=== PATIENT | female | born 1960 | race African-American/Black ===

== ENCOUNTER 2023-11-14 04:39 | Inpatient (IN) | payer OTHER ==
--- OUTSIDE RECORDS SUMMARY | 2023-11-14 04:43 | XMS REPORT | Continuity of Care Document ---
Author Name Unknown Address [address] [place] [address] [facility] Address [address] [place] [address] Care Team Providers Care Erp Developer Name Role Phone KELTON PIERRE Attending Clinician Unavailable LAINA GUDINO Attending Clinician SUKI Melissa Attending Clinician Unavaila Kelton Barajas DO Attending Clinician [phone] LAB90 Attending Clinician Unavailable Laina Gudino MD Attending Clinician [phone] JE SANABRIA Attending Clinician Unavailable Payers Payer Name Policy Type Policy Number Effective Date Expirati on Date Source [employer] MED[employer]ARE [employer]AGE DUAL PLAN HMO 7 [id number] 2022 00:00:00 Problems Condition Name Condition Details Condition Category Status Onset Date Resolution Date Last Treatment Date Treating Clinician Comments Source Gastroesop hageal reflux disease without esophagiti s Gastroesop hageal reflux disease without esophagiti s Disease Active 2021-11 00:00: 00 Evelina snow Primary hypertensi on Primary hypertensi on Disease Active 08-03 00:00: 00 Evelina Avitiaa edy Stage 3a chronic kidney disease Stage 3a chronic kidney disease Disease Active 08-03 00:00: 00 Evelina snow Elevated liver enzymes Elevated liver enzymes Disease Active 08-03 00:00: 00 Evelina Seybold - Externa l History of alcohol abuse History of alcohol abuse Disease Active 08-03 00:00: 00 Evelina Donovan - Externa l Primary insomnia Primary insomnia Disease Active 08-03 00:00: 00 Evelina Donovan - Externa l Prediabete s Prediabete s Disease Active 06-07 00:00: 00 Evelina Donovan - Externa l Social History Social Habit Start Date Stop Date Quantity Comments Source History SDOH Alcohol Frequency Evelina montero - External History SDOH Alcohol Std Drinks Evelina martinez - External History SDOH Alcohol Binge Evelina Donovan - External Alcohol intake 2022-09-29 00:00:00 2022-09-29 00:00:00 Ex-drinker (finding) Evelina Donovan - External Cigarettes smoked current (pack per day) - Reported 2022-08-03 00:00:00 2022-08-03 00:00:00 Evelina Donovan - External Cigarette pack-years 2022-08-03 00:00:00 2022-08-03 00:00:00 Evelina Donovan - External Tobacco use and exposure 2022-08-03 00:00:00 2022-08-03 00:00:00 Smokeless tobacco non-user Evelina Donovan - External Alcohol Comment 2022-08-03 00:00:00 2022-08-03 00:00:00 Previously heavy drinker. Quit in 2019 Evelina Donovan - External Education 2022-08-03 00:00:00 2022-08-03 00:00:00 16 Evelina Donovan - External Sex Ass[birth year] At 1960 00:00:00 1960 00:00:00 Evelina Donovan - External Smoking Status Start Date Stop Date Source Smokes tobacco daily 2022-08-03 00:00:00 Evelina Donovan - External Medications Ordered Medication Name Filled Medication Name Start Date Stop Date Current Medication? Ordering Clinician Indication Dosage Frequency Signature (SIG) Comments Components Source Escitalopra m Oxalate 10 MG oral Tablet 2021-11 00:00: 00 09-29 00:00 :00 No Evelina snow Carvedilol (Coreg) 3.125 MG oral Tablet 08-04 00:00: 00 Yes [id number] 3.125mg Take 1 tablet (3.125 mg total) by mouth in the morning and 1 tablet (3.125 mg total) in the evening. Take with meals. Evelina snow Carvedilol (Coreg) 3.125 MG oral Tablet 08-04 00:00: 00 Yes [id number] 3.125mg Take 1 tablet (3.125 mg total) by mouth in the morning and 1 tablet (3.125 mg total) in the evening. Take with meals. Evelina snow Amlodipine Besylate 10 MG oral Tablet 06-30 00:00: 00 Yes [id number] 10mg Take 1 tablet (10 mg total) by mouth daily Evelina snow Amlodipine Besylate 10 MG oral Tablet 06-30 00:00: 00 Yes [id number] 10mg Take 1 tablet (10 mg total) by mouth daily Evelina snow Vital Signs Vital Name Observation Time Observation Value Comments S ource Systolic blood pressure 2022-09-29 15:24:00 138 mm[Hg] Evelinarosie Matao ld - External Diastolic blood pressure 2022-09-29 15:24:00 70 mm[Hg] Evelina randallo ld - External Heart rate 2022-09-29 15:24:00 82 /min Evelyn mendoza Venus - External Body temperature 2022-09-29 15:24:00 36.28 Indira Evelina Semichelle - External Respiratory rate 2022-09-29 15:24:00 14 /min Evelina Donovan - External Body height 2022-09-29 15:24:00 160 cm Eleonora johnson Seybold - External Body weight 2022-09-29 15:24:00 68.947 kg Eleonora alex Joseybold - External BMI 2022-09-29 15:24:00 26.93 kg/m2 Eleonora alex Joseybold - External Systolic blood pressure 2022-08-31 15:37:00 130 mm[Hg] Evelinarosie Matao ld - External Diastolic blood pressure 2022-08-31 15:37:00 70 mm[Hg] Evelina randallo ld - External Heart rate 2022-08-31 14:58:00 77 /min Evelyn Donovan - External Body temperature 2022-08-31 14:58:00 36.17 Indira Evelina Donovan - External Respiratory rate 2022-08-31 14:58:00 14 /min Evelina Donovan - External Body height 2022-08-31 14:58:00 160 cm Eleonora johnson Seybold - External Body weight 2022-08-31 14:58:00 67.132 kg Eleonora ey Seybold - External BMI 2022-08-31 14:58:00 26.22 kg/m2 Eleonora ey Seybold - External Encounters Start Date/Time End Date/Time Encounter Type Admission Type Attending [facility] Care Department Encounter ID Source 2023-11-07 16:20:41 2023-11-07 16:20:41 Outpatient SFA SFA [id number] [place] 2023-11-05 13:38:31 2023-11-05 13:38:31 Outpatient SFA SFA [id number] [place] 2023-10-16 00:00:00 2023-10-16 00:00:00 Outpatient KELTON PIERRE [id number] Evelina ybcoco 2023-10-14 00:00:00 2023-10-14 00:00:00 Outpatient KELTON PIERRE [id number] Evelina Donovan 2023-09-21 08:23:47 2023-09-21 08:23:47 Outpatient SFA SFA [id number] [place] 2023-09-09 00:00:00 2023-09-09 00:00:00 Outpatient KELTON PIERRE [id number] Evelina ybcoco 2023-09-08 00:00:00 2023-09-08 00:00:00 Outpatient KELTON PIERRE [id number] Evelina Donovan 2023-06-05 13:04:29 2023-06-05 13:04:29 Outpatient SFA SFA [id number] [place] 2023-05-02 14:30:00 2023-05-02 14:30:00 Outpatient KELTON PIERRE [id number] Evelina [facility] 2023-04-27 00:00:00 2023-04-27 00:00:00 Outpatient KELTON PIERRE EVELINA MALIK [id number] Evelina [facility] 2023-04-11 13:26:37 2023-04-11 13:26:37 Outpatient SFA SFA [id number] [place] 2023-04-02 00:00:00 2023-04-02 00:00:00 Outpatient KELTON PIERREROSIE MALIK [id number] Evelina [facility] 2023-04-01 00:00:00 2023-04-01 00:00:00 Outpatient KELTON PIERRE EVELINA MALIK [id number] Evelina [facility] 2023-03-30 13:07:56 2023-03-30 13:07:56 Outpatient SFA SFA [id number] [address] [place] 2023-03-20 13:08:10 2023-03-20 13:08:10 Outpatient SFA SFA [id number] [facility] [place] 2023-03-01 08:15:00 2023-03-01 08:15:00 Outpatient KELTON PIERRE EVELINA MALIK [id number] Evelina [facility] 2022-12-29 00:00:00 2022-12-29 00:00:00 Outpatient LAINA GUDINO [id number] Evelina [facility] 2022-12-27 00:00:00 2022-12-27 00:00:00 Outpatient KELTON PIERRE EVELINA MALIK [id number] [facility] 2022-12-08 10:45:00 2022-12-08 10:45:00 Outpatient NAVARRO PIERRECLAYTON MALIK [id number] Evelina [facility] 2022-11-27 00:00:00 2022-11-27 00:00:00 Outpatient SUKI PANDA [id number] Evelina [facility] 2022-10-16 00:00:00 2022-10-16 00:00:00 Outpatient NAVARRO PIERRECLAYTON MALIK [id number] [facility] 2022-10-02 00:00:00 2022-10-02 00:00:00 Outpatient PREZAS, KELTON MALIK [id number] E[facility]ina [facility] 2022-10-02 00:00:00 2022-10-02 00:00:00 Outpatient PREZAS, KELTON MALIK [id number] Evelina [facility] 2022-09-29 10:30:00 2022-09-29 10:30:00 Outpatient PREZAS, KELTON MALIK [id number] E[facility]ina [facility] 2022-08-31 10:00:00 2022-08-31 10:00:00 Outpatient PREZAS, KELTON MALIK [id number] E[facility]ina [facility] 2022-08-05 00:00:00 2022-08-05 00:00:00 Outpatient LAINA GUDINO EVELINAROSIE MALIK [id number] Evelina [facility] 2022-08-04 00:00:00 2022-08-04 00:00:00 Outpatient PREZAS, KELTON MALIK [id number] Evelina [facility] 2022-08-03 11:15:00 2022-08-03 11:45:00 Office Visit Kelton Pierre [id number] Evelina [facility] 2022-07-25 00:00:00 2022-07-25 00:00:00 Outpatient PREZASKELTONSEY [id number] Evelina [facility] 2022-06-30 11:15:00 2022-06-30 11:15:00 Outpatient DARIEN HERRERASEY [id number] Evelina [facility] 2022-06-30 10:30:00 2022-06-30 11:00:00 Office Visit Laina Gudino [id number] Evelina [facility] 2022-06-16 13:45:00 2022-06-16 14:00:00 Office Visit Laina Gudino [place] [id number] Evelina michelle 2022-06-14 13:30:00 2022-06-14 13:30:00 Outpatient TERESE LAINA MALIK [id number] Evelina [facility] 2022-06-07 00:00:00 2022-06-07 00:00:00 Outpatient LAINA GUDINO [id number] Evel[facility] 2022-06-02 00:00:00 2022-06-02 00:00:00 Outpatient JE SANABRIA [id number] Evelina [facility] 2022-05-31 10:20:00 2022-05-31 10:20:00 Outpatient LAB90 EVELINA MALIK [id number] Evelina [facility] 2022-05-31 09:30:00 2022-05-31 10:00:00 Office Visit ManchesterLaina tuttledianelys [place] [id number] Evelina [facility]
[2023-11-14] MEDS ORDERED: ONDANSETRON 4 MG/2 ML VIAL ONE (05:17)
[2023-11-14] MEDS ORDERED: KETOROLAC 30 MG/ML INJ ONE (05:17)
[2023-11-14] MEDS ORDERED: MORPHINE 4 MG/ML SYR ONE ×4 (05:18→14:14)
[2023-11-14] MEDS ORDERED: NA CHLORIDE 0.9% 1,000 ML ONE ×2 (05:18→07:23)
[2023-11-14] MEDS ORDERED: FAMOTIDINE 20 MG/2 ML VIAL IV ONE (05:18)
[2023-11-14 05:25] LABS: Absolute Lymphocytes (CBC) 3.2 K/uL (0.7-4.9); Hematocrit 36.9 % (36.0-45.0); MCV 81.3 fL (80-100); MPV 8.7 fL (7.6-11.3); Platelets 346 thou/uL (152-406); RBC Red Blood Cell Count 4.54 M/uL (3.86-4.86)
[2023-11-14 05:40] LABS: Albumin 3.7 g/dL (3.4-5.0); Bilirubin Total 0.4 mg/dL (0.2-1.0); Protein, Total 8.6 g/dL (6.4-8.2)
[2023-11-14 05:57] LABS: Specific Gravity 1.021 (1.005-1.030); Urine Bacteria None Seen /HPF (<20); Urine Bilirubin NEGATIVE (Negative); Urine Blood Negative (Negative); Urine Clarity Extremely Turbid (Clear); Urine Color Yellow (Yellow); Urine Glucose NEGATIVE (Negative); Urine Mucus Slight /HPF (None Seen); Urine Protein 1+ (Negative); Urine Urobilinogen Normal (Normal)
--- NOTE | 2023-11-14 07:15 | EDPHYS ---
Physician Documentation [facility] Name: Donna Patino Age: 63 yrs Sex: Female : 1960 Arrival Date: 11/14/2023 Time: 04:39 Bed 15 Private MD: ED Physician Waldemar Vázquez HPI: 11/14 04:45 This 63 yrs old Black Female presents to ER via Unassigned with complaints of Abdominal sp4 Pain. 04:50 70-year-old male complains of diffuse abdominal pain particularly upper abdomen sp4 starting in September 2023. Reports associated nausea vomiting daily vomiting in response to food. Patient has arrived with EMS for worsening abdominal pain this morning. . Historical: - Allergies: 05:30 No Known Allergies; nw1 - PMHx: 05:30 Hypertension; nw1 - Immunization history:: Adult Immunizations up to date, Client reports having NOT received the Covid vaccine. Flu vaccine is not up to date. It has been more than one year since last vaccine. - Social history:: Smoking status: Patient/guardian denies using tobacco. - Family history:: not pertinent. ROS: 04:50 Constitutional: Negative for fever, chills, and weight loss, abdominal pain positive sp4 nausea vomiting 04:50 All other systems are negative, Exam: 04:50 Constitutional: This is a well developed, well nourished patient who is awake, alert, sp4 and in no acute distress. Head/Face: Normocephalic, atraumatic. Eyes: Pupils equal round and reactive to light, extra-ocular motions intact. Lids and lashes normal. Conjunctiva and sclera are not injected. Cornea within normal limits. Periorbital areas with no swelling, redness, or edema. ENT: Nares patent. No nasal discharge, no septal abnormalities noted. Tympanic membranes are normal and external auditory canals are clear. Oropharynx with no redness, swelling, or masses, exudates, or evidence of obstruction, uvula midline. Mucous membranes moist. Neck: Trachea midline, no thyromegaly or masses palpated, and no cervical lymphadenopathy. Supple, full range of motion without nuchal rigidity, or vertebral point tenderness. Chest/axilla: Normal chest wall appearance and motion. Nontender with no deformity. No lesions are appreciated. Cardiovascular: Regular rate and rhythm with a normal S1 and S2. No gallops, murmurs, or rubs. Normal PMI, no JVD. No pulse deficits. Respiratory: Lungs have equal breath sounds bilaterally, clear to auscultation and percussion. No rales, rhonchi or wheezes noted. No increased work of breathing, no retractions or nasal flaring. Abdomen/GI: Soft, with normal bowel sounds. No distension or tympany. No guarding or rebound. Does not have diffuse abdominal tenderness Back: No spinal tenderness. No costovertebral tenderness. Skin: Warm, dry with normal turgor. Normal color with no rashes, no lesions, and no evidence of cellulitis. MS/ Extremity: Pulses equal, no cyanosis. Neurovascular intact. Full, normal range of motion. Neuro: Awake and alert, GCS 15, oriented to person, place, time, and situation. Cranial nerves II-XII grossly intact. Motor strength 5/5 in all extremities. Sensory grossly intact. Psych: Awake, alert, with orientation to person, place and time. Behavior, mood, and affect are within normal limits Vital Signs: 04:49 BP 116 / 86; Pulse 80; Resp 18; Temp 99.1(O); Pulse Ox 100% on R/A; Weight 68.04 kg; oe Height 5 ft. 3 in. ; Pain 10/10; 06:07 BP 106 / 68; Pulse 62; Resp 16; Pulse Ox 100% on R/A; nw1 07:15 BP 113 / 68; Pulse 74; Resp 17; Pulse Ox 99% on R/A; rs5 08:46 BP 110 / 65; Pulse 77; Resp 17; Pulse Ox 99% on R/A; rs5 04:49 Body Mass Index 26.57 (68.04 kg, 160.02 cm) oe 04:49 Pain Scale: Adult oe [place] Coma Score: 05:35 Eye Response: spontaneous(4). Motor Response: obeys commands(6). Verbal Response: nw1 oriented(5). Total: 15. MDM: 04:52 Patient medically screened. sp4 06:53 ED course: CT - CLINICAL HISTORY: ABD PAIN TECHNIQUE: Real-time and coulter scale sp4 sonographic imaging of the gallbladder COMPARISON: None available for comparison FINDINGS: Gallbladder: No gallstones, wall thickening, or pericholecystic fluid. Common bile duct: 2.8 mm in diameter. There is no intrahepatic biliary ductal dilatation. IMPRESSION: No cholelithiasis or ultrasound signs of acute cholecystitis. . 07:07 ED course: CT -- CLINICAL HISTORY: ABD PAIN, VOMITING TECHNIQUE: Contiguous axial sp4 images obtained through the abdomen and pelvis without IV contrast. Sagittal and coronal reformatted images were provided. This exam was performed according to our departmental dose-optimization program, which includes automated exposure control, adjustment of the mA and/or kV according to patient size and/or use of iterative reconstruction technique. COMPARISON: None available for comparison. FINDINGS: Lung bases: Clear Liver: Unremarkable Gallbladder and biliary system: Unremarkable Pancreas: There is mild stranding adjacent to the tail of the pancreas extending to the left anterior pararenal space. This may reflect mild acute pancreatitis. Clinical correlation recommended. There are no organized peripancreatic fluid collections. Pancreatitis at the tail of the pancreas has been associated to occult mass in the body or head of the pancreas. Recommend further evaluation with follow-up contrast-enhanced CT or MRI of the pancreas. Spleen: Unremarkable Adrenals: Unremarkable Kidneys: No calculi. No hydronephrosis. Gl: No obstruction. No appreciable mucosal thickening. Appendix: No findings to suggest acute appendicitis. Urinary bladder: Unremarkable Reproductive: Unremarkable as visualized Lymph nodes: No pathologically enlarged lymph nodes. Peritoneum: No focal fluid collection. No free air. Vessels: No abdominal aortic aneurysm. Abdominal wall: Unremarkable Bones: UnremarkableNo acute bony pathology IMPRESSION: Mild stranding adjacent to the tail of the pancreas extending to the left anterior pararenal space. This may reflect mild acute pancreatitis. There are no organized peripancreatic fluid collections. Pancreatitis at the tail of the pancreas has been associated to occult mass in the body or head of the pancreas. Recommend further evaluation with follow-up contrast-enhanced CT or MRI of the pancreas. Electronically signed by: Nixon Casey MD 11/14/2023 07:00 AM. 07:13 Differential Diagnosis altered mental status, sepsis, flu. Data reviewed: vital signs, sp4 nurses notes, lab test result(s), radiologic studies, CT scan, ultrasound. ED course: Patient warrants admission for acute pancreatitis.. 11/14 04:50 Order name: CBC with Diff; Complete Time: 06:53 sp4 11/14 04:50 Order name: CMP; Complete Time: 06:53 sp4 11/14 04:50 Order name: Lipase; Complete Time: 06:53 sp4 11/14 04:50 Order name: Urinalysis w/ reflexes; Complete Time: 06:53 sp4 11/14 06:01 Order name: Urine Culture EDCA 11/14 10:06 Order name: Lipid Profile; Complete Time: 11:30 EDMS 11/14 04:50 Order name: Abdomen Limited US sp4 11/14 05:48 Order name: Abdomen EDCA 11/14 04:50 Order name: IV Saline Lock; Complete Time: 05:16 sp4 11/14 04:50 Order name: Labs collected and sent; Complete Time: 05:16 sp4 Administered Medications: 05:27 Drug: NS 0.9% IV 1000 ml IV at 1 bolus Per protocol; 1000 mL bolus Route: IV; Rate: 1 nw1 bolus; Site: left antecubital; 07:00 Follow up: Response: No adverse reaction rs5 05:27 Drug: Famotidine IVP 20 mg IVP once; dilute with 10 mL 0.9% NaCl; give over 2 minutes nw1 Route: IVP; Site: left antecubital; 07:00 Follow up: Response: No adverse reaction rs5 05:27 Drug: TORadol - Ketorolac IVP 15 mg IVP once Route: IVP; Site: left antecubital; nw1 07:00 Follow up: Response: No adverse reaction rs5 05:27 Drug: Ondansetron IVP 4 mg IVP once; over 2 minutes Route: IVP; Site: left antecubital; nw1 07:00 Follow up: Response: No adverse reaction rs5 05:27 Drug: morphine IVP or IV 4 mg IVP once over 4 mins Route: IVP; Infused Over: 4 mins; nw1 Site: left antecubital; 07:00 Follow up: Response: No adverse reaction rs5 07:20 Drug: morphine IVP or IV 4 mg IVP once over 4 mins Route: IVP; Infused Over: 4 mins; rs5 Site: left antecubital; 07:40 Follow up: Response: No adverse reaction; Pain is decreased rs5 07:20 Drug: metoCLOPramide IVP 10 mg IVP once; over 1 to 2 minutes Route: IVP; Site: left rs5 antecubital; 07:40 Follow up: Response: No adverse reaction; Nausea is decreased rs5 07:20 Drug: NS 0.9% IV 1000 ml IV at 1000 ml once Route: IV; Rate: 1000 ml; Site: left rs5 antecubital; 07:40 Follow up: Response: No adverse reaction rs5 Disposition Summary: 11/14/23 07:15 Hospitalization Ordered Notes: Hospitalization Status: Inpatient Admission sp4 Provider: Kranthi Castro sp4 Condition: Stable sp4 Problem: new sp4 Symptoms: have improved sp4 Bed/Room Type: Standard sp4 Location: Telemetry/MedSurg (Inpatient)(11/14/23 13:51) bd Room Assignment: 230(11/14/23 14:03) bd Diagnosis - Acute pancreatitis, nausea or vomiting sp4 Forms: - Medication Reconciliation Form sp4 - SBAR form sp4 - Leadership Thank You Letter sp4 Signatures: Dispatcher [employer] EDMS Xaio Cruz Lee, SLICE PLUG CUTTER OPERATOR-C SLICE PLUG CUTTER OPERATOR-Cla1 Felipa Felix, RN RN kb3 Wesley Christian RN RN rs5 Waldemar Vázquez MD MD sp4 Zarina Rao, AAMIR RN nw1 Corrections: (The following items were deleted from the chart) 05:48 04:50 Abdomen Pelvis W Con+CT.RAD.BRZ ordered. EDMS EDMS 08:44 07:15 Telemetry/MedSurg (Inpatient) sp4 kb3 08:44 07:15 sp4 kb3 13:51 08:44 [facility] ER HOLD kb3 bd 13:51 08:44 ERHOLD- kb3 bd 14:03 13:51 220 bd bd
--- NOTE | 2023-11-14 07:15 | ER ---
Nurse's Notes [facility] Name: Donna Patino Age: 63 yrs Sex: Female : 1960 Arrival Date: 11/14/2023 Time: 04:39 Bed 15 Private MD: Diagnosis: Acute pancreatitis, nausea or vomiting Presentation: 11/14 05:27 Chief complaint: Patient states: Abdominal pain: all over. Coronavirus screen: Client nw1 denies travel out of the [place] in the last 14 days. At this time, the client does not indicate any symptoms associated with coronavirus-19. Ebola Screen: Patient negative for fever greater than or equal to 101.5 degrees Fahrenheit, and additional compatible Ebola Virus Disease symptoms Patient denies exposure to infectious person. Patient denies travel to an Ebola-affected area in the 21 days before illness onset. No symptoms or risks identified at this time. Initial Sepsis Screen: Does the patient meet any 2 criteria? No. Patient's initial sepsis screen is negative. Does the patient have a suspected source of infection? No. Patient's initial sepsis screen is negative. Risk Assessment: Do you want to hurt yourself or someone else? Patient reports no desire to harm self or others. Onset of symptoms was October 18, 2023. 05:27 Method Of Arrival: EMS: [facility] nw1 05:27 Acuity: RUSSEL 3 nw1 Triage Assessment: 05:30 General: Appears uncomfortable, Behavior is calm, cooperative, appropriate for age. nw1 Pain: Complains of pain in abdomen. GI: Abdomen is distended, Bowel sounds diminished in right upper quadrant, left upper quadrant, right lower quadrant and left lower quadrant Abd is non tender in left upper quadrant. Derm: Skin is intact, is healthy with good turgor, Skin is dry, Skin is pink, warm \T\ dry. normal. Musculoskeletal: Reports weakness in generalized. Historical: - Allergies: 05:30 No Known Allergies; nw1 - PMHx: 05:30 Hypertension; nw1 - Immunization history:: Adult Immunizations up to date, Client reports having NOT received the Covid vaccine. Flu vaccine is not up to date. It has been more than one year since last vaccine. - Social history:: Smoking status: Patient/guardian denies using tobacco. - Family history:: not pertinent. Screenin:35 [facility] ED Fall Risk Assessment (Adult) History of falling in the last 3 months, nw1 including since admission No falls in past 3 months (0 pts) Confusion or Disorientation No (0 pts) Intoxicated or Sedated No (0 pts) Impaired Gait No (0 pts) Mobility Assist Device Used No (0 pt) Altered Elimination No (0 pt) Score/Fall Risk Level 0 - 2 = Low Risk Oriented to surroundings, Maintained a safe environment, Educated pt \T\ family on fall prevention, incl call for assistance when getting out of bed, Assessed \T\ reinforced patient's understanding of fall precautions, Provided non-skid footwear, Hourly rounding (assess needs \T\ fall precautionary measures) done. Abuse screen: Denies threats or abuse. Denies injuries from another. Nutritional screening: Has had N/V for 3 or more days. Tuberculosis screening: No symptoms or risk factors identified. Assessment: 05:35 Reassessment: See triage assessment. nw1 06:07 Reassessment: Pt returned from CT via wheelchair and psych tech. 0 s/s of acute distress nw1 noted at this time. Call light at bedside. Will continue to monitor. 07:00 General: Appears in no apparent distress. uncomfortable, Behavior is calm, cooperative. rs5 Pain: Complains of pain in upper abdomen bilat Pain does not radiate. Pain currently is 9 out of 10 on a pain scale. Quality of pain is described as aching, Pain began gradually, Is continuous. Neuro: Level of Consciousness is awake, alert, obeys commands, Oriented to person, place, time, situation. Cardiovascular: Heart tones S1 S2 present Rhythm is regular. Respiratory: Airway is patent Respiratory effort is even, unlabored, Respiratory pattern is regular, symmetrical, Breath sounds are clear bilaterally. GI: Abdomen is round non-distended, Bowel sounds present X 4 quads. Abdomen is tender to palpation in epigastric area, right upper quadrant and left upper quadrant Reports nausea, Pain is 9 out of 10 on a pain scale. GI: Reports constipation. : No signs and/or symptoms were reported regarding the genitourinary system. EENT: No signs and/or symptoms were reported regarding the EENT system. Derm: Skin is intact, Skin is dry, Skin is normal, Skin temperature is warm. Musculoskeletal: Range of motion: intact in all extremities. 07:05 Reassessment: Provider notified pt is experiencing pain and nausea. rs5 07:49 Reassessment: Patient and/or family updated on plan of care and expected duration. Pain rs5 level reassessed. Patient is alert, oriented x 3, equal unlabored respirations, skin warm/dry/pink. Patient denies pain at this time. Patient states feeling better. Patient states symptoms have improved. 08:46 Reassessment: No changes from previously documented assessment. rs5 Vital Signs: 04:49 BP 116 / 86; Pulse 80; Resp 18; Temp 99.1(O); Pulse Ox 100% on R/A; Weight 68.04 kg; oe Height 5 ft. 3 in. ; Pain 10/10; 06:07 BP 106 / 68; Pulse 62; Resp 16; Pulse Ox 100% on R/A; nw1 07:15 BP 113 / 68; Pulse 74; Resp 17; Pulse Ox 99% on R/A; rs5 08:46 BP 110 / 65; Pulse 77; Resp 17; Pulse Ox 99% on R/A; rs5 04:49 Body Mass Index 26.57 (68.04 kg, 160.02 cm) oe 04:49 Pain Scale: Adult oe Gunner Coma Score: 05:35 Eye Response: spontaneous(4). Motor Response: obeys commands(6). Verbal Response: nw1 oriented(5). Total: 15. ED Course: 04:40 Patient arrived in ED. jj6 04:44 Waldemar Vázquez MD is Attending Physician. sp4 04:55 Zarina Rao, RN is Primary Nurse. nw1 05:13 Radiology exam delayed due to lab results not completed at this time. (BUN/Creatinine) eh4 IV insertion attempt and/or patient not having appropriate IV at this time. 05:16 CBC with Diff Sent. nw1 05:16 CMP Sent. nw1 05:16 Lipase Sent. nw1 05:16 Urinalysis w/ reflexes Sent. nw1 05:30 Triage completed. nw1 05:30 Arm band placed on right wrist. Urine obtained. Labs ordered per protocol. Drawn by ED nw1 staff. 05:35 No provider procedures requiring assistance completed. Inserted saline lock: 20 gauge nw1 in left antecubital area, using aseptic technique. Blood collected. 05:35 Placed in gown. Bed in low position. Call light in reach. Side rails up X2. Provided nw1 Education on: POC. Client placed on continuous cardiac and pulse oximetry monitoring. NIBP monitoring applied. Pulse ox on. NIBP on. Door closed. Noise minimized. Warm blanket given. 05:43 Abdomen Limited US In Process Unspecified. EDMS 06:13 Abdomen In Process Unspecified. EDMS 07:14 Kranthi Castro MD is Hospitalizing Provider. sp4 08:46 Patient admitted, IV remains in place. rs5 Administered Medications: 05:27 Drug: NS 0.9% IV 1000 ml IV at 1 bolus Per protocol; 1000 mL bolus Route: IV; Rate: 1 nw1 bolus; Site: left antecubital; 07:00 Follow up: Response: No adverse reaction rs5 05:27 Drug: Famotidine IVP 20 mg IVP once; dilute with 10 mL 0.9% NaCl; give over 2 minutes nw1 Route: IVP; Site: left antecubital; 07:00 Follow up: Response: No adverse reaction rs5 05:27 Drug: TORadol - Ketorolac IVP 15 mg IVP once Route: IVP; Site: left antecubital; nw1 07:00 Follow up: Response: No adverse reaction rs5 05:27 Drug: Ondansetron IVP 4 mg IVP once; over 2 minutes Route: IVP; Site: left antecubital; nw1 07:00 Follow up: Response: No adverse reaction rs5 05:27 Drug: morphine IVP or IV 4 mg IVP once over 4 mins Route: IVP; Infused Over: 4 mins; nw1 Site: left antecubital; 07:00 Follow up: Response: No adverse reaction rs5 07:20 Drug: morphine IVP or IV 4 mg IVP once over 4 mins Route: IVP; Infused Over: 4 mins; rs5 Site: left antecubital; 07:40 Follow up: Response: No adverse reaction; Pain is decreased rs5 07:20 Drug: metoCLOPramide IVP 10 mg IVP once; over 1 to 2 minutes Route: IVP; Site: left rs5 antecubital; 07:40 Follow up: Response: No adverse reaction; Nausea is decreased rs5 07:20 Drug: NS 0.9% IV 1000 ml IV at 1000 ml once Route: IV; Rate: 1000 ml; Site: left rs5 antecubital; 07:40 Follow up: Response: No adverse reaction rs5 Medication: 05:35 VIS not applicable for this client. nw1 Outcome: 07:15 Decision to Hospitalize by Provider. sp4 08:46 Admitted to ER Hold. Please see [facility] for further documentation. rs5 08:46 Condition: stable 08:46 Instructed on the need for admit, Demonstrated understanding of instructions, 15:01 Patient left the ED. rs5 Signatures: Dispatcher [employer] EDMS Carlos Eduardo Elizabeth Jennifer jj6 Regina Brown 4 Wesley Christian, AAMIR RN rs5 Waldemar Vázquez MD MD sp4 Zarina Rao, AAMIR RN nw1
[2023-11-14] MEDS ORDERED: METOCLOPRAMIDE 10 MG/2mL INJ ONE (07:16)
[2023-11-14] MEDS: NA CHLORIDE 0.9% 1,000 ML IV SCH ×4 (08:27→23:45)
[2023-11-14 08:41] VITALS: BMI 26.5
[2023-11-14] MEDS ORDERED: ENOXAPARIN 30 MG/0.3 ML SQ ONE (09:36)
[2023-11-14] MEDS: ENOXAPARIN 30 MG/0.3 ML SQ SCH (10:00)
--- NOTE | 2023-11-14 10:38 | P.HP ---
Certification for Inpatient Patient admitted to: Inpatient With expected LOS: >2 Midnights Patient will require the following post-hospital care: None Practitioner: I am a practitioner with admitting privileges, knowledge of patient current condition, hospital course, and medical plan of care. Services: Services provided to patient in accordance with Admission requirements found in Title 42 Section 412.3 of the Code of Federal Regulations <Skyler Patel Tonie Panchal - Last Filed: 11/14/23 10:35> Patient History Date of Service: 11/14/23 Reason for admission: Acute pancreatitis History of Present Illness: 63-year-old female with history of CKD 3, hypertension, hyperlipidemia presents to the emergency department with chief complaint of epigastric pain, nausea, vomiting. She reports the symptoms have been episodic in nature but going on since September, the last week she has had worsening symptoms with pain/nausea/vomiting. She denies similar episodes in the past. She was evaluated in the emergency department labs are significant for creatinine 1.75 GFR 32 lipase 76 white blood cell count 11.8 CT of the abdomen pelvis suggestive of mild acute pancreatitis, abdominal ultrasound was negative for acute findings. Patient denies use of alcohol, lipid panel has been obtained since admission and is normal without significantly elevated triglycerides. Pain has improved mildly, patient will need to be admitted for acute pancreatitis. - Past Medical/Surgical History Has patient received pneumonia vaccine in the past: No -: Hypertension -: Hyperlipidemia -: CKD 3 -: Knee surgery Psychosocial/ Personal History: Lives at home with family - Family History Family History: Reviewed- Non-Contributory - Social History Smoking Status: Never smoker Alcohol use: No CD- Drugs: No Caffeine use: Yes Place of Residence: Home <Skyler Patel - Last Filed: 11/14/23 10:35> Date of Service: 11/14/23 <Kranthi Castro - Last Filed: 11/14/23 21:38> Allergies No Known Allergies Allergy (Unverified 02/14/13 09:21) Review of Systems 10-point ROS is otherwise unremarkable Gastrointestinal: Nausea, Vomiting, Abdominal Pain <Skyler Patel - Last Filed: 11/14/23 10:35> Physical Examination - Physical Exam General: Alert, In no apparent distress, Oriented x3 HEENT: Atraumatic, PERRLA Neck: Supple Respiratory: Clear to auscultation bilaterally, Normal air movement Cardiovascular: Regular rate/rhythm, Normal S1 S2 Gastrointestinal: Normal bowel sounds, Tenderness (Mild epigastric tenderness) Musculoskeletal: No tenderness Integumentary: No rashes Neurological: Normal gait, Normal speech, Normal strength at 5/5 x4 extr, Normal tone - Studies Laboratory Data (last 24 hrs) 11/14/23 11/14/23 05:13 05:13 WBC 11.80 H Hgb 12.1 Hct 36.9 Plt Count 346 Sodium 136 Potassium 4.0 BUN 20 H Creatinine 1.75 H Glucose 121 H Total Bilirubin 0.4 AST 12 L ALT 23 Alkaline Phosphatase 102 Lipase 76 H <Skyler Patel - Last Filed: 11/14/23 10:35> - Studies Laboratory Data (last 24 hrs) 11/14/23 11/14/23 05:13 05:13 WBC 11.80 H Hgb 12.1 Hct 36.9 Plt Count 346 Sodium 136 Potassium 4.0 BUN 20 H Creatinine 1.75 H Glucose 121 H Total Bilirubin 0.4 AST 12 L ALT 23 Alkaline Phosphatase 102 Lipase 76 H <Kranthi Castro - Last Filed: 11/14/23 21:38> Assessment and Plan - Plan Assessment: Acute pancreatitis CKD 3 Hypertension Hyperlipidemia Plan: Acute pancreatitis Continue aggressive IV fluids N.p.o. aside from ice chips/sips of water at this time As needed pain medication/antiemetics Trend labs/lipase Denies alcohol use, triglycerides normal Will need to review home medications for possible contributing factors denies previous episodes of pancreatitis CKD 3 Continue gentle hydration, monitor chemistry daily Hypertension Hyperlipidemia Review home medications, restart as appropriate. DVT PPX: Lovenox Code status: Full Discharge Plan: Home Plan to discharge in: 48 Hours - Advance Directives Does patient have a Living Will: No Does patient have a Durable POA for Healthcare: No - Code Status/Comfort Care Code Status Assessed: Yes (Full code) Critical Care: No Time Spent Managing Pts Care (In Minutes): 55 <Skyler Patel - Last Filed: 11/14/23 10:35> Physician Review: Patient Assessed, Agree with Above Assessment and Plan Physician Review Additional Text: Patient examined. moderate- severe epigastric tenderness reports 2 months of abd pain and nausea/vomiting ~1 hour after drinkin or eating, doesn't matter what denies GERD symptoms, denies prior pancreatitis reports she has to urinate every ~1 hour, same amount each time; ongoing for ~1 year. Has been told it's due to kidney disease; has not seen urology / nephrology / OBGYN denies incontinence. No particular change in urinary habits in last few weeks, denies fever. abd pain - epigastric and radiates towards back, worsens ~1hr after eating/drinking, tender worse at night when laying flat, only relieved by not pushing on area and by sitting up at night denies any prior EGDs unclear etiology. CT notes stranding near pancreatic tail, minimal rise in lipase and LFTs normal possible pancreatitis, but can't exclude gastric ulcer, biliary dyskinesia, SMA Syndrome / ischemia will consult general surgery consult nephro, optimize renal function, and weigh in on CT angio <Kranthi Castro - Last Filed: 11/14/23 21:38>
--- NOTE | 2023-11-14 10:47 | RAD REPORT ---
EXAM DESCRIPTION: Abdomen Pelvis Wo Contrast CLINICAL HISTORY: ABD PAIN, VOMITING TECHNIQUE: Contiguous axial images obtained through the abdomen and pelvis without IV contrast. Sagi ttal and coronal reformatted images were provided. This exam was performed according to our departmental dose-optimization program, which includes autom ated exposure control, adjustment of the mA and/or kV according to patient size and/or use of iterati ve reconstruction technique. COMPARISON: None available for comparison. FINDINGS: Lung bases: Clear Liver: Unremarkable Gallbladder and biliary system: Unremarkable Pancreas: There is mild stranding adjacent to the tail of the pancreas extending to the left anterior pararenal space. This may reflect mild acute pancreatitis. Clinical correlation recommended. There a re no organized peripancreatic fluid collections. Pancreatitis at the tail of the pancreas has been associated to occult mass in the body or head of th e pancreas. Recommend further evaluation with follow-up contrast-enhanced CT or MRI of the pancreas. Spleen: Unremarkable Adrenals: Unremarkable Kidneys: No calculi. No hydronephrosis. Gl: No obstruction. No appreciable mucosal thickening. Appendix: No findings to suggest acute appendicitis. Urinary bladder: Unremarkable Reproductive: Unremarkable as visualized Lymph nodes: No pathologically enlarged lymph nodes. Peritoneum: No focal fluid collection. No free air. Vessels: No abdominal aortic aneurysm. Abdominal wall: Unremarkable Bones: UnremarkableNo acute bony pathology IMPRESSION: Mild stranding adjacent to the tail of the pancreas extending to the left anterior parar enal space. This may reflect mild acute pancreatitis. There are no organized peripancreatic fluid col lections. Pancreatitis at the tail of the pancreas has been associated to occult mass in the body or head of the pancreas. Recommend further evaluation with follow-up contrast-enhanced CT or MRI of the pancreas. Electronically signed by: Nixon Casey MD 11/14/2023 07:00 AM TECHNICAL PLANNER Due to temporary technical issues with the PACS/Fluency reporting system, reports are being signed by the in house radiologists without review as a courtesy to insure prompt reporting. The interpreting radiologist is fully responsible for the content of the report.
[2023-11-14] MEDS: MORPHINE 4 MG/ML SYR IV PRN ×3 (11:10→23:44)
--- NOTE | 2023-11-14 11:27 | RAD REPORT ---
EXAM DESCRIPTION: Abdomen Exam Limited CLINICAL HISTORY: ABD PAIN TECHNIQUE: Real-time and coulter scale sonographic imaging of the gallbladder COMPARISON: None available for comparison FINDINGS: Gallbladder: No gallstones, wall thickening, or pericholecystic fluid. Common bile duct: 2.8 mm in diameter. There is no intrahepatic biliary ductal dilatation. IMPRESSION: No cholelithiasis or ultrasound signs of acute cholecystitis. Electronically signed by: Nioxn Casey MD 11/14/2023 06:35 AM COMMUNITY RELATIONS DIRECTOR Due to temporary technical issues with the PACS/Fluency reporting system, reports are being signed by the in house radiologists without review as a courtesy to insure prompt reporting. The interpreting radiologist is fully responsible for the content of the report.
--- NOTE | 2023-11-14 21:03 | P.CNS ---
Date of Consult: 11/16/23 Reason for Consult: SHANA/ CKD Requesting Physician: Kranthi Castro Primary Care Provider: Radha Thompson NP Chief Complaint: Acute pancreatitis History of Present Illness: 63-year-old female with history of CKD 3, hypertension, hyperlipidemia presents to the emergency department with chief complaint of epigastric pain, nausea, vomiting. She reports the symptoms have been episodic in nature but going on since September, the last week she has had worsening symptoms with pain/nausea/vomiting. She denies similar episodes in the past. She was evaluated in the emergency department labs are significant for creati nine 1.75 GFR 32 lipase 76 white blood cell count 11.8 CT of the abdomen pelvis suggestive of mild acute pancreatitis, abdominal ultrasound was negative for acute findings. Patient denies use of alcohol, lipid panel has been obtained since admission and is normal without significantly elevated triglycerides. Pain has improved mildly, patient will need to be admitted for acute pancreatitis. 04:45 This 63 yrs old Black Female presents to ER via Unassigned with complaints of Abdominal sp4 Pain. 04:50 70-year-old male complains of diffuse abdominal pain particularly upper abdomen sp4 starting in September 2023. Reports associated nausea vomiting daily vomiting in response to food. Patient has arrived with EMS for worsening abdominal pain this morning. Allergies No Known Allergies Allergy (Unverified 02/14/13 09:21) Home medications list reviewed: Yes Home Medications: Atorvastatin Calcium 20 mg PO DAILY 11/14/23 Carvedilol [Coreg] 1 tab PO BID 11/14/23 Citalopram Hydrobromide [Celexa] 20 mg PO DAILY 11/14/23 Diclofenac Sodium [Voltaren] 75 mg PO BID 11/14/23 Lisinopril [Zestril] 40 mg PO DAILY 11/14/23 - Past Medical/Surgical History -: HTN -: HLD -: CKD III with Proteinuria (Dr. Page/ Dr. Zavala) -: Knee surgery Psychosocial/ Personal History: Lives at home with family - Social History Smoking Status: Current every day smoker Alcohol use: No CD- Drugs: No Caffeine use: Yes Place of Residence: Home Review of Systems 10-point ROS is otherwise unremarkable Physical Examination Temp Pulse Resp BP Pulse Ox 97.9 F 57 16 103/61 98 11/14/23 16:00 11/14/23 16:00 11/14/23 16:00 11/14/23 16:00 11/14/23 16:00 General: In no apparent distress, Oriented x3, Cooperative HEENT: Atraumatic Neck: Supple Respiratory: Clear to auscultation bilaterally Cardiovascular: No edema Gastrointestinal: Soft and benign, Non-distended Musculoskeletal: No clubbing, No contractures Integumentary: No rashes, No cyanosis Neurological: Normal speech Laboratory Data (last 24 hrs) 11/14/23 11/14/23 05:13 05:13 WBC 11.80 H Hgb 12.1 Hct 36.9 Plt Count 346 Sodium 136 Potassium 4.0 BUN 20 H Creatinine 1.75 H Glucose 121 H Total Bilirubin 0.4 AST 12 L ALT 23 Alkaline Phosphatase 102 Lipase 76 H Imagings Data: darrenrice EXAM DESCRIPTION: Abdomen Pelvis Wo Contrast CLINICAL HISTORY: ABD PAIN, VOMITING TECHNIQUE: Contiguous axial images obtained through the abdomen and pelvis without IV contrast. Sagittal and coronal reformatted images were provided. This exam was performed according to our departmental dose-optimization program, which includes automated exposure control, adjustment of the mA and/or kV according to patient size and/or use of iterative reconstruction technique. COMPARISON: None available for comparison. FINDINGS: Lung bases: Clear Liver: Unremarkable Gallbladder and biliary system: Unremarkable Pancreas: There is mild stranding adjacent to the tail of the pancreas extending to the left anterior pararenal space. This may reflect mild acute pancreatitis. Clinical correlation recommended. There are no organized peripancreatic fluid collections. Pancreatitis at the tail of the pancreas has been associated to occult mass in the body or head of the pancreas. Recommend further evaluation with follow-up contrast-enhanced CT or MRI of the pancreas. Spleen: Unremarkable Adrenals: Unremarkable Kidneys: No calculi. No hydronephrosis. Gl: No obstruction. No appreciable mucosal thickening. Appendix: No findings to suggest acute appendicitis. Urinary bladder: Unremarkable Reproductive: Unremarkable as visualized Lymph nodes: No pathologically enlarged lymph nodes. Peritoneum: No focal fluid collection. No free air. Vessels: No abdominal aortic aneurysm. Abdominal wall: Unremarkable Bones: UnremarkableNo acute bony pathology IMPRESSION: Mild stranding adjacent to the tail of the pancreas extending to the left anterior pararenal space. This may reflect mild acute pancreatitis. There are no organized peripancreatic fluid collections. Pancreatitis at the tail of the pancreas has been associated to occult mass in the body or head of the pancreas. Recommend further evaluation with follow-up contrast-enhanced CT or MRI of the pancreas. darrenrice EXAM DESCRIPTION: Abdomen Exam Limited CLINICAL HISTORY: ABD PAIN TECHNIQUE: Real-time and coulter scale sonographic imaging of the gallbladder COMPARISON: None available for comparison FINDINGS: Gallbladder: No gallstones, wall thickening, or pericholecystic fluid. Common bile duct: 2.8 mm in diameter. There is no intrahepatic biliary ductal dilatation. IMPRESSION: No cholelithiasis or ultrasound signs of acute cholecystitis. Conclusions/Impression: Stage I SHANA in the setting of hypovolemia complicated by diclofenac and lisinopril CKD IIIb with Proteinuria -No NSAIDs -Change IVF to 1/2NS HTN with CKD -Hold lisinopril at this time; may restart as indicated Anemia in chronic illness Microcytosis -Check iron status Acute Cystitis with hematuria -Follow up with culture Cigarette Smoker -Recommend cessation Hospitalist and ER notes reviewed Thank you kindly for the consultation
[2023-11-15 02:50] LABS: Absolute Lymphocytes (CBC) 4.1 K/uL (0.7-4.9); Hematocrit 29.1 % (36.0-45.0); Lymphocytes % 41.2 % (15.3-44.8); MCV 82.3 fL (80-100); MPV 9.3 fL (7.6-11.3); Platelets 251 thou/uL (152-406); RBC Red Blood Cell Count 3.54 M/uL (3.86-4.86)
[2023-11-15 03:01] LABS: Albumin 2.7 g/dL (3.4-5.0); Bilirubin Total 0.3 mg/dL (0.2-1.0); Magnesium 2.1 mg/dL (1.6-2.4); Potassium 4.3 mEq/L (3.5-5.1); Protein, Total 6.6 g/dL (6.4-8.2)
[2023-11-15] MEDS: NA CHLORIDE 0.9% 1,000 ML IV SCH (04:27)
[2023-11-15] MEDS: MORPHINE 4 MG/ML SYR IV PRN ×2 (04:52→09:33)
[2023-11-15] MEDS ORDERED: NA CHLORIDE 0.9% 1,000 ML IV SCH (09:19)
--- NOTE | 2023-11-15 09:19 | P.PN ---
Date of Service: 11/15/23 Subjective: pain improving no further episodes of vomiting this far ROS: 10 point ROS as noted above, otherwise negative Physical exam GEN: Alert, oriented, NAD HEENT: Normal conjunctiva, sclera anicteric CV: Regular rate and rhythm, no edema Pulm: Nonlabored respirations on room air ABD: Soft, nontender, nondistended MSK: No joint tenderness Integumentary: No rashes Neuro: Normal speech, normal affect Vitals reviewed Assessment: Acute pancreatitis CKD 3 Hypertension Hyperlipidemia Plan: Acute pancreatitis Continue IVF, clear liquids As needed pain medication/antiemetics Denies alcohol use, triglycerides normal denies previous episodes of pancreatitis reports 2 months of abd pain and nausea/vomiting ~1 hour after drinkin or eating, doesn't matter what denies GERD symptoms, denies prior pancreatitis reports she has to urinate every ~1 hour, same amount each time; ongoing for ~1 year. Has been told it's due to kidney disease; has not seen urology / nephrology / OBGYN denies incontinence. No particular change in urinary habits in last few weeks, denies fever. denies any prior EGDs unclear etiology. CT notes stranding near pancreatic tail, minimal rise in lipase and LFTs normal possible pancreatitis, but can't exclude gastric ulcer, biliary dyskinesia, SMA Syndrome / ischemia general surgery consult CKD 3 Continue gentle hydration, monitor chemistry daily credit improved from 1.75 to 1.2 6 Today Nephrology consult in place Hypertension Hyperlipidemia Review home medications, restart as appropriate. VTE: lovenox Code: full Dispo: 24-48 hours Time Spent Managing Pts Care (In Minutes): 35
[2023-11-15] MEDS: ENOXAPARIN 30 MG/0.3 ML SQ SCH (09:33)
[2023-11-15] MEDS: NACHLORIDE 0.45% 1,000 ML IV SCH (12:00)
[2023-11-15] MEDS ORDERED: NACHLORIDE 0.45% 1,000 ML IV SCH (12:00)
[2023-11-15] MEDS ORDERED: SODIUM CHLORIDE 0.9% 10ML INJ IV PRN (17:28)
--- NOTE | 2023-11-15 20:46 | RAD REPORT ---
EXAM DESCRIPTION: CT - Pelvis Angio - 11/15/2023 3:25 pm CLINICAL HISTORY: persistent abd pain after eating/n/v COMPARISON: Abdomen Angio dated 11/15/2023 TECHNIQUE: Thin axial CT images of the abdomen and pelvis were obtained during administration of 100 mLIsovue 370 IV contrast. Sagittal and coronal reconstructions as well as maximal intensity projecti on reconstruction were generated and reviewed per an aortic angiography protocol. All CT scans are performed using dose optimization technique as appropriate and may include automated exposure control or mA/KV adjustment according to patient size. FINDINGS: Abdominal aorta normal in diameter with no dissection or other acute aortic findings. Сергей nstruction images show no significant findings. The included lung bases are clear. No abnormal mediastinal or hilar mass or lymphadenopathy seen. No chest wall mass or abnormal axillar y lymphadenopathy. Celiac, SMA and renal arteries show no suspicious findings. Solid abdominal viscera and bowel show no significant findings. Diastasis recti with small fat containing umbilical hernia. No mass or abnorma l lymphadenopathy. IMPRESSION: No acute abnormalities on CT angiogram of the aorta. No other significant findings on CT abdomen and pelvis examination.
[2023-11-15] MEDS: PANTOPRAZOLE 40 MG INJ IVP SCH (21:05)
--- NOTE | 2023-11-15 21:33 | RAD REPORT ---
EXAM DESCRIPTION: CT - Abdomen Angio - 11/15/2023 3:25 pm CLINICAL HISTORY: Persistent abd pain after eating/n/v COMPARISON: Abdomen Angio dated 11/15/2023 TECHNIQUE: Thin axial CT images of the abdomen and pelvis were obtained during administration of 10 0 mL Isovue 370 IV contrast. Sagittal and coronal reconstructions as well as maximal intensity projec tion reconstruction were generated and reviewed per an aortic angiography protocol. All CT scans are performed using dose optimization technique as appropriate and may include automated exposure control or mA/KV adjustment according to patient size. FINDINGS: Abdominal aorta normal in diameter with no dissection or other acute aortic findings. Rec onstruction images show no significant findings. The included lung bases are clear. No abnormal mediastinal or hilar mass or lymphadenopathy seen. No chest wall mass or abnormal axillar y lymphadenopathy. Celiac, SMA and renal arteries show no suspicious findings. Solid abdominal viscera and bowel show no significant findings. Diastasis recti with small fat containing umbilical hernia. No mass or abnorma l lymphadenopathy. IMPRESSION: No acute abnormalities on CT angiogram of the aorta. No other significant findings on CT abdomen and pelvis examination.
[2023-11-16 03:52] LABS: Absolute Lymphocytes (CBC) 3.4 K/uL (0.7-4.9); Hematocrit 29.8 % (36.0-45.0); MCV 83.2 fL (80-100); Platelets 297 thou/uL (152-406); RBC Red Blood Cell Count 3.59 M/uL (3.86-4.86)
[2023-11-16 04:05] LABS: Albumin 2.9 g/dL (3.4-5.0); Bilirubin Total 0.3 mg/dL (0.2-1.0); Magnesium 1.8 mg/dL (1.6-2.4); Phosphorus 2.7 mg/dL (2.5-4.9); Potassium 3.9 mEq/L (3.5-5.1); Protein, Total 6.9 g/dL (6.4-8.2); Uric Acid 5.5 mg/dL (2.6-6.0)
[2023-11-16 05:15] LABS: Hepatitis B Surface Ab - Quant 3.59 mIU/mL (<8.0); Hepatitis B surface AG Interp. Nonreactive (Nonreactive); Hepatitis C Virus Ab Nonreactive (Nonreactive)
[2023-11-16] MEDS: NACHLORIDE 0.45% 1,000 ML IV SCH ×4 (08:00→18:00)
[2023-11-16] MEDS ORDERED: SOD FERRIC GLUC COMPLX/SUCROSE 250 MG in NA CHLORIDE 0.9% 250 ML IV SCH ×2 (09:00→16:30)
[2023-11-16] MEDS: PANTOPRAZOLE 40 MG INJ IVP SCH (11:15)
[2023-11-16] MEDS ORDERED: Ringers Lactate 1,000 ML IV ONE (12:20)
[2023-11-16] MEDS ORDERED: propofoL 200 MG/20 ML VIAL IV ONE (14:05)
[2023-11-16] MEDS ORDERED: LIDOCAINE 1% MPF 5 ML VIAL ONE (14:05)
[2023-11-16] MEDS: PANTOPRAZOLE INJ 80 MG in NA CHLORIDE 0.9% 250 ML IV SCH ×2 (15:00→18:14)
--- NOTE | 2023-11-16 18:36 | P.PN ---
Date of Service: 11/16/23 Subjective: pain improving slightly no further episodes of vomiting thus far ROS: 10 point ROS as noted above, otherwise negative Physical exam GEN: Alert, oriented, NAD HEENT: Normal conjunctiva, sclera anicteric CV: Regular rate and rhythm, no edema Pulm: Nonlabored respirations on room air ABD: Soft, tender to palpation in epigastrium Neuro: Normal speech, normal affect Vitals reviewed Assessment: epigastric pain, duodenal ulcer SHANA on CKD 2 Hypertension Hyperlipidemia epigastric pain, duodenal ulcer CTA done - negative for arterial issue lipase minimally elevated on admission. ED reported suspicion for pancreatitis Patient's symptomatology not classic for pancreatitis not much risk factors Broadened the differential and further workup done General surgery, Dr. Riley consulted EGD (11/16): Large duodenal ulcer causing some degree of obstruction Switch twice daily Protonix to Protonix drip empiric h pylori treatment, added clarithomycin and amoxicillin to start Dr. Riley recommended ice chips/sips of water for now PRN pain meds, antiemetics lipase normal SHANA on CKD 2 Continue gentle hydration, monitor chemistry daily renal function improved Nephrology consulted Hypertension Hyperlipidemia Review home medications, restart as appropriate. VTE: lovenox held for EGD Code: full Dispo: 24-48 hours Time Spent Managing Pts Care (In Minutes): 35
--- NOTE | 2023-11-16 19:01 | P.PN ---
Date of Service: 11/16/23 Vital Signs Temp Pulse Resp BP Pulse Ox 97.3 F 65 19 123/75 100 11/16/23 16:00 11/16/23 16:00 11/16/23 16:00 11/16/23 16:00 11/16/23 16:00 Medications Amoxicillin (Amoxicillin Trihydr 250 Mg Cap) 1,000 mg PO BID ZACK; Protocol Clarithromycin (Clarithromycin 500 Mg Tablet) 500 mg PO BID ZACK; Protocol Sodium Chloride (Sodium Chloride 0.45%) 1,000 mls @ 100 mls/hr IV .Q10H ZACK Last Admin: 11/16/23 11:16 Dose: 1,000 mls Ferric Sodium Gluconate Complex 250 mg/ Sodium Chloride 270 mls @ 135 mls/hr IV Q24H ZACK Stop: 11/19/23 18:29 Last Admin: 11/16/23 15:38 Dose: 270 mls Pantoprazole Sodium 80 mg/ (Sodium Chloride) 250 mls @ 25 mls/hr IV Q10H ZACK; Protocol Last Admin: 11/16/23 18:14 Dose: 250 mls Morphine Sulfate (Morphine 4 Mg/Ml Syr) 4 mg IV Q4H PRN PRN Reason: Pain scale 8-10 (Severe) Last Admin: 11/15/23 09:33 Dose: 4 mg Ondansetron HCl (Ondansetron 4 Mg/2 Ml Vial) 4 mg IV Q6HP PRN PRN Reason: NAUSEA / VOMITING Sodium Chloride (Sodium Chloride 0.9% 10ml Inj) 10 ml IV UD PRN PRN Reason: Diluant Microbiology Results 11/14/23 05:10 Clean Catch Urine [place] Count - Final No growth. 11/14/23 05:10 Clean Catch Urine - Final No growth. Assessment/ Plan: Nephrology No dyspnea No chest pain Feeling better EGD pending today No acute events overnight Vitals, medications, blood work and imaging reviewed in the chart. General: In no apparent distress, Oriented x3, Cooperative HEENT: Atraumatic Neck: Supple Respiratory: Clear to auscultation bilaterally Cardiovascular: No edema Gastrointestinal: Soft and benign, Non-distended Musculoskeletal: No clubbing, No contractures Integumentary: No rashes, No cyanosis Neurological: Normal speech Laboratory Data (last 24 hrs) 11/14/23 11/14/23 05:13 05:13 WBC 11.80 H Hgb 12.1 Hct 36.9 Plt Count 346 Sodium 136 Potassium 4.0 BUN 20 H Creatinine 1.75 H Glucose 121 H Total Bilirubin 0.4 AST 12 L ALT 23 Alkaline Phosphatase 102 Lipase 76 H Imagings Data: darrenrice EXAM DESCRIPTION: Abdomen Pelvis Wo Contrast CLINICAL HISTORY: ABD PAIN, VOMITING TECHNIQUE: Contiguous axial images obtained through the abdomen and pelvis without IV contrast. Sagittal and coronal reformatted images were provided. This exam was performed according to our departmental dose-optimization program, which includes automated exposure control, adjustment of the mA and/or kV according to patient size and/or use of iterative reconstruction technique. COMPARISON: None available for comparison. FINDINGS: Lung bases: Clear Liver: Unremarkable Gallbladder and biliary system: Unremarkable Pancreas: There is mild stranding adjacent to the tail of the pancreas extending to the left anterior pararenal space. This may reflect mild acute pancreatitis. Clinical correlation recommended. There are no organized peripancreatic fluid collections. Pancreatitis at the tail of the pancreas has been associated to occult mass in the body or head of the pancreas. Recommend further evaluation with follow-up contrast-enhanced CT or MRI of the pancreas. Spleen: Unremarkable Adrenals: Unremarkable Kidneys: No calculi. No hydronephrosis. Gl: No obstruction. No appreciable mucosal thickening. Appendix: No findings to suggest acute appendicitis. Urinary bladder: Unremarkable Reproductive: Unremarkable as visualized Lymph nodes: No pathologically enlarged lymph nodes. Peritoneum: No focal fluid collection. No free air. Vessels: No abdominal aortic aneurysm. Abdominal wall: Unremarkable Bones: UnremarkableNo acute bony pathology IMPRESSION: Mild stranding adjacent to the tail of the pancreas extending to the left anterior pararenal space. This may reflect mild acute pancreatitis. There are no organized peripancreatic fluid collections. Pancreatitis at the tail of the pancreas has been associated to occult mass in the body or head of the pancreas. Recommend further evaluation with follow-up contrast-enhanced CT or MRI of the pancreas. darrenrice EXAM DESCRIPTION: Abdomen Exam Limited CLINICAL HISTORY: ABD PAIN TECHNIQUE: Real-time and coulter scale sonographic imaging of the gallbladder COMPARISON: None available for comparison FINDINGS: Gallbladder: No gallstones, wall thickening, or pericholecystic fluid. Common bile duct: 2.8 mm in diameter. There is no intrahepatic biliary ductal dilatation. IMPRESSION: No cholelithiasis or ultrasound signs of acute cholecystitis. Conclusions/Impression: Stage I SHANA in the setting of hypovolemia complicated by diclofenac and lisinopril CKD IIIb with Proteinuria -No NSAIDs -Continue IVF to 1/2NS -Repeat urine ordered HTN with CKD -Hold lisinopril at this time; restart as indicated Anemia in chronic illness Iron Deficiency 18% -Monitor H&H -Continue IV iron Cigarette Smoker -Recommend cessation Hospitalist and ER notes reviewed
[2023-11-16] MEDS: AMOXICILLIN TRIHYDR 250 MG CAP PO SCH (20:28)
[2023-11-16] MEDS ORDERED: CLARITHROMYCIN 500 MG TABLET PO SCH (21:00)
[2023-11-16] MEDS: MORPHINE 4 MG/ML SYR IV PRN (21:27)
[2023-11-17 00:54] LABS: Urine Bacteria None Seen /HPF (<20); Urine Bilirubin NEGATIVE (Negative); Urine Blood Negative (Negative); Urine Clarity Clear (Clear); Urine Color Light-Yellow (Yellow); Urine Crystals Unidentified Few /HPF (None Seen); Urine Glucose NEGATIVE (Negative); Urine Protein NEGATIVE (Negative); Urine RBC <5 /HPF (None Seen); Urine Urobilinogen Normal (Normal); Urine pH 6.5 (5.0-7.0)
[2023-11-17] MEDS: PANTOPRAZOLE INJ 80 MG in NA CHLORIDE 0.9% 250 ML IV SCH ×3 (01:38→20:09)
[2023-11-17 01:48] LABS: Urine Protein/Creatinine Ratio 0.08 ratio (<0.15)
[2023-11-17 02:11] LABS: UR MICROALBUMIN < 0.5 mg/dL (< 1.9); UR PROTEIN 5.6 mg/dL (<11.9)
[2023-11-17 03:06] LABS: Absolute Lymphocytes (CBC) 3.1 K/uL (0.7-4.9); Hematocrit 31.3 % (36.0-45.0); Lymphocytes % 42.7 % (15.3-44.8); MCV 81.8 fL (80-100); MPV 8.7 fL (7.6-11.3); Platelets 302 thou/uL (152-406); RBC Red Blood Cell Count 3.82 M/uL (3.86-4.86)
[2023-11-17 03:25] LABS: Bilirubin Total 0.3 mg/dL (0.2-1.0); Magnesium 1.7 mg/dL (1.6-2.4); Potassium 3.9 mEq/L (3.5-5.1); Protein, Total 6.7 g/dL (6.4-8.2)
[2023-11-17] MEDS: NACHLORIDE 0.45% 1,000 ML IV SCH ×2 (04:04→18:19)
[2023-11-17] MEDS ORDERED: MAGNESIUM SULFATE 1 gm IVPB 1 GM/100 ML BAG IV ONE (05:00)
[2023-11-17] MEDS ORDERED: KCL 20 MEQ/100 mL IVPB 20 MEQ/100 ML BAG IV SCH (07:00)
[2023-11-17] MEDS: AMOXICILLIN TRIHYDR 250 MG CAP PO SCH ×2 (09:22→20:10)
[2023-11-17] MEDS: CLARITHROMYCIN 500 MG TABLET PO SCH ×2 (09:23→20:10)
[2023-11-17] MEDS ORDERED: PANTOPRAZOLE 40 MG INJ ONE (09:25)
[2023-11-17] MEDS: SOD FERRIC GLUC COMPLX/SUCROSE 250 MG in NA CHLORIDE 0.9% 250 ML IV SCH (10:00)
--- NOTE | 2023-11-17 13:08 | P.PN ---
Date of Service: 11/17/23 Subjective: Doing okay pain improving slowly trial of clear liquids for lunch afebrile ROS: 10 point ROS as noted above, otherwise negative Physical exam GEN: Alert, oriented, NAD HEENT: Normal conjunctiva, sclera anicteric CV: Regular rate and rhythm, no edema Pulm: Nonlabored respirations on room air ABD: Soft, tender to palpation in epigastrium Neuro: Normal speech, normal affect Vitals reviewed Assessment: epigastric pain, duodenal ulcer SHANA on CKD 3 Iron deficiency anemia Hypertension Hyperlipidemia epigastric pain, duodenal ulcer CTA done - negative for arterial issue lipase minimally elevated on admission. ED reported suspicion for pancreatitis Patient's symptomatology not classic for pancreatitis not much risk factors Broadened the differential and further workup done General surgery, Dr. Riley consulted EGD (11/16): Large duodenal ulcer causing some degree of obstruction continue Protonix drip, switched from IV protonix BID 11/16 empirically treat for h pylori. Continue clarithomycin / amoxicillin (11/16-) per Dr. Riley, f/u with biopsies Dr. Riley recommended clear liquids for now. possible full liquids tomorrow and maybe home Sunday, possibly tomorrow if doing very well PRN pain meds, antiemetics lipase normal; not pancreatitis SHANA on CKD 3 Continue gentle hydration, monitor chemistry daily renal function improved Nephrology consulted Iron deficiency anemia iron studies consistent with iron deficiency anemia. iron: 46. transferrrin %: 18% IV iron started per nephro. Monitor H&H. Hypertension Hyperlipidemia Review home medications, restart as appropriate. Code: full Dispo: 24-48 hours Time Spent Managing Pts Care (In Minutes): 35
[2023-11-17] MEDS: MORPHINE 4 MG/ML SYR IV PRN ×2 (13:17→18:21)
[2023-11-17] MEDS: ONDANSETRON 4 MG/2 ML VIAL IV PRN (18:21)
[2023-11-18] MEDS: MORPHINE 4 MG/ML SYR IV PRN ×2 (02:12→20:25)
[2023-11-18 03:04] LABS: Hematocrit 31.9 % (36.0-45.0); MCV 81.2 fL (80-100); MPV 8.9 fL (7.6-11.3); Platelets 320 thou/uL (152-406); RBC Red Blood Cell Count 3.93 M/uL (3.86-4.86)
[2023-11-18 03:23] LABS: Magnesium 1.9 mg/dL (1.6-2.4); Potassium 4.1 mEq/L (3.5-5.1)
[2023-11-18] MEDS: PANTOPRAZOLE INJ 80 MG in NA CHLORIDE 0.9% 250 ML IV SCH ×2 (05:13→15:51)
[2023-11-18] MEDS: NACHLORIDE 0.45% 1,000 ML IV SCH ×3 (05:13→20:00)
[2023-11-18] MEDS: SOD FERRIC GLUC COMPLX/SUCROSE 250 MG in NA CHLORIDE 0.9% 250 ML IV SCH (08:43)
[2023-11-18] MEDS: CLARITHROMYCIN 500 MG TABLET PO SCH ×2 (08:43→20:18)
[2023-11-18] MEDS: AMOXICILLIN TRIHYDR 250 MG CAP PO SCH ×2 (08:44→20:18)
--- NOTE | 2023-11-18 10:14 | PN ---
Subjective: The patient is seen in room 230 at [facility]. The patient is a lert, awake, comfortable. She is sitting up, having some clear liquid diet with some Jell-O. Denies any pain currently. She is feeling somewhat better. States that she has had some abdominal discomf ort. She was in the hospital with a possibility of pancreatitis. Has been getting some IV fluids at about 100 cc an hour while she is not able to take full nutrition. Her creatinine seems to be stabl e. Renal function seems to be stable from that point of view with last creatinine about 1.27. Objective: Vital Signs: The patient's vitals are relatively stable with blood pressure 138/67, befo re that 111/57; respirations around 14 to 16 and stable; and O2 sats are 96% on room air. Pulse rate is about 60 and regular. The patient is afebrile. Lungs: Clear to auscultation. Abdomen: Soft. Extremities: Reveal no edema. No guarding or rebound on evaluation today. The patient is currently sitting up in bed and taking in some Jell-O and drinking some liquids. Laboratory Data: Reviewed. Labs from today show WBC count of 7.4, hemoglobin and hematocrit of 10.5 and 31.9, and platelet count of 320. Chemistry shows sodium 140, potassium 4.1, chloride 113, bicar b is 23, BUN is 11, and creatinine is 1.27, relatively stable compared to 15 of November when the c reatinine was 1.26 and yesterday, the creatinine was 1.18. Assessment And Plan: The patient with no dyspnea, no chest pain, looking comfortable. Denies any pa in. Able to take some p.o. intake with clear liquids. With acute kidney injury, currently question of chronic kidney disease stage IIIA/B. At this point, on gentle IV fluids. Continue the same. Mon itor with p.o. intake. As the patient tolerates p.o. intake, IV fluids can be discontinued. No alco hol intake. Recommended avoiding smoking. The patient seems to understand. /TAMMY Voice ID: [id number] Report ID: [id number]
--- NOTE | 2023-11-18 11:43 | P.PN ---
Subjective Date of Service: 11/18/23 Primary Care Provider: Radha Thompson NP Chief Complaint: Acute pancreatitis Subjective: Improving (Patient tolerated liquids without issues, no pain, no nausea, emesis.) Physical Examination - Vital Signs Temperature: 98.7 F Blood Pressure: 138/67 Pulse: 60 Respirations: 16 Pulse Ox (%): 96 - Physical Exam General: Alert, In no apparent distress, Cooperative Gastrointestinal: Soft and benign, Non-distended, No tenderness, No masses, No rebound, No guarding Assessment And Plan - Current Problems (Diagnosis) (1) Duodenal ulcer disease Current Visit: Yes Status: Acute Plan: Patient is a 63 year old woman who presents with a gastric outlet obstructive symptoms, she was taken for EGD which showed a large, duodenal bulb ulcer with cavitation - Advance diet to full liquid, supplement with protein shakes 3-5 per day - continue acid suppression - treat for possible H.Pylori infection - biopsies are currently pending - follow up in EGD Biopsies - Serial exams - serial labs - continue medical management per primary team and datapower developer Physician Review: Patient Assessed, Agree with Above Assessment and Plan
--- NOTE | 2023-11-18 13:23 | P.PN ---
Subjective Date of Service: 11/18/23 Primary Care Provider: Radha Thompson NP Chief Complaint: Ulcer disease Subjective: Improving (He is doing much better pain has improved gastric ulcer I suspect is from the nonsteroidals) Review of Systems Unremarkable Physical Examination - Vital Signs Temperature: 98.3 F Blood Pressure: 115/63 Pulse: 68 Respirations: 14 Pulse Ox (%): 97 - Physical Exam General: Alert, In no apparent distress, Oriented x3 Respiratory: Clear to auscultation bilaterally Cardiovascular: No edema, Regular rate/rhythm Gastrointestinal: Normal bowel sounds, Soft and benign Assessment And Plan - Current Problems (Diagnosis) (1) Duodenal ulcer disease Current Visit: Yes Status: Acute Plan: 63 years of age admitted with peptic ulcer disease is clinically improving I suspect it was from the use of diclofenac which she was prescribed as an outpatient in that for 2 weeks General surgery to advance her diet possible discharge tomorrow if stable renal function is slightly abnormal being treated with iron for iron deficiency anemia with IV fluids seen by nephrology function is better since admission Physician Review: Patient Assessed, Agree with Above Assessment and Plan
[2023-11-19] MEDS: PANTOPRAZOLE INJ 80 MG in NA CHLORIDE 0.9% 250 ML IV SCH ×3 (01:19→23:36)
[2023-11-19] MEDS: NACHLORIDE 0.45% 1,000 ML IV SCH ×2 (03:30→23:35)
[2023-11-19] MEDS: AMOXICILLIN TRIHYDR 250 MG CAP PO SCH ×2 (08:09→19:57)
[2023-11-19] MEDS: MORPHINE 4 MG/ML SYR IV PRN ×2 (08:09→18:18)
[2023-11-19] MEDS: CLARITHROMYCIN 500 MG TABLET PO SCH ×2 (08:09→19:57)
[2023-11-19 08:47] LABS: Protime INR 1.3
[2023-11-19] MEDS: SOD FERRIC GLUC COMPLX/SUCROSE 250 MG in NA CHLORIDE 0.9% 250 ML IV SCH (09:00)
[2023-11-19 10:56] LABS: Hematocrit 32.5 % (36.0-45.0); MCV 81.1 fL (80-100); MPV 8.8 fL (7.6-11.3); Platelets 306 thou/uL (152-406)
--- NOTE | 2023-11-19 11:02 | RAD REPORT ---
EXAM DESCRIPTION: RAD - Abdomen W Erect - 11/19/2023 8:57 am CLINICAL HISTORY: severe abominal pain COMPARISON: No comparisons TECHNIQUE: Single AP view of the abdomen. FINDINGS: Nonobstructive bowel gas pattern. No air-fluid levels, free air, or pneumatosis. Mild stoo l burden throughout the colon. No suspicious calcifications. No significant bony abnormality. IMPRESSION: Nonobstructive bowel gas pattern. Mild stool burden throughout the colon.
[2023-11-19 11:39] VITALS: O2SAT 100
[2023-11-19] MEDS ORDERED: POLYETHYL GLY 3350 17 GM/DOSE PO PRN (12:53)
[2023-11-19] MEDS ORDERED: DOCUSATE NA/SENNA CONC 1 TAB PO PRN (12:53)
--- NOTE | 2023-11-19 13:06 | P.PN ---
Date of Service: 11/19/23 Subjective: Abdomen more painful this morning. Otherwise, doing well, ambulating independently, will make NPO Abdominal xray showing "Nonobstructive bowel gas pattern. Mild stool burden throughout the colon." Will start a bowel regimen. ROS: 10 point ROS as noted above, otherwise negative Physical exam GEN: Alert, oriented, NAD HEENT: Normal conjunctiva, sclera anicteric CV: Regular rate and rhythm, no edema Pulm: Nonlabored respirations on room air ABD: Soft, tender to palpation in epigastrium Neuro: Normal speech, normal affect Vitals reviewed Assessment: epigastric pain, duodenal ulcer SHANA on CKD 3 Iron deficiency anemia Hypertension Hyperlipidemia epigastric pain, duodenal ulcer CTA done - negative for arterial issue lipase minimally elevated on admission. ED reported suspicion for pancreatitis Patient's symptomatology not classic for pancreatitis not much risk factors Broadened the differential and further workup done General surgery, Dr. Riley consulted EGD (11/16): Large duodenal ulcer causing some degree of obstruction continue Protonix drip, switched from IV protonix BID 11/16 empirically treat for h pylori. Continue clarithomycin / amoxicillin (11/16-) per Dr. Riley, f/u with biopsies Dr. Riley recommended clear liquids for now. possible full liquids tomorrow and maybe home Sunday, possibly tomorrow if doing very well PRN pain meds, antiemetics lipase normal; not pancreatitis Abdominal xray showing "Nonobstructive bowel gas pattern. Mild stool burden throughout the colon." Will start a bowel regimen. SHANA on CKD 3 Continue gentle hydration, monitor chemistry daily renal function improved Nephrology consulted Iron deficiency anemia iron studies consistent with iron deficiency anemia. iron: 46. transferrrin %: 18% IV iron started per nephro. Monitor H&H. Hypertension Hyperlipidemia Review home medications, restart as appropriate. Code: full Dispo: 24-48 hours Time Spent Managing Pts Care (In Minutes): 35
[2023-11-19] MEDS ORDERED: LACTULOSE 20 GM/30 ML UCUP PO ONE (13:30)
--- NOTE | 2023-11-19 17:50 | PN ---
Date of Progress Note: 11/19/2023 Subjective: Patient was seen and examined at bedside. She is doing okay. Objective: Vital Signs: Reviewed and are stable. She remains NPO. General: She appears in no acute distress. Lungs: Clear. Abdomen: Soft. Extremities: Showed no evidence of edema. Laboratory Data: At this time is showing creatinine of 1.35, BUN of 7 and other electrolytes are sta ble. The CBC results are showing stable hemoglobin, hematocrit, and platelet count. Impression: 1.Acute renal failure secondary to dehydration, currently with improved renal function. Followup cl osely. Continue IV fluids. 2.Epigastric pain secondary to duodenal ulcer and pancreatitis with gastric outlet obstruction. Pat ient is being managed remotely by General Surgery as well as Gastroenterology. 3.Iron deficiency anemia, currently stable. 4.Hypertension, currently stable. Plan: Overall, patient's renal function is stable; however, she remains NPO and is unable to tolerat e p.o. intake at this time. I will continue IV fluids and monitor renal function. VV/MODDavon Voice ID: [id number] Report ID: [id number]
--- NOTE | 2023-11-19 18:07 | P.PN ---
Subjective Date of Service: 11/19/23 Primary Care Provider: Radha Thompson NP Chief Complaint: Ulcer disease Patient had episode of intermittent pain with PO intake, she was not compliant with diet recommendations, she ate solid carrots. Physical Examination - Vital Signs Temperature: 97.6 F Blood Pressure: 137/67 Pulse: 66 Respirations: 14 Pulse Ox (%): 97 - Physical Exam General: Alert, In no apparent distress, Cooperative Respiratory: Normal air movement Gastrointestinal: Other (soft, mild epigastric and RUQ TTP, ND, no rebound, no guarding, no peritoneal signs.) Assessment And Plan - Current Problems (Diagnosis) (1) Duodenal ulcer disease Current Visit: Yes Status: Acute Plan: Patient is a 63 year old woman who presents with a gastric outlet obstructive symptoms, she was taken for EGD which showed a large, duodenal bulb ulcer with cavitation - hold diet currently due to increased pain, return to NPO - continue acid suppression - treat for possible H.Pylori infection - biopsies are currently pending - follow up in EGD Biopsies - Serial exams - serial labs - continue medical management per primary team and business operations manager Physician Review: Patient Assessed, Agree with Above Assessment and Plan
[2023-11-19] MEDS: ONDANSETRON 4 MG/2 ML VIAL IV PRN (18:23)
[2023-11-20] MEDS: NACHLORIDE 0.45% 1,000 ML IV SCH ×3 (01:22→11:36)
[2023-11-20 03:58] LABS: Albumin 2.9 g/dL (3.4-5.0); Bilirubin Direct 0.2 mg/dL (0-0.2); Bilirubin Indirect, Calculated 0.2 mg/dL (0.2-0.8); Bilirubin Total 0.4 mg/dL (0.2-1.0); Protein, Total 6.6 g/dL (6.4-8.2)
[2023-11-20 08:10] LABS: Magnesium 1.7 mg/dL (1.6-2.4); Potassium 3.8 mEq/L (3.5-5.1)
[2023-11-20] MEDS: PANTOPRAZOLE INJ 80 MG in NA CHLORIDE 0.9% 250 ML IV SCH ×2 (08:51→17:26)
[2023-11-20] MEDS: CLARITHROMYCIN 500 MG TABLET PO SCH ×2 (08:52→20:31)
[2023-11-20] MEDS ORDERED: MAGNESIUM SULFATE 1 gm IVPB 1 GM/100 ML BAG IV ONE (10:30)
[2023-11-20] MEDS: AMOXICILLIN TRIHYDR 250 MG CAP PO SCH ×2 (10:33→20:31)
[2023-11-20] MEDS: ONDANSETRON 4 MG/2 ML VIAL IV PRN (10:36)
[2023-11-20] MEDS: SUCRALFATE 1GM/10ML UCUP FT SCH ×3 (11:34→20:31)
--- NOTE | 2023-11-20 11:34 | P.PN ---
Nephrology (S) Abd pain stable, some nausea with PO meds, remains NPO and on IVF (O) Vitals, medications, blood work and imaging reviewed in the chart. General: In no apparent distress, Oriented x3, Cooperative HEENT: Atraumatic, sclera anicteric Neck: Supple Respiratory: Clear to auscultation bilaterally Cardiovascular: RRR mostly Gastrointestinal: Soft, ND, mild guarding Musculoskeletal: No edema, shins non tender Integumentary: No rashes Neurological: Awake, alert, non focal Imagings Data: darrenrice EXAM DESCRIPTION: Abdomen Pelvis Wo Contrast CLINICAL HISTORY: ABD PAIN, VOMITING TECHNIQUE: Contiguous axial images obtained through the abdomen and pelvis without IV contrast. Sagittal and coronal reformatted images were provided. This exam was performed according to our departmental dose-optimization program, which includes automated exposure control, adjustment of the mA and/or kV according to patient size and/or use of iterative reconstruction technique. COMPARISON: None available for comparison. FINDINGS: Lung bases: Clear Liver: Unremarkable Gallbladder and biliary system: Unremarkable Pancreas: There is mild stranding adjacent to the tail of the pancreas extending to the left anterior pararenal space. This may reflect mild acute pancreatitis. Clinical correlation recommended. There are no organized peripancreatic fluid collections. Pancreatitis at the tail of the pancreas has been associated to occult mass in the body or head of the pancreas. Recommend further evaluation with follow-up contrast-enhanced CT or MRI of the pancreas. Spleen: Unremarkable Adrenals: Unremarkable Kidneys: No calculi. No hydronephrosis. Gl: No obstruction. No appreciable mucosal thickening. Appendix: No findings to suggest acute appendicitis. Urinary bladder: Unremarkable Reproductive: Unremarkable as visualized Lymph nodes: No pathologically enlarged lymph nodes. Peritoneum: No focal fluid collection. No free air. Vessels: No abdominal aortic aneurysm. Abdominal wall: Unremarkable Bones: UnremarkableNo acute bony pathology IMPRESSION: Mild stranding adjacent to the tail of the pancreas extending to the left anterior pararenal space. This may reflect mild acute pancreatitis. There are no organized peripancreatic fluid collections. Pancreatitis at the tail of the pancreas has been associated to occult mass in the body or head of the pancreas. Recommend further evaluation with follow-up contrast-enhanced CT or MRI of the pancreas. Conclusions/Impression: Stage I SHANA in the setting of hypovolemia complicated by diclofenac and lisinopril CKD NOS potentially underlying -Cont gentle IVF hydration while NPO, Cr level stable -Urine studies on repeat and spot urine not too remarkable. -Pt counseled to avoid all NSAIDs -Replete lytes as needed Essential HTN -Trend BP off meds/ACEi currently Brian Zavala MD, MAGDA
--- NOTE | 2023-11-20 16:43 | P.PN ---
Date of Service: 11/20/23 Subjective: Trial CLD after carafate, will monitor and advance to FLD if she does well. She is AAOx3, ambulating independently, and on RA ROS: 10 point ROS as noted above, otherwise negative Physical exam GEN: Alert, oriented, NAD HEENT: Normal conjunctiva, sclera anicteric CV: Regular rate and rhythm, no edema Pulm: Nonlabored respirations on room air ABD: Soft, tender to palpation in epigastrium Neuro: Normal speech, normal affect Vitals reviewed Assessment: epigastric pain, duodenal ulcer SHANA on CKD 3 Iron deficiency anemia Hypertension Hyperlipidemia epigastric pain, duodenal ulcer CTA done - negative for arterial issue lipase minimally elevated on admission. ED reported suspicion for pancreatitis Patient's symptomatology not classic for pancreatitis not much risk factors Broadened the differential and further workup done General surgery, Dr. Riley consulted EGD (11/16): Large duodenal ulcer causing some degree of obstruction continue Protonix drip, switched from IV protonix BID 11/16 empirically treat for h pylori. Continue clarithomycin / amoxicillin (11/16-) per Dr. Riley, f/u with biopsies Dr. Riley recommended clear liquids for now. possible full liquids tomorrow and maybe home Sunday, possibly tomorrow if doing very well PRN pain meds, antiemetics lipase normal; not pancreatitis Abdominal xray showing "Nonobstructive bowel gas pattern. Mild stool burden throughout the colon." Will start a bowel regimen. Trial CLD and carafate SHANA on CKD 3 Continue gentle hydration, monitor chemistry daily renal function improved Nephrology consulted Iron deficiency anemia iron studies consistent with iron deficiency anemia. iron: 46. transferrrin %: 18% IV iron started per nephro. Monitor H&H. Hypertension Hyperlipidemia Review home medications, restart as appropriate. Code: full Dispo: 24-48 hours Time Spent Managing Pts Care (In Minutes): 35 <Faiza Mohan - Last Filed: 11/20/23 16:41> Patient seen and examined with Ms. Mohan Large duodenal ulcer. Case discussed with surgery Dr. Riley Trial of sucralfate and advance diet to full liquid as tolerated. <edson cole - Last Filed: 11/24/23 15:29>
[2023-11-21] MEDS: NACHLORIDE 0.45% 1,000 ML IV SCH (00:50)
[2023-11-21 08:27] LABS: Potassium 3.9 mEq/L (3.5-5.1)
[2023-11-21] MEDS: SUCRALFATE 1GM/10ML UCUP FT SCH ×2 (08:53→12:30)
[2023-11-21] MEDS: CLARITHROMYCIN 500 MG TABLET PO SCH (08:54)
[2023-11-21] MEDS: AMOXICILLIN TRIHYDR 250 MG CAP PO SCH (08:54)
[2023-11-21] MEDS ORDERED: NACHLORIDE 0.45% 1,000 ML IV SCH (11:51)
--- NOTE | 2023-11-21 11:51 | P.PN ---
Nephrology (S) No sig abd pain reported, no current N/V, remains on IVF, pt reports freq urination (O) Vitals, medications, blood work and imaging reviewed in the chart. General: In no apparent distress, Oriented x3, Cooperative HEENT: Atraumatic, sclera anicteric Neck: Supple Respiratory: Clear to auscultation bilaterally Cardiovascular: RRR mostly Gastrointestinal: Soft, ND, mild guarding Musculoskeletal: No edema, shins non tender Integumentary: No rashes Neurological: Awake, alert, non focal Imagings Data: darrenrice EXAM DESCRIPTION: Abdomen Pelvis Wo Contrast CLINICAL HISTORY: ABD PAIN, VOMITING TECHNIQUE: Contiguous axial images obtained through the abdomen and pelvis without IV contrast. Sagittal and coronal reformatted images were provided. This exam was performed according to our departmental dose-optimization program, which includes automated exposure control, adjustment of the mA and/or kV according to patient size and/or use of iterative reconstruction technique. COMPARISON: None available for comparison. FINDINGS: Lung bases: Clear Liver: Unremarkable Gallbladder and biliary system: Unremarkable Pancreas: There is mild stranding adjacent to the tail of the pancreas extending to the left anterior pararenal space. This may reflect mild acute pancreatitis. Clinical correlation recommended. There are no organized peripancreatic fluid collections. Pancreatitis at the tail of the pancreas has been associated to occult mass in the body or head of the pancreas. Recommend further evaluation with follow-up contrast-enhanced CT or MRI of the pancreas. Spleen: Unremarkable Adrenals: Unremarkable Kidneys: No calculi. No hydronephrosis. Gl: No obstruction. No appreciable mucosal thickening. Appendix: No findings to suggest acute appendicitis. Urinary bladder: Unremarkable Reproductive: Unremarkable as visualized Lymph nodes: No pathologically enlarged lymph nodes. Peritoneum: No focal fluid collection. No free air. Vessels: No abdominal aortic aneurysm. Abdominal wall: Unremarkable Bones: UnremarkableNo acute bony pathology IMPRESSION: Mild stranding adjacent to the tail of the pancreas extending to the left anterior pararenal space. This may reflect mild acute pancreatitis. There are no organized peripancreatic fluid collections. Pancreatitis at the tail of the pancreas has been associated to occult mass in the body or head of the pancreas. Recommend further evaluation with follow-up contrast-enhanced CT or MRI of the pancreas. Conclusions/Impression: Stage I SHANA in the setting of hypovolemia complicated by diclofenac and lisinopril CKD NOS potentially underlying, will hold off CKD classification until we have a better trend as OP -Cont gentle IVF hydration while NPO, Cr level stable -Urine studies on repeat and spot urine not too remarkable. -Pt counseled to avoid all NSAIDs -Replete lytes as needed Essential HTN -Trend BP off meds/ACEi currently Freq of micturition -Pt reports chronic issue, no sig PVR, may have overactive bladder component, can try a trial of anti spasmodics as OP Brian Zavala MD, MAGDA
[2023-11-21] MEDS: PANTOPRAZOLE INJ 80 MG in NA CHLORIDE 0.9% 250 ML IV SCH (12:30)
[2023-11-21 12:35] VITALS: TEMP 97.8
--- NOTE | 2023-11-21 14:16 | P.DS ---
Admission Date: 11/14/23 Discharge Date: 11/21/23 Primary Care Provider: Radha Thompson NP Disposition: ROUTINE DISCHARGE Discharge Condition: GOOD Reason for Admission: Ulcer disease Brief History of Present Illness: Diagnosis: epigastric pain, duodenal ulcer SHANA on CKD 3 Iron deficiency anemia Hypertension Hyperlipidemia Hospital Course: Magda Patino is a pleasant 63 year old female with a past medical history significant for CKD 3, hypertension, hyperlipidemia who was admitted to the [facility] on 11/14/23 for Acute pancreatitis and Duodenal ulcer . Magda was admitted with epigastric pain, Dr. Riley to perform an EGD and found a large duodenal ulcer. Biopsies are pending for H. pylori. She was started on antibiotic course for H. pylori prophylactically and IV Protonix drip. She has tolerated all treatments well. Eating has been difficult but has improved with the use of Carafate with meals. She is anemia has been stable this admission, tolerating full liquid diet, ambulating independently, hemodynamically stable, and ready for discharge. She will need to continue full liquid diet for 1 week prior to seeing Dr. Riley in his office. On 11/21/2023, Donna was seen on morning rounds and deemed medically stable for discharge. Donna was discharged with instructions to schedule follow-up appointments with PCP and Dr. Riley. Donna was provided prescriptions for omeprazole and Carafate, holding antibiotics until biopsy results. The patient and family members were given the opportunity to ask questions and reported no further questions. Furthermore, all questions were answered to the best of my ability. A copy of this discharge summary will be sent to the above providers to facilitate continuity of care. Today, I personally spent 55 minutes with Donna, of which greater than 50% of the time was spent in patient education, counseling, and coordination of care as described above. Vital Signs/Physical Exam: Temp Pulse Resp BP Pulse Ox 97.8 F 61 14 137/62 99 11/21/23 12:00 11/21/23 12:00 11/21/23 12:00 11/21/23 12:00 11/21/23 12:00 Laboratory Data at Discharge: WBC 5.30 thou/uL (4.3-10.9) 11/19/23 10:05 Hgb 10.7 g/dL (12.0-15.0) L 11/19/23 10:05 Hct 32.5 % (36.0-45.0) L 11/19/23 10:05 Plt Count 306 thou/uL (152-406) 11/19/23 10:05 PT 14.2 SECONDS (9.5-12.5) H 11/19/23 08:33 INR 1.30 11/19/23 08:33 APTT 40.1 SECONDS (24.3-36.9) H 11/19/23 08:33 Sodium 139 mEq/L (136-145) 11/21/23 07:56 Potassium 3.9 mEq/L (3.5-5.1) 11/21/23 07:56 BUN 9 mg/dL (7-18) 11/21/23 07:56 Creatinine 1.40 mg/dL (0.55-1.02) H 11/21/23 07:56 Glucose 94 mg/dL (74-106) 11/21/23 07:56 Uric Acid 5.5 mg/dL (2.6-6.0) 11/16/23 02:42 Phosphorus 2.7 mg/dL (2.5-4.9) 11/16/23 02:42 Magnesium 1.7 mg/dL (1.6-2.4) 11/20/23 07:40 Total Bilirubin 0.4 mg/dL (0.2-1.0) 11/20/23 03:06 AST 14 U/L (15-37) L 11/20/23 03:06 ALT 18 U/L (13-56) 11/20/23 03:06 Alkaline Phosphatase 87 U/L (45-117) 11/20/23 03:06 Triglycerides 74 mg/dL (<150) 11/14/23 09:41 Cholesterol 122 mg/dL (<200) 11/14/23 09:41 HDL Cholesterol 42 mg/dL (40-60) 11/14/23 09:41 Cholesterol/HDL Ratio 2.90 11/14/23 09:41 Lipase 26 U/L (13-75) 11/17/23 02:40 Home Medications: Atorvastatin Calcium 20 mg PO DAILY 11/14/23 Carvedilol [Coreg] 1 tab PO BID 11/14/23 Citalopram Hydrobromide [Celexa] 20 mg PO DAILY 11/14/23 Diclofenac Sodium [Voltaren] 75 mg PO BID 11/14/23 Lisinopril [Zestril] 40 mg PO DAILY 11/14/23 Omeprazole [Prilosec] 40 mg PO BID 14 Days #28 cap 11/21/23 Sucralfate [Carafate*] 10 ml PO ACHS 7 Days #280 ml 11/21/23 New Medications: Sucralfate [Carafate*] 10 ml PO ACHS 7 Days #280 ml Omeprazole [Prilosec] 40 mg PO BID 14 Days #28 cap Physician Discharge Instructions: Physical exam GEN: Alert, oriented, NAD HEENT: Normal conjunctiva, sclera anicteric CV: Regular rate and rhythm, no edema Pulm: Nonlabored respirations on room air ABD: Soft, tender to palpation in epigastrium Neuro: Normal speech, normal affect 1. Please call and schedule a follow-up appointment with your PCP in 3-5 days - Please follow-up with your PCP for medication refills/adjustments 2. Please call and schedule a follow-up appointment with Rosemary in one week 3. continue Full liquid diet for one week 4. No activity restriction 5. Holding antibiotics until biopsies result 6. If symptoms worsen return to the ED New medications Omeprazole twice a day carafate with meals Diet: Renal Activity: Ad sofia Followup: Quan Riley MD [ACTIVE - CAN ADMIT] - NONE,NONE [Primary Care Provider] - Time spent managing pt's care (in minutes): 55
[2023-11-21 16:21] VITALS: BP 128/76
== END 2023-11-21 16:20 | disposition home or self-care (01) | DRG 384 ==
LOC: ER 04:39 → ERHOLD 07:30 → 2ND 14:47
PROVIDERS: ADMIT Hospitalist; ATTEND Internal Medicine
DX: K26.3 Acute duodenal ulcer without hemorrhage or perforation (principal); N17.9 Acute kidney failure, unspecified; K31.1 Adult hypertrophic pyloric stenosis; K29.50 Unspecified chronic gastritis without bleeding; D50.9 Iron deficiency anemia, unspecified; I12.9 Hypertensive chronic kidney disease with stage 1 through stage 4 chronic kidney disease, or unspecified chronic kidney disease; N18.32 Chronic kidney disease, stage 3b; E78.5 Hyperlipidemia, unspecified
CPT/HCPCS: 36415; 72191; 74019; 74175; 74176; 76705; 80048; 80053; 80061; 80076; 81001; 82043; 82570; 82728; 83540; 83605; 83690; 83735; 84100; 84132; 84156; 84466; 84550; 85025; 85027; 85610; 85730; 86038; 86160; 86706; 86803; 87086; 87088; 87340; 88304; 88305; 88312; 96374; 96375; 99285; C9113; J1650; J2001; J2405; J2704; J2765; J2916; J3475; J3480; J7030; J7050; J7120; Q9967

== ENCOUNTER 2024-05-23 08:50 | Day surgery (SDC) | payer OTHER ==
[2024-05-23 08:57] LABS: Absolute Eosinophils 0.3 K/uL (0-0.5); Absolute Lymphocytes (CBC) 2.4 K/uL (0.7-4.9); Absolute Monocytes 0.5 K/uL (0.1-1.3); Absolute Neutrophil 3.5 K/uL (1.8-8.0); Basophils % 0.6 % (0-1.3); Eosinophils % 4.5 % (0-4.4); Hematocrit 41.4 % (36.0-45.0); Hemoglobin 13.7 g/dL (12.0-15.0); Lymphocytes % 35.5 % (15.3-44.8); MCH 27.2 pg (27.0-35.0); MCV 82.3 fL (80-100); MPV 8.1 fL (7.6-11.3); Monocytes % 7.1 % (3.3-12.3); Neutrophils % 52.3 % (41.7-73.7); Nucleated Red Blood Cells % 0.2 % (0-0); Platelets 266 thou/uL (152-406); RBC Red Blood Cell Count 5.03 M/uL (3.86-4.86); Red Cell Distribution Width 15.4 % (12.1-15.2)
[2024-05-23 09:16] LABS: Anion Gap 7.9 mEq/L (5.0-15.0); Potassium 3.9 mEq/L (3.5-5.1)
[2024-05-23] MEDS: Ringers Lactate 1,000 ML IV ONE (09:35)
[2024-05-23] MEDS ORDERED: propofoL 200 MG/20 ML VIAL IV ONE ×2 (10:53→10:54)
[2024-05-23] MEDS ORDERED: LIDOCAINE 1% MPF 5 ML VIAL ONE (10:54)
[2024-05-23 13:32] VITALS: BP 119/61; TEMP 97; O2SAT 100
--- NOTE | 2024-05-24 14:07 | EKG ---
Test Date: 2024-05-23 Test Time: 08:38:42 Plumber: PREO MEASUREMENT RESULTS: Intervals: Rate: 56 IL: 180 QRSD: 92 QT: 430 QTc: 414 [place]: P: 70 IL: 180 QRS: 55 T: 40 INTERPRETIVE STATEMENTS: Sinus bradycardia Septal infarct, age undetermined Abnormal ECG Compared to ECG 04/09/2017 02:09:39 Myocardial infarct finding now present Sinus rhythm no longer present Left ventricular hypertrophy no longer present T-wave abnormality no longer present Electronically Signed On 05-24-24 14:05:37 CDT by Levon Goldberg
== END 2024-05-23 13:05 | disposition home or self-care (01) ==
LOC: OR 08:50
PROVIDERS: ATTEND Surgery
PROC: 0DB18ZX Excision of Upper Esophagus, Via Natural or Artificial Opening Endoscopic, Diagnostic (ICD-10-PCS; 2024-05-23)
PROC: 0DB48ZX Excision of Esophagogastric Junction, Via Natural or Artificial Opening Endoscopic, Diagnostic (ICD-10-PCS; 2024-05-23)
PROC: 0DBN8ZX Excision of Sigmoid Colon, Via Natural or Artificial Opening Endoscopic, Diagnostic (ICD-10-PCS; 2024-05-23)
PROC: 0DB98ZX Excision of Duodenum, Via Natural or Artificial Opening Endoscopic, Diagnostic (ICD-10-PCS; principal; 2024-05-23 09:45)
PROC: 0DB68ZX Excision of Stomach, Via Natural or Artificial Opening Endoscopic, Diagnostic (ICD-10-PCS; 2024-05-23 09:45)
DX: Z12.11 Encounter for screening for malignant neoplasm of colon (principal); K29.40 Chronic atrophic gastritis without bleeding; K29.80 Duodenitis without bleeding; K21.00 Gastro-esophageal reflux disease with esophagitis, without bleeding; K64.8 Other hemorrhoids; K57.30 Diverticulosis of large intestine without perforation or abscess without bleeding
CPT/HCPCS: 93005; 85025; 80048; 36415; 88312; 88305; 43239; 45380; J2704 ×2; J2001; J7120

== ENCOUNTER 2025-09-07 07:36 | Emergency (ER) | payer OTHER ==
--- OUTSIDE RECORDS SUMMARY | 2025-09-07 07:54 | XMS REPORT | Continuity of Care Document ---
Author Name Unknown Address [address] [facility] [id number] Organization [facility] [place] Address [address] [facility] [address] [id number] Care Team Providers Care Marketing Lead Name Role Phone Jacqueline Falcon Primary Care Physician [phone] KELTON PIERRE Attending Clinician Unavailable LAINA GUDINO Attending Clinician SUKI Melissa Attending Clinician UnavailKelton Bethea DO Attending Clinician [phone] LAB90 Attending Clinician Unavailable Laina Gudino MD Attending Clinician [phone] JE SANABRIA Attending Clinician Unavailable Payers Payer Name Policy Type Policy Number Effective Date Expirati on Date Source [facility] DUAL COMPLETE [place]-D01[place] HMO-POS D-SNP 5 [id number] 2025 00:00[facility] [id number] 2025 00:00:00 AGUSTO MA DUAL 2 [id number] 2024 00:00:00 AEGERMAN WILLSON DUAL COMPLETE CAP(HMO D-SNP OA) 7 [id number] 2023 00:00:00 Problems Condition Name Condition Details Condition Category Status Onset Date Resolution Date Last Treatment Date Treating Clinician Comments Source Gastroesop hageal reflux disease without esophagiti s Gastroesop hageal reflux disease without esophagiti s Disease Active 2021-11 00:00: 00 Evelina Donovan - Externa l Primary hypertensi on Primary hypertensi on Disease Active 08-03 00:00: 00 Evelina Donovan - Externa l Stage 3a chronic kidney disease Stage 3a chronic kidney disease Disease Active 08-03 00:00: 00 Evelina Donovan - Externa l Elevated liver enzymes Elevated liver enzymes Disease Active 08-03 00:00: 00 Evelina Donovan - Externa l History of alcohol abuse [...] 2022-08-03 00:00:00 Previously heavy drinker. Quit in 2020 Evelina Donovan - External Education 2022-08-03 00:00:00 [...] Dosage Frequency Signature (SIG) Comments Components Source ramelteon 8 mg tablet 2024-11 0- 00:00: 00 Yes mg Moises Covington celecoxib 200 mg capsule 9- 00:00: 00 Yes 1mg Moises Covington meloxicam 15 mg tablet - 00:00: 00 Yes mg Moises Covington diazepam 5 mg tablet 07-28 00:00: 00 Yes mg Moises Covington omeprazole 40 mg capsule,del ayed release 8-13 00:00: 00 Yes 1mg Moises Covington ramelteon 8 mg tablet 8-05 00:00: 00 Yes mg Moises Covington amlodipine 10 mg tablet 8-05 00:00: 00 Yes 1mg Moises Covington lisinopril 40 mg tablet 8-05 00:00: 00 Yes 1mg Moises Covington carvedilol 12.5 mg tablet 8-05 00:00: 00 Yes 1mg Moises Covington atorvastati n 20 mg tablet 8-05 00:00: 00 Yes 1mg Moises Covington celecoxib 200 mg capsule 7-22 00:00: 00 Yes 1mg Moises Covington omeprazole 40 mg capsule,del ayed release 0 7-22 00:00: 00 Yes 1mg Moises Covington ramelteon 8 mg tablet 0 6-23 00:00: 00 Yes mg Moises Covington ramelteon 8 mg tablet 0 5-14 00:00: 00 Yes 1mg Moises Covington oxybutynin chloride ER 10 mg tablet,exte nded release 24 hr 0 4-11 00:00: 00 Yes 1mg Moises Covington gabapentin 300 mg capsule 0 4-08 00:00: 00 Yes mg Moises Covington ramelteon 8 mg tablet 0 1-28 00:00: 00 Yes 1mg Moises Covington oxybutynin chloride ER 10 mg tablet,exte nded release 24 hr 1-28 00:00: 00 Yes 1mg Moises Covington amlodipine 10 mg tablet -15 00:00: 00 Yes 1mg Moises Covington lisinopril 40 mg tablet -15 00:00: 00 Yes 1mg Moises Covington carvedilol 12.5 mg tablet -15 00:00: 00 Yes 1mg Moises Covington atorvastati n 20 mg tablet -15 00:00: 00 Yes 1mg Moises Covington celecoxib 200 mg capsule -15 00:00: 00 Yes 1mg Moises Covington omeprazole 40 mg capsule,del ayed release - 00:00: 00 Yes 1mg Moises Covington oxybutynin chloride ER 10 mg tablet,exte nded release 24 hr 2023-11 2-16 00:00: 00 Yes 1mg Moises Covington celecoxib 200 mg capsule 2023-11 2- 00:00: 00 Yes mg Moises Covington omeprazole 40 mg capsule,del ayed release 2023-11 0-09 00:00: 00 Yes mg Moises Covington omeprazole 40 mg capsule,del ayed release 2023-11 0-08 00:00: 00 Yes mg Moises Covington oxybutynin chloride ER 10 mg tablet,exte nded release 24 hr -20 00:00: 00 Yes 1mg Moises Covington prednisone 50 mg tablet - 00:00: 00 Yes 1mg Moises Covington atorvastati n 20 mg tablet - 00:00: 00 Yes 1mg Moises Covington amlodipine 10 mg tablet - 00:00: 00 Yes 1mg Moises Covington lisinopril 40 mg tablet - 00:00: 00 Yes 1mg Moises Covington oxybutynin chloride 5 mg tablet - 00:00: 00 Yes 1mg Moises Covington carvedilol 12.5 mg tablet - 00:00: 00 Yes 1mg Moises Covington Celebrex 200 mg capsule - 00:00: 00 Yes 1mg Moises Covington prednisone 10 mg tablets in a dose pack 0 05-15 00:00: 00 Yes mg Moises Covington amlodipine 10 mg tablet 0 20 00:00: 00 Yes 1mg Moises Covingtno lisinopril 40 mg tablet 0 05-15 00:00: 00 Yes 1mg Moises Covington atorvastati n 20 mg tablet 0 05-15 00:00: 00 Yes 1mg Moises Covington amlodipine 10 mg tablet 0 05-01 00:00: 00 Yes 1mg Moises Covington atorvastati n 20 mg tablet 0 04-25 00:00: 00 Yes 1mg Moises Covington lisinopril 40 mg tablet 0 04-25 00:00: 00 Yes 1mg Moises Covington diclofenac 1 % topical gel 0 04-03 00:00: 00 Yes 1% Moises Covington Tylenol Arthritis Pain 650 mg tablet,exte nded release 04-03 00:00: 00 Yes 1mg Moises Covington gabapentin 100 mg capsule 0 - 00:00: 00 Yes 1mg Moises Covington TAKE 1 TABLET BY MOUTH THREE TIMES A DAY NEEDED FOR PAIN 0 04-03 00:00: 00 Yes Moises Covington CARVEDILOL 2023-0 3- 00:00: 00 Yes Moises Covington lisinopril 40 mg tablet 0 - 00:00: 00 Yes 1mg Moises Covington amlodipine 10 mg tablet 0 - 00:00: 00 Yes 1mg Moises Covington atorvastati n 20 mg tablet 0 - 00:00: 00 Yes 1mg Moises Covington carvedilol 12.5 mg tablet 2023-0 -06 00:00: 00 Yes 1mg Moises Covington omeprazole 40 mg capsule,del ayed release 0 3-06 00:00: 00 Yes 1mg Moises Covington carvedilol 12.5 mg tablet 2023-0 2-28 00:00: 00 Yes mg Moises Covington omeprazole 40 mg capsule,del ayed release 0 2-27 00:00: 00 Yes mg Moises Covington CARVEDILOL 2-21 00:00: 00 Yes Moises Covington TAKE 1 CAPSULE 30 MINUTES BEFORE MEAL TWICE A DAY 90 DAYS 2-08 00:00: 00 Yes Moises Covington lisinopril 40 mg tablet 12-26 00:00: 00 Yes mg Moises Covington TAKE 1 TABLET TWICE DAILY. 12-26 00:00: 00 04-09 00:00 :00 No 125 Moises Covington TAKE 1 CAPSULE TWICE DAILY. 12-26 00:00: 00 04-09 00:00 :00 No 40 Moises Covington OMEPR/SOD BI 40-1100 12-06 00:00: 00 Yes Moises Covington SUCRALFATE 1GM 12-05 00:00: 00 Yes Moises Covington TAKE 1 CAPSULE BY MOUTH TWICE A DAY FOR 30 DAYS 12-05 00:00: 00 Yes Moises Covington TAKE 2 TABLETS BY MOUTH TWICE A DAY FOR 9 DAYS 2022-11 00:00: 00 Yes Moises Covington TAKE 1 TABLET BY MOUTH TWICE A DAY 2022-11 00:00: 00 Yes Moises Covington TAKE 10 ML BY MOUTH BEFORE MEALS AT BEDTIME 2022-11 00:00: 00 Yes Moises Covington TAKE 1 CAPSULE BY MOUTH TWICE A DAY 2022-11 00:00: 00 04-09 00:00 :00 No Moises Covington atorvastati n 20 mg tablet 2022-11 00:00: 00 Yes mg Moises Covington TAKE 1 TABLET DAILY. 2022-11 00:00: 00 04-09 00:00 :00 No 40 Moises Covington TAKE 1 TABLET TWICE DAILY. 2022-11 00:00: 00 04-09 00:00 :00 No 500 Moises Covington amlodipine 10 mg tablet 2022-11 00:00: 00 Yes mg Moises Covington TAKE 1 TABLET (3.125 MG TOTAL) BY MOUTH IN THE MORNING AND IN THE EVENING WITH MEALS 2022-11 00:00: 00 Yes Moises Covington TAKE 1 TABLET TWICE DAILY. 2022-11 0 00:00: 00 04-09 00:00 :00 No 600 Moises F Adria TAKE 1 TABLET DAILY. 2022-11 00:00: 00 04-09 00:00 :00 No 10 Moises Idania Covington TAKE 1 TABLET 2 TIMES DAILY AFTER MEALS 2022-11 0 00:00: 00 04-09 00:00 :00 No 75 Moisesheather Covington TAKE 1 TABLET BY MOUTH IN THE MORNING AND IN THE EVENING WITH MEALS 2022-11 00:00: 00 Yes Moises Idania Covington TAKE 1 TABLET BY MOUTH EVERY DAY 2022-11 012 00:00: 00 04-09 00:00 :00 No 10 Moisesheather Covington TAKE 1 TABLET DAILY - 00:00: 00 04-09 00:00 :00 No Moises F Adria BUPROPION HYDROCHLORI DE ER (XL) 150 MG TB24 6- 00:00: 00 Yes Moises Covington 1 TABLET PO BID 04-11 00:00: 00 04-09 00:00 :00 No 500 Moises F Adria TAKE 1 TABLET BY MOUTH EVERY DAY - 00:00: 00 Yes Moises Covington 1 TABLET PO BID - 00:00: 00 04-09 00:00 :00 No 500 Moises Covington TAKE 1 TABLET TWICE DAILY. 5- 00:00: 00 04-09 00:00 :00 No 600 Moises Covington TAKE 1 TABLET DAILY. 5- 00:00: 00 04-09 00:00 :00 No 20 Moises Idania Covington TAKE 1 TABLET DAILY. 5- 00:00: 00 04-09 00:00 :00 No 10 Moisesheather Covington ESCITALOPRA M 10MG 2-03 00:00: 00 Yes [id number] Moises Covington AMLODIPINE 10MG 2-03 00:00: 00 04-09 00:00 :00 No Moises F Adria CARVEDILOL 2-01 00:00: 00 Yes Moises Covington TAKE 1 TABLET BY MOUTH EVERY DAY 0 2- 00:00: 00 Yes Moises Covington TAKE 1 TABLET BY MOUTH EVERY DAY 2- 00:00: 00 Yes Moises Covington Dose Unknown 1-18 00:00: 00 04-09 00:00 :00 No Moises Covington HYDROXYZ HCL 25MG 2021-11 1-29 00:00: 00 Yes Moises Covington HYDROXYZ HCL 25MG 2021-11 1- 00:00: 00 Yes [id number] Moises Covington ESCITALOPRA M 10MG 2021-11 1- 00:00: 00 Yes [id number] Moises Covington TRAZODONE 50MG 2021-11 0- 00:00: 00 Yes [id number] Moises Covington TAKE 1 TABLET BY MOUTH TWICE A DAY FOR 7 DAYS 08-08 00:00: 00 Yes Moises Covington Carvedilol (Coreg) 3.125 MG oral Tablet 08-04 00:00: 00 Yes [id number] 3.125mg Take 1 tablet (3.125 mg total) by mouth in the morning and 1 tablet (3.125 mg total) in the evening. Take with meals. Evelina snow TAKE BY MOUTH 1 TABLET IN THE MORNING AND THE EVENING TAKE WITH A MEALS 08-03 00:00: 00 Yes Moises Covington DOXEPIN HYDROCHLORI DE 3MG 07-21 00:00: 00 Yes 3000 Moises Covington TAKE 1 CAPSULE BY MOUTH THREE TIMES A DAY 07-19 00:00: 00 Yes Moises Covington IBUPROFEN 800MG 07-19 00:00: 00 Yes [id number] Moises Covington BUPROPION HYDROCHLORI DE E 150MG 07-17 00:00: 00 Yes Moises Covington TAKE 1 TABLET BY MOUTH TWICE A DAY 07-04 00:00: 00 04-09 00:00 :00 No Moises Covington TAKE 1 TABLET BY MOUTH EVERY DAY 06-30 00:00: 00 Yes Moises Covington Amlodipine Besylate 10 MG oral Tablet 06-30 00:00: 00 Yes [id number] 10mg Take 1 tablet (10 mg total) by mouth daily Evelina Donovan - Externa l TAKE 1 TABLET BY MOUTH EVERY DAY 06-30 00:00: 00 04-09 00:00 :00 No Moises Covington TRAZODONE HYDROCHLORI DE 50MG 06-29 00:00: 00 Yes [id number] Moises Covington TAKE 1 TABLET BY MOUTH EVERY DAY 06-26 00:00: 00 Yes Moises Covington TAKE 1 CAPSULE BY MOUTH TWICE A DAY 0 06-22 00:00: 00 Yes 100 Moises Covington &lt 0 06-22 00:00: 00 Yes 500 Moises Covington &lt 0 06-16 00:00: 00 Yes 800 Moises Covington BUPROPION HYDROCHLORI DE E 150MG 0 06-16 00:00: 00 Yes [id number] Moises Covington DOXEPIN HYDROCHLORI DE 3MG 06-16 00:00: 00 Yes 3000 Moises Covington IBUPROFEN 800MG 06-14 00:00: 00 Yes [id number] Moises Covington NITROFURANT OIN MONOHYDRAT 100MG 06-07 00:00: 00 Yes [id number] Moises Covington AMOXICILLIN /CLAVULANAT E P 964-944 7146-0 7-07 00:00: 00 Yes Moises Covington IBUPROFEN 800MG 18 00:00: 00 Yes [id number] Moises Covington amlodipine 10 mg tablet 04 00:00: 00 Yes 1mg Moises Covington amlodipine 10 mg tablet 3-23 00:00: 00 Yes 1mg Moises Covington amlodipine 10 mg tablet 2-23 00:00: 00 Yes 1mg Moises Covington Dose Unknown 04-12 00:00: 00 Yes Moises Covington Bactrim DS 800 mg-160 mg tablet 04-12 00:00: 00 Yes 1mg Moises Covington Vital Signs Vital Name Observation Time Observation Value Comments S ource Systolic blood pressure 2022-09-29 15:24:00 138 mm[Hg] Evelina Schmitz ld - External Diastolic blood pressure 2022-09-29 15:24:00 70 mm[Hg] Evelina Joseybo ld - External Heart rate 2022-09-29 15:24:00 82 /min Kelse y Seybold - External Body temperature 2022-09-29 15:24:00 36.28 Indira Evelina Seybold - External Respiratory rate 2022-09-29 15:24:00 14 /min Evelina Joseybold - External Body height 2022-09-29 15:24:00 160 cm Eleonora ey Seybold - External Body weight 2022-09-29 15:24:00 68.947 kg Eleonora ey Seybold - External BMI 2022-09-29 15:24:00 26.93 kg/m2 Eleonora ey Seybold - External Systolic blood pressure 2022-08-31 15:37:00 130 mm[Hg] Evelina Seybo ld - External Diastolic blood pressure 2022-08-31 15:37:00 70 mm[Hg] Evelina Joseybo ld - External Heart rate 2022-08-31 14:58:00 77 /min Earlse y Seybold - External Body temperature 2022-08-31 14:58:00 36.17 Indria Evelina Seybold - External Respiratory rate 2022-08-31 14:58:00 14 /min Evelina Joseybold - External Body height 2022-08-31 14:58:00 160 cm Eleonora ey Seybold - External Body weight 2022-08-31 14:58:00 67.132 kg Eleonora johnson Seybold - External BMI 2022-08-31 14:58:00 26.22 kg/m2 Eleonora ey Seybold - External BP Systolic 2025-09-02 13:52:00 103 mm[Hg] Step hen F Adria BP Diastolic 2025-09-02 13:52:00 65 mm[Hg] Jj phen F Adria Weight Measured 2025-09-02 13:52:00 137.20 pounds Moises F Adria Height Measured 2025-09-02 13:52:00 62.00 inches Moiess F Adria Body Temperature 2025-09-02 13:52:00 98.20 degrees Moises F Adria Heart Rate 2025-09-02 13:52:00 56.00 /min Ai en F Adria Respiratory Rate 2025-09-02 13:52:00 Moises F Adria BP Systolic 2025-06-30 10:43:00 100 mm[Hg] Step hen F Adria BP Diastolic 2025-06-30 10:43:00 77 mm[Hg] Jj phen F Adria Weight Measured 2025-06-30 10:43:00 145.20 pounds Moises F Adria Height Measured 2025-06-30 10:43:00 62.00 inches Moises F Adria Body Temperature 2025-06-30 10:43:00 97.50 degrees Moises F Adria Heart Rate 2025-06-30 10:43:00 58.00 /min Ai en F Adria Respiratory Rate 2025-06-30 10:43:00 Moises F Adria BP Systolic 2025-03-31 10:45:00 130 mm[Hg] Step hen F Adria BP Diastolic 2025-03-31 10:45:00 83 mm[Hg] Jj phen F Adria Weight Measured 2025-03-31 10:45:00 152.60 pounds Moises F Adria Height Measured 2025-03-31 10:45:00 62.00 inches Moises F Adria Body Temperature 2025-03-31 10:45:00 97.50 degrees Moises F Adria Heart Rate 2025-03-31 10:45:00 69.00 /min Ai en F Adria Respiratory Rate 2025-03-31 10:45:00 16.00 /min Moises F Adria BP Systolic 2025-03-03 09:59:00 128 mm[Hg] Step hen F Adria BP Diastolic 2025-03-03 09:59:00 71 mm[Hg] Jj phen F Adria Weight Measured 2025-03-03 09:59:00 152.00 pounds Moises F Adria Height Measured 2025-03-03 09:59:00 62.00 inches Moises F Adria Body Temperature 2025-03-03 09:59:00 97.30 degrees Moises F Adria Heart Rate 2025-03-03 09:59:00 67.00 /min Ai en F Adria Respiratory Rate 2025-03-03 09:59:00 18.00 /min Moises F Adria BP Systolic 2024-12-10 09:45:00 134 mm[Hg] Step hen F Adria BP Diastolic 2024-12-10 09:45:00 80 mm[Hg] Jj phen F Adria Weight Measured 2024-12-10 09:45:00 150.40 pounds Moises F Adria Height Measured 2024-12-10 09:45:00 62.00 inches Moises F Adria Body Temperature 2024-12-10 09:45:00 97.80 degrees Moises F Adria Heart Rate 2024-12-10 09:45:00 69.00 /min Ai en F Adria Respiratory Rate 2024-12-10 09:45:00 16.00 /min Moises F Adria BP Systolic 2024-08-15 09:36:00 109 mm[Hg] Step hen F Adria BP Diastolic 2024-08-15 09:36:00 66 mm[Hg] Jj phen F Adria Weight Measured 2024-08-15 09:36:00 146.20 pounds Moises F Adria Height Measured 2024-08-15 09:36:00 62.00 inches Moises F Adria Body Temperature 2024-08-15 09:36:00 97.90 degrees Moises F Adria Heart Rate 2024-08-15 09:36:00 63.00 /min Ai en F Adria Respiratory Rate 2024-08-15 09:36:00 18.00 /min Moises F Adria BP Systolic 2024-08-01 13:38:00 107 mm[Hg] Step hen F Adria BP Diastolic 2024-08-01 13:38:00 62 mm[Hg] Jj phen F Adria Weight Measured 2024-08-01 13:38:00 145.40 pounds Moises F Adria Height Measured 2024-08-01 13:38:00 62.00 inches Moises F Adria Body Temperature 2024-08-01 13:38:00 Moises F Adria Heart Rate 2024-08-01 13:38:00 57.00 /min Ai en F Adria Respiratory Rate 2024-08-01 13:38:00 17.00 /min Moises F Adria BP Systolic 2024-05-27 11:17:00 111 mm[Hg] Step hen F Adria BP Diastolic 2024-05-27 11:17:00 69 mm[Hg] Jj phen F Adria Weight Measured 2024-05-27 11:17:00 143.80 pounds Moises F Adria Height Measured 2024-05-27 11:17:00 62.00 inches Moises F Adria Body Temperature 2024-05-27 11:17:00 98.20 degrees Moises F Adria Heart Rate 2024-05-27 11:17:00 57.00 /min Ai en F Adria Respiratory Rate 2024-05-27 11:17:00 18.00 /min Moises F Adria BP Systolic 2024-04-03 14:51:00 131 mm[Hg] Step hen F Adria BP Diastolic 2024-04-03 14:51:00 78 mm[Hg] Jj phen F Adria Weight Measured 2024-04-03 14:51:00 141.60 pounds Moises F Adria Height Measured 2024-04-03 14:51:00 62.00 inches Moises F Adria Body Temperature 2024-04-03 14:51:00 98.10 degrees Moises F Adria Heart Rate 2024-04-03 14:51:00 71.00 /min Ai en F Adria Respiratory Rate 2024-04-03 14:51:00 19.00 /min Moises F Adria BP Systolic 2024-02-01 10:05:00 115 mm[Hg] Step hen F Adria BP Diastolic 2024-02-01 10:05:00 73 mm[Hg] Jj phen F Adria Weight Measured 2024-02-01 10:05:00 141.40 pounds Moises F Adria Height Measured 2024-02-01 10:05:00 62.00 inches Moises F Adria Body Temperature 2024-02-01 10:05:00 98.10 degrees Moises F Adria Heart Rate 2024-02-01 10:05:00 63.00 /min Ai en F Adria Respiratory Rate 2024-02-01 10:05:00 17.00 /min Moises F Adria BP Systolic 2023-12-26 14:41:00 121 mm[Hg] Step hen F Adria BP Diastolic 2023-12-26 14:41:00 75 mm[Hg] Jj phen F Adria Weight Measured 2023-12-26 14:41:00 144.00 pounds Moises F Adria Height Measured 2023-12-26 14:41:00 62.00 inches Moises F Adria Body Temperature 2023-12-26 14:41:00 98.50 degrees Moises F Adria Heart Rate 2023-12-26 14:41:00 69.00 /min Ai en F Adria Respiratory Rate 2023-12-26 14:41:00 18.00 /min Moises F Adria BP Systolic 2023-11-05 13:39:00 110 mm[Hg] Step hen F Adria BP Diastolic 2023-11-05 13:39:00 76 mm[Hg] Jj phen F Adria Weight Measured 2023-11-05 13:39:00 152.00 pounds Moises F Adria Height Measured 2023-11-05 13:39:00 62.00 inches Moises F Adria Body Temperature 2023-11-05 13:39:00 97.50 degrees Moises F Adria Heart Rate 2023-11-05 13:39:00 77.00 /min Ai en F Adria Respiratory Rate 2023-11-05 13:39:00 20.00 /min Moises F Adria BP Systolic 2023-09-21 08:35:00 120 mm[Hg] Step hen F Adria BP Diastolic 2023-09-21 08:35:00 86 mm[Hg] Jj phen F Adria Weight Measured 2023-09-21 08:35:00 154.00 pounds Moises F Adria Height Measured 2023-09-21 08:35:00 62.00 inches Moises F Adria Body Temperature 2023-09-21 08:35:00 97.20 degrees Moises F Adria Heart Rate 2023-09-21 08:35:00 68.00 /min Ai en F Adria Respiratory Rate 2023-09-21 08:35:00 18.00 /min Moises F Adria BP Systolic 2023-06-05 13:12:00 127 mm[Hg] Step hen F Adria BP Diastolic 2023-06-05 13:12:00 80 mm[Hg] Jj phen F Adria Weight Measured 2023-06-05 13:12:00 150.00 pounds Moises F Adria Height Measured 2023-06-05 13:12:00 62.00 inches Moises F Adria Body Temperature 2023-06-05 13:12:00 97.80 degrees Moises F Adria Heart Rate 2023-06-05 13:12:00 78.00 /min Ai en F Adria Respiratory Rate 2023-06-05 13:12:00 20.00 /min Moises F Adria BP Systolic 2023-04-24 16:25:00 Step hen F Adria BP Diastolic 2023-04-24 16:25:00 Jj phen F Adria Weight Measured 2023-04-24 16:25:00 155.00 pounds Moises F Adria Height Measured 2023-04-24 16:25:00 63.00 inches Moises F Adria Body Temperature 2023-04-24 16:25:00 Moises F Adria Heart Rate 2023-04-24 16:25:00 Ai en F Adria Respiratory Rate 2023-04-24 16:25:00 Moises F Adria BP Systolic 2023-04-11 13:35:00 151 mm[Hg] Step hen F Adria BP Diastolic 2023-04-11 13:35:00 88 mm[Hg] Jj phen F Adria Weight Measured 2023-04-11 13:35:00 155.00 pounds Moises F Adria Height Measured 2023-04-11 13:35:00 63.00 inches Moises F Adria Body Temperature 2023-04-11 13:35:00 97.10 degrees Moises F Adria Heart Rate 2023-04-11 13:35:00 71.00 /min Ai en F Adria Respiratory Rate 2023-04-11 13:35:00 18.00 /min Moises F Adria BP Systolic 2023-03-30 13:11:00 147 mm[Hg] Step hen F Adria BP Diastolic 2023-03-30 13:11:00 85 mm[Hg] Jj phen F Adria Weight Measured 2023-03-30 13:11:00 159.00 pounds Moises F Adria Height Measured 2023-03-30 13:11:00 63.00 inches Moises F Adria Body Temperature 2023-03-30 13:11:00 97.10 degrees Moises F Adria Heart Rate 2023-03-30 13:11:00 83.00 /min Ai en F Adria Respiratory Rate 2023-03-30 13:11:00 16.00 /min Moises F Adria BP Systolic 2023-03-20 13:13:00 147 mm[Hg] Step hen F Adria BP Diastolic 2023-03-20 13:13:00 88 mm[Hg] Jj phen F Adria Weight Measured 2023-03-20 13:13:00 161.00 pounds Moises Covington Height Measured 2023-03-20 13:13:00 63.00 inches Moises Covington Body Temperature 2023-03-20 13:13:00 97.00 degrees Moises Covington Heart Rate 2023-03-20 13:13:00 80.00 /min Ai Covington Respiratory Rate 2023-03-20 13:13:00 16.00 /min Moises Covington Procedures Procedure Date / Time Performed Performing Clinicia n Source [id number] Removal Impacted Cerumen Using Irrigation/lavage, Unilateral 2025-03-31 00:00:00 Moises Covington Encounters Start Date/Time End Date/Time Encounter Type Admission Type Attending [facility] [place] Facility Care Department Encounter ID Source 2025-09-02 14:46:39 2025-09-02 14:46:39 Outpatient SFA [facility] [id number] Moises Covington 2025-09-02 00:00:00 2025-09-02 00:00:00 Outpatient Visit SFA [id number] Moises Covington 2025-07-28 00:00:00 2025-07-28 00:00:00 Outpatient KELTON PIERRE [id number] [facility] 2025-07-24 12:48:09 2025-07-24 12:48:09 Outpatient SFA [facility] [id number] Moises Covington 2025-07-06 00:00:00 2025-07-06 00:00:00 Outpatient KELTON PIERRE [id number] [facility] 2025-06-30 10:29:22 2025-06-30 10:29:22 Outpatient SFA S[facility] [id number] Moises Covington 2025-06-30 00:00:00 2025-06-30 00:00:00 Outpatient Visit SFA [id number] Moises Covington 2025-04-10 00:00:2025-04-10 00:00:00 Outpatient KELTON PIERRE [id number] [facility] 2025-03-31 10:39:04 2025-03-31 10:39:04 Outpatient SFA SFA [id number] Moises Covington 2025-03-31 00:00:00 2025-03-31 00:00:00 Outpatient Visit SFA [id number] Moises Covington 2025-03-03 09:55:35 2025-03-03 09:55:35 Outpatient SFA SFA [id number] Moises Covington 2025-03-03 00:00:00 2025-03-03 00:00:00 Outpatient Visit SFA [id number] Moises Covington 2025-02-28 00:00:00 2025-02-28 00:00:00 Outpatient KELTON PIERRE EVELINA [id number] [facility] 2025-02-17 08:30:00 2025-02-17 08:30:00 Outpatient KELTON PIERRE EVELINA [id number] [facility] 2025-01-22 00:00:00 2025-01-22 00:00:00 Outpatient KELTON PIERRE [id number] [facility] 2024-12-10 10:44:40 2024-12-10 10:44:40 Outpatient SFA SFA [id number] Moises Emerson Adria 2024-12-10 00:00:00 2024-12-10 00:00:00 Outpatient Visit SFA [id number] Moises C[place] 2024-08-15 09:33:27 2024-08-15 09:33:27 Outpatient SFA SFA [id number] Moises C[place] 2024-08-15 00:00:00 2024-08-15 00:00:00 Outpatient Visit SFA [id number] Moises [place] 2024-08-01 13:28:52 2024-08-01 13:28:52 Outpatient SFA SFA [id number] Moises C[place] 2024-08-01 00:00:00 2024-08-01 00:00:00 Outpatient Visit SFA [id number] Moises [place] 2024-05-27 10:54:21 2024-05-27 10:54:21 Outpatient SFA SFA [id number] Moises C[place] 2024-05-27 00:00:00 2024-05-27 00:00:00 Outpatient Visit SFA [id number] Moises C[place] 2024-05-15 00:00:00 2024-05-15 00:00:00 Outpatient Visit SFA [id number] Moises [place] 2024-05-14 13:26:19 2024-05-14 13:26:19 Outpatient SFA SFA [id number] Mioses C[place] 2024-05-14 00:00:00 2024-05-14 00:00:00 Outpatient Visit SFA [id number] Moises [place] 2024-04-03 14:46:10 2024-04-03 14:46:10 Outpatient SFA SFA [id number] Moises C[place] 2024-04-03 00:00:00 2024-04-03 00:00:00 Outpatient Visit SFA [id number] Moises [place] 2024-03-29 00:00:00 2024-03-29 00:00:00 Outpatient KELTON PIERRE [id number] vEelina Donovan 2024-02-26 13:45:00 2024-02-26 13:45:00 Outpatient PREZAKELTON VicenteROSIE MALIK [id number] [facility] 2024-02-14 00:00:00 2024-02-14 00:00:00 Outpatient KELTON PIERREROSIE MALIK [id number] [facility] 2024-02-01 10:02:36 2024-02-01 10:02:36 Outpatient SFA SFA [id number] Moises C[place] 2024-01-30 09:10:23 2024-01-30 09:10:23 Outpatient SFA SFA [id number] Moises C[place] 2024-01-16 00:00:00 2024-01-16 00:00:00 Outpatient KELTON PIERRE EVELINA [id number] [facility] 2024-01-01 10:06:34 2024-01-01 10:06:34 Outpatient SFA SFA [id number] 0206 Moises Covingtno 2023-12-25 11:30:00 2023-12-25 11:30:00 Outpatient KELTON PIERREROSIE MAILK [id number] [facility] 2023-11-07 16:20:41 2023-11-07 16:20:41 Outpatient SFA SFA [id number] 1213 Moises [place] 2023-11-05 13:38:31 2023-11-05 13:38:31 Outpatient SFA SFA [id number] 1211 Moises [place] 2023-10-16 00:00:00 2023-10-16 00:00:00 Outpatient HARISZAKELTON VicenteROSIE MALIK [id number] [facility] 2023-10-14 00:00:00 2023-10-14 00:00:00 Outpatient KELTON PIERRE EVELINA MALIK [id number] [facility] 2023-09-21 08:23:47 2023-09-21 08:23:47 Outpatient SFA SFA [id number] 1027 Moises [place] 2023-09-09 00:00:00 2023-09-09 00:00:00 [facility]EL[facility] [id number] [facility]08 00:00:00 2023-09-08 00:00:00 Outpatient KELTON PIERRE EVELINA [id number] [facility] 2023-06-05 13:04:29 2023-06-05 13:04:29 Outpatient SFA SFA [id number] 0711 Moises [place]oving[place] 2023-05-02 14:30:00 2023-05-02 14:30:00 Outpatient KELTON PIERRE EVELINA [id number] [facility] 2023-04-27 00:00:00 2023-04-27 00:00:00 Outpatient KELTON PIERREROSIE MALIK [id number] [facility] 2023-04-11 13:26:37 2023-04-11 13:26:37 Outpatient SFA SFA [id number] 0517 Moises [place] 2023-04-02 00:00:00 2023-04-02 00:00:00 Outpatient KELTON PIERRE EVELINA [id number] [facility] 2023-04-01 00:00:00 2023-04-01 00:00:00 Outpatient KELTON PIERREROSIE MALIK [id number] [facility] 2023-03-30 13:07:56 2023-03-30 13:07:56 Outpatient SFA SFA [id number] 0505 Moises Coving[place] 2023-03-20 13:08:10 2023-03-20 13:08:10 Outpatient SFA SFA [id number] 0425 Moises Coving[place] 2023-03-01 08:15:00 2023-03-01 08:15:00 Outpatient KELTON PIERRE EVELINA MALIK [id number] [facility] 2022-12-29 00:00:00 2022-12-29 00:00:00 Outpatient LAINA GUDINO [id number] [facility] 2022-12-27 00:00:00 2022-12-27 00:00:00 Outpatient KELTON PIERRE EVELINA AMLIK [id number] [facility] 2022-12-08 10:45:2022-12-08 10:45:00 Outpatient PREZAS, KELTON HERRERASEY [id number] [facility] 2022-11-27 00:00:00 2022-11-27 00:00:00 Outpatient FARZADSUKI ACOSTA EVELINA [id number] [facility] 2022-10-16 00:00:00 2022-10-16 00:00:00 Outpatient PREZAS, KELTON MALIK EVELINA [id number] [facility] 2022-10-02 00:00:00 2022-10-02 00:00:00 Outpatient PREZAS, KELTON MALIK EVELINA [id number] [facility] 2022-10-02 00:00:00 2022-10-02 00:00:00 Outpatient PREZAS, KELTON MALIK EVELINA [id number] [facility] 2022-09-29 10:30:00 2022-09-29 10:30:00 Outpatient PREZAS, KELTON MALIK EVELINA [id number] [facility] 2022-08-31 10:00:00 2022-08-31 10:00:00 Outpatient PREZAS, KELTON MALIK EVELINA [id number] [facility] 2022-08-05 00:00:00 2022-08-05 00:00:00 Outpatient TERESELAINA EVELINA [id number] [facility] 2022-08-04 00:00:00 2022-08-04 00:00:00 Outpatient PREZASKELTON EVELINA [id number] [facility] 2022-08-03 11:15:00 2022-08-03 11:45:00 Office Visit Kelton Pierre [id number] [facility] 2022-07-25 00:00:00 2022-07-25 00:00:00 Outpatient PREZAS, KELTON MALIK EVELINA [id number] [facility] 2022-06-30 11:15:00 2022-06-30 11:15:00 Outpatient LABLuz Elena MALIK [id number] [facility] 2022-06-30 10:30:00 2022-06-30 11:00:00 Office Visit Laina Gudino [id number] [facility] 2022-06-16 13:45:00 2022-06-16 14:00:00 Office Visit Laina Gudino [id number] [facility] 2022-06-14 13:30:00 2022-06-14 13:30:00 Outpatient LAINA GUDINO EVELINA MALIK [id number] [facility] 2022-06-07 00:00:00 2022-06-07 00:00:00 Outpatient LAINA GUDINO EVELINA MALIK [id number] [facility] 2022-06-02 00:00:00 2022-06-02 00:00:00 Outpatient JE SANABRIA EVELINA MALIK [id number] [facility] 2022-05-31 10:20:00 2022-05-31 10:20:00 Outpatient LAB90 EVELINA HERRERASEY [id number] [facility] 2022-05-31 09:30:00 2022-05-31 10:00:00 Office Visit Laina Gudino Jackson [id number] [facility] Josecoco Results Test Description Test Time Test Comments Results Result Co mments Source Moises CovingtonCOMPREHENSIVE METABOLIC [id number] 00:00:00* Test Item Value Reference Range Interpretation Comme nts GLUCOSE (test code = 2345-7) 119 mg/dL UREA NITROGEN (BUN) (test code = 3094-0) 16 mg/dL CREATININE (test code = 2160-0) 1.24 mg/dL EGFR (test code = 55897-6) 48 mL/min/1.73m2 BUN/CREATININE RATIO (test code = 3097-3) 13 (calc) SODIUM (test code = 2951-2) 142 mmol/L POTASSIUM (test code = 2823-3) 5.0 mmol/L CHLORIDE (test code = 2075-0) 110 mmol/L CARBON DIOXIDE (test code = 2027-9) 26 mmol/L CALCIUM (test code = 58560-8) 9.8 mg/dL PROTEIN, TOTAL (test code = 2885-2) 7.3 g/dL ALBUMIN (test code = 1751-7) 4.5 g/dL GLOBULIN (test code = 72021-8) 2.8 g/dL(calc) ALBUMIN/GLOBULIN RATIO (test code = 1759-0) 1.6 (calc) BILIRUBIN, TOTAL (test code = 1975-2) 0.3 mg/dL ALKALINE PHOSPHATASE (test code = 6768-6) 101 U/L AST (test code = 1920-8) 15 U/L ALT (test code = 1742-6) 12 U/L Moises CovingtonHEMOGLOBIN [id number] 00:00:00* Test Item Value Reference Range Interpretation Comme nts HEMOGLOBIN A1c (test code = 4548-4) 6.0 % Moises CovingtonLIPID [id number] 00:00:00* Test Item Value Reference Range Interpretation Comme nts CHOLESTEROL, TOTAL (test cod e = 2093-3) 129 mg/dL HDL CHOLESTEROL (test code = 2085-9) 47 mg/dL TRIGLYCERIDES (test code = 2571-8) 135 mg/dL LDL-CHOLESTEROL (test code = 69863-0) 60 mg/dL(calc) CHOL/HDLC RATIO (test code = 9830-1) 2.7 (calc) NON HDL CHOLESTEROL (test co de = 39863-0) 82 mg/dL(calc) Moises CovingtonCOMPREHENSIVE METABOLIC [id number] 00:00:00* Test Item Value Reference Range Interpretation Comme nts GLUCOSE (test code = 2217) 94 MG/DL BUN (test code = 2208) 22 MG/DL CREATININE (test code = 2214) 1.32 MG/DL eGFR (2020 CKD-EPI) (test co de = 42421) 45 ML/MIN/1.73 CALC BUN/CREAT (test code = 2235) 17 RATIO SODIUM (test code = 2231) 143 MEQ/L POTASSIUM (test code = 2228) 5.4 MEQ/L CHLORIDE (test code = 2215) 107 MEQ/L CARBON DIOXIDE (test code = 2206) 23 MEQ/L CALCIUM (test code = 2209) 10.1 MG/DL PROTEIN, TOTAL (test code = 2229) 7.2 G/DL ALBUMIN (test code = 2201) 4.5 G/DL CALC GLOBULIN (test code = 2240) 2.7 G/DL CALC A/G RATIO (test code = 2234) 1.7 RATIO BILIRUBIN, TOTAL (test code = 2207) 0.3 MG/DL ALKALINE PHOSPHATASE (test code = 2204) 114 U/L AST (test code = 2218) 23 U/L ALT (test code = 2219) 24 U/L Moises CovingtonLIPID [id number] 00:00:00* Test Item Value Reference Range Interpretation Comme nts CHOLESTEROL (test code = 2210) 151 MG/DL TRIGLYCERIDES (test code = 2232) 144 MG/DL HDL CHOLESTEROL (test code = 2220) 50 MG/DL CALC LDL CHOL (test code = 2237) 77 MG/DL RISK RATIO LDL/HDL (test cod e = 2238) 1.54 RATIO Moises CovingtonHEMOGLOBIN [id number] 00:00:00* Test Item Value Reference Range Interpretation Comme nts HEMOGLOBIN A1c (test code = 52757) 5.9 % Moises CovingtonCOMPREHENSIVE METABOLIC [id number] 00:00:00* Test Item Value Reference Range Interpretation Comme nts GLUCOSE (test code = 2217) 94 MG/DL BUN (test code = 2208) 22 MG/DL CREATININE (test code = 2214) 1.32 MG/DL eGFR (2020 CKD-EPI) (test co de = 83790) 45 ML/MIN/1.73 CALC BUN/CREAT (test code = 2235) 17 RATIO SODIUM (test code = 2231) 143 MEQ/L POTASSIUM (test code = 2228) 5.4 MEQ/L CHLORIDE (test code = 2215) 107 MEQ/L CARBON DIOXIDE (test code = 2206) 23 MEQ/L CALCIUM (test code = 2209) 10.1 MG/DL PROTEIN, TOTAL (test code = 2229) 7.2 G/DL ALBUMIN (test code = 2201) 4.5 G/DL CALC GLOBULIN (test code = 2240) 2.7 G/DL CALC A/G RATIO (test code = 2234) 1.7 RATIO BILIRUBIN, TOTAL (test code = 2207) 0.3 MG/DL ALKALINE PHOSPHATASE (test code = 2204) 114 U/L AST (test code = 2218) 23 U/L ALT (test code = 2219) 24 U/L Moises CovingtonLIPID [id number] 00:00:00* Test Item Value Reference Range Interpretation Comme nts CHOLESTEROL (test code = 2210) 151 MG/DL TRIGLYCERIDES (test code = 2232) 144 MG/DL HDL CHOLESTEROL (test code = 2220) 50 MG/DL CALC LDL CHOL (test code = 2237) 77 MG/DL RISK RATIO LDL/HDL (test cod e = 2238) 1.54 RATIO Moises CovingtonHEMOGLOBIN [id number] 00:00:00* Test Item Value Reference Range Interpretation Comme nts HEMOGLOBIN A1c (test code = 34897) 5.9 % Moises CovingtonCOMPREHENSIVE METABOLIC [id number] 00:00:00* Test Item Value Reference Range Interpretation Comme nts GLUCOSE (test code = 2217) 94 MG/DL BUN (test code = 2208) 22 MG/DL CREATININE (test code = 2214) 1.32 MG/DL eGFR (2020 CKD-EPI) (test co de = 49463) 45 ML/MIN/1.73 CALC BUN/CREAT (test code = 2235) 17 RATIO SODIUM (test code = 2231) 143 MEQ/L POTASSIUM (test code = 2228) 5.4 MEQ/L CHLORIDE (test code = 2215) 107 MEQ/L CARBON DIOXIDE (test code = 2206) 23 MEQ/L CALCIUM (test code = 2209) 10.1 MG/DL PROTEIN, TOTAL (test code = 2229) 7.2 G/DL ALBUMIN (test code = 2201) 4.5 G/DL CALC GLOBULIN (test code = 2240) 2.7 G/DL CALC A/G RATIO (test code = 2234) 1.7 RATIO BILIRUBIN, TOTAL (test code = 2207) 0.3 MG/DL ALKALINE PHOSPHATASE (test code = 2204) 114 U/L AST (test code = 2218) 23 U/L ALT (test code = 2219) 24 U/L Moises CovingtonLIPID [id number] 00:00:00* Test Item Value Reference Range Interpretation Comme nts CHOLESTEROL (test code = 2210) 151 MG/DL TRIGLYCERIDES (test code = 2232) 144 MG/DL HDL CHOLESTEROL (test code = 2220) 50 MG/DL CALC LDL CHOL (test code = 2237) 77 MG/DL RISK RATIO LDL/HDL (test cod e = 2238) 1.54 RATIO Moises CovingtonHEMOGLOBIN [id number] 00:00:00* Test Item Value Reference Range Interpretation Comme nts HEMOGLOBIN A1c (test code = 30069) 5.9 % Moises CovingtonCOMPREHENSIVE METABOLIC [id number] 00:00:00* Test Item Value Reference Range Interpretation Comme nts GLUCOSE (test code = 2217) 94 MG/DL BUN (test code = 2208) 22 MG/DL CREATININE (test code = 2214) 1.32 MG/DL eGFR (2020 CKD-EPI) (test co de = 75346) 45 ML/MIN/1.73 CALC BUN/CREAT (test code = 2235) 17 RATIO SODIUM (test code = 2231) 143 MEQ/L POTASSIUM (test code = 2228) 5.4 MEQ/L CHLORIDE (test code = 2215) 107 MEQ/L CARBON DIOXIDE (test code = 2206) 23 MEQ/L CALCIUM (test code = 2209) 10.1 MG/DL PROTEIN, TOTAL (test code = 2229) 7.2 G/DL ALBUMIN (test code = 2201) 4.5 G/DL CALC GLOBULIN (test code = 2240) 2.7 G/DL CALC A/G RATIO (test code = 2234) 1.7 RATIO BILIRUBIN, TOTAL (test code = 2207) 0.3 MG/DL ALKALINE PHOSPHATASE (test code = 2204) 114 U/L AST (test code = 2218) 23 U/L ALT (test code = 2219) 24 U/L Moises Emerson AustinLIPID [id number] 00:00:00* Test Item Value Reference Range Interpretation Comme nts CHOLESTEROL (test code = 2210) 151 MG/DL TRIGLYCERIDES (test code = 2232) 144 MG/DL HDL CHOLESTEROL (test code = 2220) 50 MG/DL CALC LDL CHOL (test code = 2237) 77 MG/DL RISK RATIO LDL/HDL (test cod e = 2238) 1.54 RATIO Moises CovingtonHEMOGLOBIN [id number] 00:00:00* Test Item Value Reference Range Interpretation Comme nts HEMOGLOBIN A1c (test code = 20455) 5.9 % Moises CovingtonCOMPREHENSIVE METABOLIC [id number] 00:00:00* Test Item Value Reference Range Interpretation Comme nts GLUCOSE (test code = 2217) 94 MG/DL BUN (test code = 2208) 22 MG/DL CREATININE (test code = 2214) 1.32 MG/DL eGFR (2020 CKD-EPI) (test co de = 02378) 45 ML/MIN/1.73 CALC BUN/CREAT (test code = 2235) 17 RATIO SODIUM (test code = 2231) 143 MEQ/L POTASSIUM (test code = 2228) 5.4 MEQ/L CHLORIDE (test code = 2215) 107 MEQ/L CARBON DIOXIDE (test code = 2206) 23 MEQ/L CALCIUM (test code = 2209) 10.1 MG/DL PROTEIN, TOTAL (test code = 2229) 7.2 G/DL ALBUMIN (test code = 2201) 4.5 G/DL CALC GLOBULIN (test code = 2240) 2.7 G/DL CALC A/G RATIO (test code = 2234) 1.7 RATIO BILIRUBIN, TOTAL (test code = 2207) 0.3 MG/DL ALKALINE PHOSPHATASE (test code = 2204) 114 U/L AST (test code = 2218) 23 U/L ALT (test code = 2219) 24 U/L Moises Emerson AustinLIPID [id number] 00:00:00* Test Item Value Reference Range Interpretation Comme nts CHOLESTEROL (test code = 2210) 151 MG/DL TRIGLYCERIDES (test code = 2232) 144 MG/DL HDL CHOLESTEROL (test code = 2220) 50 MG/DL CALC LDL CHOL (test code = 2237) 77 MG/DL RISK RATIO LDL/HDL (test cod e = 2238) 1.54 RATIO Moises Emerson AustinHEMOGLOBIN [id number] 00:00:00* Test Item Value Reference Range Interpretation Comme nts HEMOGLOBIN A1c (test code = 61510) 5.9 % Moises Hardy, [id number] 00:00:00* Test Item Value Reference Range Interpretation Comme nts CULTURE, URINE (test code = 57472) SPECIMEN NUMBER: [id number] Moises Hardy, [id number] 00:00:00* Test Item Value Reference Range Interpretation Comme nts CULTURE, URINE (test code = 87946) SPECIMEN NUMBER: [id number] Moises Hardy, [id number] 00:00:00* Test Item Value Reference Range Interpretation Comme nts CULTURE, URINE (test code = 93441) SPECIMEN NUMBER: [id number] Moises Hardy, [id number] 00:00:00* Test Item Value Reference Range Interpretation Comme nts CULTURE, URINE (test code = 02539) SPECIMEN NUMBER: [id number] Moises Hardy, [id number] 00:00:00* Test Item Value Reference Range Interpretation Comme nts CULTURE, URINE (test code = 93584) SPECIMEN NUMBER: [id number] Moises Hardy, [id number] 00:00:00* Test Item Value Reference Range Interpretation Comme nts CULTURE, URINE (test code = 14650) SPECIMEN NUMBER: [id number] Moises Hardy, [id number] 00:00:00* Test Item Value Reference Range Interpretation Comme nts CULTURE, URINE (test code = 13837) SPECIMEN NUMBER: [id number] Moises CovingtonHEMOGLOBIN [id number] 03:39:05* Test Item Value Reference Range Interpretation Comme nts HEMOGLOBIN A1c (test code = 02272) 5.9 % 4.2-5.6 [employer] GUIDELINES FOR HGB A1C: PREDIABETES/INCREASED RISK . . . . . . . 5.7-6.4% DIAGNOSIS OF DIABETES . . . . . . . . . >=6.5% WITH CONFIRMATION OR APPROPRIATE SYMPTOMS NOTE: ASSAY MAY BE AFFECTED BY HEMOGLOBINOPATHIES (SICKLE CELL ANEMIA, S-C DISEASE, OTHERS) OR ARTIFICIALLY LOWERED BY DECREASED RED CELL SURVIVAL (HEMOLYTIC ANEMIAS, BLOOD LOSS, ETC.). CONSIDER ALTERNATE TESTING OR LABORATORY CONSULTATION. UNLESS OTHERWISE INDICATED, ALL TESTING PERFORMED AT [facility] [address] [place] [address] TRENCH PIPE LAYER: LEONARDA SANCHEZ M.D. [place] NUMBER [id number] [facility] [place]. [id number] HEMOGLOBIN [id number] 00:00:00* Test Item Value Reference Range Interpretation Comme nts HEMOGLOBIN A1c (test code = 25661) 5.9 % Moises F AustinHEMOGLOBIN [id number] 00:00:00* Test Item Value Reference Range Interpretation Comme nts HEMOGLOBIN A1c (test code = 28639) 5.9 % Moises F AustinHEMOGLOBIN [id number] 00:00:00* Test Item Value Reference Range Interpretation Comme nts HEMOGLOBIN A1c (test code = 91010) 5.9 % Moises F AustinHEMOGLOBIN [id number] 00:00:00* Test Item Value Reference Range Interpretation Comme nts HEMOGLOBIN A1c (test code = 28201) 5.9 % Moises F AustinHEMOGLOBIN [id number] 00:00:00* Test Item Value Reference Range Interpretation Comme nts HEMOGLOBIN A1c (test code = 70412) 5.9 % Moises F AustinHEMOGLOBIN [id number] 00:00:00* Test Item Value Reference Range Interpretation Comme nts HEMOGLOBIN A1c (test code = 79539) 5.9 % Moises F AustinHEMOGLOBIN [id number] 00:00:00* Test Item Value Reference Range Interpretation Comme nts HEMOGLOBIN A1c (test code = 88642) 5.9 % Moises F AustinHEMOGLOBIN [id number] 00:00:00* Test Item Value Reference Range Interpretation Comme nts HEMOGLOBIN A1c (test code = 40073) 5.9 % Moises F AustinHEMOGLOBIN [id number] 00:00:00* Test Item Value Reference Range Interpretation Comme nts HEMOGLOBIN A1c (test code = 35376) 5.9 % Moises F AustinHEMOGLOBIN [id number] 00:00:00* Test Item Value Reference Range Interpretation Comme nts HEMOGLOBIN A1c (test code = 30469) 5.9 % Moises F AustinHEMOGLOBIN [id number] 00:00:00* Test Item Value Reference Range Interpretation Comme nts HEMOGLOBIN A1c (test code = 44335) 5.9 % Moises CovingtonINTMARY [id number] 08:49:55* Test Item Value Reference Range Interpretation Comme nts INTACT PTH (test code = 5005) 53 PG/ML 15-65 UNLESS OTHERWISE INDICATED, ALL TESTING PERFORMED AT [facility] [address] [place] [address] TRENCH PIPE LAYER: LEONARDA SANCHEZ M.D. [place] NUMBER [id number] [facility] [place]. [id number] LIPID [id number] 05:23:59* Test Item Value Reference Range Interpretation Comme nts CHOLESTEROL (test code = 2210) 145 MG/DL <200 TRIGLYCERIDES (test code = 2232) 131 MG/DL <150 HDL CHOLESTEROL (test code = 2220) 50 MG/DL >39 CALC LDL CHOL (test code = 2237) 74 MG/DL <100 NOTE: CALCULATED LDL IS BASED ON MERYL-LEGER METHOD WHICHINCLUDES ADJUSTABLE TRIGLYCERIDE:VLDL CHOLESTEROL RATIO.THIS FACTOR VARIES BY MEASURED TRIGLYCERIDE AND NON-HDLCHOLESTEROL CONCENTRATIONS WITH INCREASED CALCULATED LDL SEENIN HIGHER TRIGLYCERIDE OR LOWER NON-HDL SPECIMENS. FOR MOREINFORMATION, SEE CLIENT ANNOUNCEMENT AT [email or web address] /CalcLDL-[email or web address] RISK RATIO LDL/HDL (test code = 2238) 1.48 RATIO <3.22 COMPREHENSIVE METABOLIC [id number] 05:23:59* Test Item Value Reference Range Interpretation Comme nts GLUCOSE (test code = 2217) 85 MG/DL 70-99 BUN (test code = 2208) 14 MG/DL 8-23 CREATININE (test code = 2214) 1.15 MG/DL 0.60-1.30 eGFR (2020 CKD-EPI) (test code = 93738) 54 ML/MIN/1.73 >60 L The NKF-ASN Taskforce recommends use of Cystatin C to confirm eGFR inadults at risk for CKD. [facility] offers eGFR with Cystatin C-Creatinineusing the 2020 CKD-EPI eGFR_creat-cystat equation (order code 3057) toincrease the accuracy of estimated GFR. For more information, contactur accounts payable coordinator or see announcement [email or web address] CALC BUN/CREAT (test code = 2234) 12 RATIO 6-28 SODIUM (test code = 2230) 140 MEQ/L 133-146 POTASSIUM (test code = 8) 4.1 MEQ/L 3.5-5.4 CHLORIDE (test code = 2214) 104 MEQ/L 95-107 CARBON DIOXIDE (test code = 2205) 25 MEQ/L 19-31 CALCIUM (test code = 2208) 9.8 MG/DL 8.5-10.5 PROTEIN, TOTAL (test code = 2228) 7.7 G/DL 6.1-8.3 ALBUMIN (test code = 2200) 4.6 G/DL 3.5-5.2 CALC GLOBULIN (test code = 2239) 3.1 G/DL 1.9-3.7 CALC A/G RATIO (test code = 2233) 1.5 RATIO 1.0-2.6 BILIRUBIN, TOTAL (test code = 2206) <0.2 MG/DL <=1.2 ALKALINE PHOSPHATASE (test code = 2203) 158 U/L 40-140 H AST (test code = 2217) 29 U/L 9-40 ALT (test code = 2218) 40 U/L 5-40 VITAMIN D, 25 [id number] 05:03:45* Test Item Value Reference Range Interpretation Comme [facility] VITAMIN D, 25 OH (test code = 4958) 36 NG/ML SEE BELOW EFFECTIVE 2022, PLEASE NOTE NEW METHODOLOGY IS ELECTROCHEMILUMINESCENCE BINDING ASSAY. NOTE: 25-HYDROXYVITAMIN D ASSAY INCLUDES 25-HYDROXYVITAMIN D2 AND D3. INTERPRETIVE RANGES PEDIATRIC (<17 YEARS) . . . . . . . . . . . NG/ML 20-100ADULT: INSUFFICIENT . . . . . . . . . . . . . . NG/ML <20 SUBOPTIMAL . . . . . . . . . . . . . . . NG/ML 20-29 OPTIMAL . . . . . . . . . . . . . . . . . NG/ML 30-100 HEMOGLOBIN [id number] 03:04:33* Test Item Value Reference Range Interpretation Comme [facility] HEMOGLOBIN A1c (test code = 24456) 5.8 % 4.2-5.6 H [employer] GUIDELINES FOR HGB A1C: PREDIABETES/INCREASED RISK . . . . . . . 5.7-6.4% DIAGNOSIS OF DIABETES . . . . . . . . . >=6.5% WITH CONFIRMATION OR APPROPRIATE SYMPTOMS NOTE: ASSAY MAY BE AFFECTED BY HEMOGLOBINOPATHIES (SICKLE CELL ANEMIA, S-C DISEASE, OTHERS) OR ARTIFICIALLY LOWERED BY DECREASED RED CELL SURVIVAL (HEMOLYTIC ANEMIAS, BLOOD LOSS, ETC.). CONSIDER ALTERNATE TESTING OR LABORATORY CONSULTATION. CBC W/AUTO DIFF WITH [id number] 02:21:39* Test Item Value Reference Range Interpretation Comme nts WBC (test code = 1001) 8.5 K/UL 3.5-11.0 RBC (test code = 1002) 4.80 M/UL 3.80-5.40 HEMOGLOBIN (test code = 1003) 12.4 G/DL 11.5-15.5 HEMATOCRIT (test code = 1004) 38.9 % 34.0-45.0 MCV (test code = 1005) 81.0 fL 80.0-99.0 MCH (test code = 1006) 25.8 PG 25.0-33.0 MCHC (test code = 1007) 31.9 G/DL 31.0-36.0 RDW (test code = 1038) 15.0 % 11.5-15.0 NEUTROPHILS (test code = 1008) 51.3 % LYMPHOCYTES (test code = 1010) 37.9 % MONOCYTES (test code = 1011) 5.3 % EOSINOPHILS (test code = 1012) 4.5 % BASOPHILS (test code = 1013) 0.6 % IMMATURE GRANULOCYTES (test code = 1036) 0.4 % NUCLEATED RBCS (test code = 1065) 0.0 /100 WBC'S See_Comment [Automated OLXa ge] The system which generated this result transmitted reference range: 0.0. The reference range was not used to interpret this result as normal/abnormal. PLATELET COUNT (test code = 1015) 289 K/UL 130-400 ABSOLUTE NEUTROPHILS (test code = 1066) 4.36 K/UL 1.50-7.50 ABSOLUTE LYMPHOCYTES (test code = 1067) 3.22 K/UL 1.00-4.00 ABSOLUTE MONOCYTES (test code = 1068) 0.45 K/UL 0.20-1.00 ABSOLUTE EOSINOPHILS (test code = 1040) 0.38 K/UL 0.00-0.50 ABSOLUTE BASOPHILS (test code = 1069) 0.05 K/UL 0.00-0.20 ABS IMMATURE GRANULOCYTES (test code = 1020) 0.03 K/UL 0.00-0.10 ABS NUCLEATED RBCS (test code = 70347) 0.00 K/UL 0.00-0.11 HEMOGLOBIN [id number] 00:00:00* Test Item Value Reference Range Interpretation Comme nts HEMOGLOBIN A1c (test code = 89008) 5.8 % Moises CovingtonLIPID [id number] 00:00:00* Test Item Value Reference Range Interpretation Comme nts CHOLESTEROL (test code = 2210) 145 MG/DL TRIGLYCERIDES (test code = 2232) 131 MG/DL HDL CHOLESTEROL (test code = 2220) 50 MG/DL CALC LDL CHOL (test code = 2237) 74 MG/DL RISK RATIO LDL/HDL (test cod e = 2238) 1.48 RATIO Moises Emerson AdriaCOMPREHENSIVE METABOLIC [id number] 00:00:00* Test Item Value Reference Range Interpretation Comme nts GLUCOSE (test code = 2217) 85 MG/DL BUN (test code = 2208) 14 MG/DL CREATININE (test code = 2214) 1.15 MG/DL eGFR (2020 CKD-EPI) (test co de = 50107) 54 ML/MIN/1.73 CALC BUN/CREAT (test code = 2235) 12 RATIO SODIUM (test code = 2231) 140 MEQ/L POTASSIUM (test code = 2228) 4.1 MEQ/L CHLORIDE (test code = 2215) 104 MEQ/L CARBON DIOXIDE (test code = 2206) 25 MEQ/L CALCIUM (test code = 2209) 9.8 MG/DL PROTEIN, TOTAL (test code = 2229) 7.7 G/DL ALBUMIN (test code = 2201) 4.6 G/DL CALC GLOBULIN (test code = 2240) 3.1 G/DL CALC A/G RATIO (test code = 2234) 1.5 RATIO BILIRUBIN, TOTAL (test code = 2207) <0.2 MG/DL ALKALINE PHOSPHATASE (test code = 2204) 158 U/L AST (test code = 2218) 29 U/L ALT (test code = 2219) 40 U/L Moises Emerson AdriaVITAMIN D, 25 [id number] 00:00:00* Test Item Value Reference Range Interpretation Comme nts VITAMIN D, 25 OH (test code = 4958) 36 NG/ML Moises CovingtonINTACT [id number] 00:00:00* Test Item Value Reference Range Interpretation Comme nts INTACT PTH (test code = 5005) 53 PG/ML Moises CovingtonCBC W/AUTO [id number] 00:00:00* Test Item Value Reference Range Interpretation Comme nts WBC (test code = 1001) 8.5 K/UL RBC (test code = 1002) 4.80 M/UL HEMOGLOBIN (test code = 1003) 12.4 G/DL HEMATOCRIT (test code = 1004) 38.9 % MCV (test code = 1005) 81.0 fL MCH (test code = 1006) 25.8 PG MCHC (test code = 1007) 31.9 G/DL RDW (test code = 1038) 15.0 % NEUTROPHILS (test code = 1008) 51.3 % LYMPHOCYTES (test code = 1010) 37.9 % MONOCYTES (test code = 1011) 5.3 % EOSINOPHILS (test code = 1012) 4.5 % BASOPHILS (test code = 1013) 0.6 % IMMATURE GRANULOCYTES (test code = 1036) 0.4 % NUCLEATED RBCS (test code = 1065) 0.0 /100WBC'S PLATELET COUNT (test code = 1015) 289 K/UL ABSOLUTE NEUTROPHILS (test c ode = 1066) 4.36 K/UL ABSOLUTE LYMPHOCYTES (test c ode = 1067) 3.22 K/UL ABSOLUTE MONOCYTES (test cod e = 1068) 0.45 K/UL ABSOLUTE EOSINOPHILS (test c ode = 1040) 0.38 K/UL ABSOLUTE BASOPHILS (test cod e = 1069) 0.05 K/UL ABS IMMATURE GRANULOCYTES (t est code = 1020) 0.03 K/UL ABS NUCLEATED RBCS (test cod e = 14111) 0.00 K/UL Moises CovingtonHEMOGLOBIN [id number] 00:00:00* Test Item Value Reference Range Interpretation Comme nts HEMOGLOBIN A1c (test code = 44970) 5.8 % Moises CovingtonLIPID [id number] 00:00:00* Test Item Value Reference Range Interpretation Comme nts CHOLESTEROL (test code = 2210) 145 MG/DL TRIGLYCERIDES (test code = 2232) 131 MG/DL HDL CHOLESTEROL (test code = 2220) 50 MG/DL CALC LDL CHOL (test code = 2237) 74 MG/DL RISK RATIO LDL/HDL (test cod e = 2238) 1.48 RATIO Moises CovingtonCOMPREHENSIVE METABOLIC [id number] 00:00:00* Test Item Value Reference Range Interpretation Comme nts GLUCOSE (test code = 2217) 85 MG/DL BUN (test code = 2208) 14 MG/DL CREATININE (test code = 2214) 1.15 MG/DL eGFR (2020 CKD-EPI) (test co de = 46446) 54 ML/MIN/1.73 CALC BUN/CREAT (test code = 2235) 12 RATIO SODIUM (test code = 2231) 140 MEQ/L POTASSIUM (test code = 2228) 4.1 MEQ/L CHLORIDE (test code = 2215) 104 MEQ/L CARBON DIOXIDE (test code = 2206) 25 MEQ/L CALCIUM (test code = 2209) 9.8 MG/DL PROTEIN, TOTAL (test code = 2229) 7.7 G/DL ALBUMIN (test code = 2201) 4.6 G/DL CALC GLOBULIN (test code = 2240) 3.1 G/DL CALC A/G RATIO (test code = 2234) 1.5 RATIO BILIRUBIN, TOTAL (test code = 2207) <0.2 MG/DL ALKALINE PHOSPHATASE (test code = 2204) 158 U/L AST (test code = 2218) 29 U/L ALT (test code = 2219) 40 U/L Moises CovingtonVITAMIN D, 25 [id number] 00:00:00* Test Item Value Reference Range Interpretation Comme nts VITAMIN D, 25 OH (test code = 4958) 36 NG/ML Moises CovingtonINTACT [id number] 00:00:00* Test Item Value Reference Range Interpretation Comme nts INTACT PTH (test code = 5005) 53 PG/ML Moises CovingtonCBC W/AUTO [id number] 00:00:00* Test Item Value Reference Range Interpretation Comme nts WBC (test code = 1001) 8.5 K/UL RBC (test code = 1002) 4.80 M/UL HEMOGLOBIN (test code = 1003) 12.4 G/DL HEMATOCRIT (test code = 1004) 38.9 % MCV (test code = 1005) 81.0 fL MCH (test code = 1006) 25.8 PG MCHC (test code = 1007) 31.9 G/DL RDW (test code = 1038) 15.0 % NEUTROPHILS (test code = 1008) 51.3 % LYMPHOCYTES (test code = 1010) 37.9 % MONOCYTES (test code = 1011) 5.3 % EOSINOPHILS (test code = 1012) 4.5 % BASOPHILS (test code = 1013) 0.6 % IMMATURE GRANULOCYTES (test code = 1036) 0.4 % NUCLEATED RBCS (test code = 1065) 0.0 /100WBC'S PLATELET COUNT (test code = 1015) 289 K/UL ABSOLUTE NEUTROPHILS (test c ode = 1066) 4.36 K/UL ABSOLUTE LYMPHOCYTES (test c ode = 1067) 3.22 K/UL ABSOLUTE MONOCYTES (test cod e = 1068) 0.45 K/UL ABSOLUTE EOSINOPHILS (test c ode = 1040) 0.38 K/UL ABSOLUTE BASOPHILS (test cod e = 1069) 0.05 K/UL ABS IMMATURE GRANULOCYTES (t est code = 1020) 0.03 K/UL ABS NUCLEATED RBCS (test cod e = 43661) 0.00 K/UL Moises CovingtonHEMOGLOBIN [id number] 00:00:00* Test Item Value Reference Range Interpretation Comme nts HEMOGLOBIN A1c (test code = 37362) 5.8 % Moises CovingtonLIPID [id number] 00:00:00* Test Item Value Reference Range Interpretation Comme nts CHOLESTEROL (test code = 2210) 145 MG/DL TRIGLYCERIDES (test code = 2232) 131 MG/DL HDL CHOLESTEROL (test code = 2220) 50 MG/DL CALC LDL CHOL (test code = 2237) 74 MG/DL RISK RATIO LDL/HDL (test cod e = 2238) 1.48 RATIO Moises CovingtonCOMPREHENSIVE METABOLIC [id number] 00:00:00* Test Item Value Reference Range Interpretation Comme nts GLUCOSE (test code = 2217) 85 MG/DL BUN (test code = 2208) 14 MG/DL CREATININE (test code = 2214) 1.15 MG/DL eGFR (2020 CKD-EPI) (test co de = 64146) 54 ML/MIN/1.73 CALC BUN/CREAT (test code = 2235) 12 RATIO SODIUM (test code = 2231) 140 MEQ/L POTASSIUM (test code = 2228) 4.1 MEQ/L CHLORIDE (test code = 2215) 104 MEQ/L CARBON DIOXIDE (test code = 2206) 25 MEQ/L CALCIUM (test code = 2209) 9.8 MG/DL PROTEIN, TOTAL (test code = 2229) 7.7 G/DL ALBUMIN (test code = 2201) 4.6 G/DL CALC GLOBULIN (test code = 2240) 3.1 G/DL CALC A/G RATIO (test code = 2234) 1.5 RATIO BILIRUBIN, TOTAL (test code = 2207) <0.2 MG/DL ALKALINE PHOSPHATASE (test code = 2204) 158 U/L AST (test code = 2218) 29 U/L ALT (test code = 2219) 40 U/L Moises CovingtonVITAMIN D, 25 [id number] 00:00:00* Test Item Value Reference Range Interpretation Comme [facility] VITAMIN D, 25 OH (test code = 4958) 36 NG/ML Moises CovingtonINTACT [id number] 00:00:00* Test Item Value Reference Range Interpretation Comme [facility] INTACT PTH (test code = 5005) 53 PG/ML Moises CovingtonCBC W/AUTO [id number] 00:00:00* Test Item Value Reference Range Interpretation Comme nts WBC (test code = 1001) 8.5 K/UL RBC (test code = 1002) 4.80 M/UL HEMOGLOBIN (test code = 1003) 12.4 G/DL HEMATOCRIT (test code = 1004) 38.9 % MCV (test code = 1005) 81.0 fL MCH (test code = 1006) 25.8 PG MCHC (test code = 1007) 31.9 G/DL RDW (test code = 1038) 15.0 % NEUTROPHILS (test code = 1008) 51.3 % LYMPHOCYTES (test code = 1010) 37.9 % MONOCYTES (test code = 1011) 5.3 % EOSINOPHILS (test code = 1012) 4.5 % BASOPHILS (test code = 1013) 0.6 % IMMATURE GRANULOCYTES (test code = 1036) 0.4 % NUCLEATED RBCS (test code = 1065) 0.0 /100WBC'S PLATELET COUNT (test code = 1015) 289 K/UL ABSOLUTE NEUTROPHILS (test c ode = 1066) 4.36 K/UL ABSOLUTE LYMPHOCYTES (test c ode = 1067) 3.22 K/UL ABSOLUTE MONOCYTES (test cod e = 1068) 0.45 K/UL ABSOLUTE EOSINOPHILS (test c ode = 1040) 0.38 K/UL ABSOLUTE BASOPHILS (test cod e = 1069) 0.05 K/UL ABS IMMATURE GRANULOCYTES (t est code = 1020) 0.03 K/UL ABS NUCLEATED RBCS (test cod e = 94461) 0.00 K/UL Moises CovingtonHEMOGLOBIN [id number] 00:00:00* Test Item Value Reference Range Interpretation Comme nts HEMOGLOBIN A1c (test code = 38029) 5.8 % Moises CovingtonLIPID [id number] 00:00:00* Test Item Value Reference Range Interpretation Comme nts CHOLESTEROL (test code = 2210) 145 MG/DL TRIGLYCERIDES (test code = 2232) 131 MG/DL HDL CHOLESTEROL (test code = 2220) 50 MG/DL CALC LDL CHOL (test code = 2237) 74 MG/DL RISK RATIO LDL/HDL (test cod e = 2238) 1.48 RATIO Moises CovingtonCOMPREHENSIVE METABOLIC [id number] 00:00:00* Test Item Value Reference Range Interpretation Comme nts GLUCOSE (test code = 2217) 85 MG/DL BUN (test code = 2208) 14 MG/DL CREATININE (test code = 2214) 1.15 MG/DL eGFR (2020 CKD-EPI) (test co de = 05534) 54 ML/MIN/1.73 CALC BUN/CREAT (test code = 2235) 12 RATIO SODIUM (test code = 2231) 140 MEQ/L POTASSIUM (test code = 2228) 4.1 MEQ/L CHLORIDE (test code = 2215) 104 MEQ/L CARBON DIOXIDE (test code = 2206) 25 MEQ/L CALCIUM (test code = 2209) 9.8 MG/DL PROTEIN, TOTAL (test code = 2229) 7.7 G/DL ALBUMIN (test code = 2201) 4.6 G/DL CALC GLOBULIN (test code = 2240) 3.1 G/DL CALC A/G RATIO (test code = 2234) 1.5 RATIO BILIRUBIN, TOTAL (test code = 2207) <0.2 MG/DL ALKALINE PHOSPHATASE (test code = 2204) 158 U/L AST (test code = 2218) 29 U/L ALT (test code = 2219) 40 U/L Moises CovingtonVITAMIN D, 25 [id number] 00:00:00* Test Item Value Reference Range Interpretation Comme nts VITAMIN D, 25 OH (test code = 4958) 36 NG/ML Moises CovingtonINTACT [id number] 00:00:00* Test Item Value Reference Range Interpretation Comme nts INTACT PTH (test code = 5005) 53 PG/ML Moises CovingtonCBC W/AUTO [id number] 00:00:00* Test Item Value Reference Range Interpretation Comme nts WBC (test code = 1001) 8.5 K/UL RBC (test code = 1002) 4.80 M/UL HEMOGLOBIN (test code = 1003) 12.4 G/DL HEMATOCRIT (test code = 1004) 38.9 % MCV (test code = 1005) 81.0 fL MCH (test code = 1006) 25.8 PG MCHC (test code = 1007) 31.9 G/DL RDW (test code = 1038) 15.0 % NEUTROPHILS (test code = 1008) 51.3 % LYMPHOCYTES (test code = 1010) 37.9 % MONOCYTES (test code = 1011) 5.3 % EOSINOPHILS (test code = 1012) 4.5 % BASOPHILS (test code = 1013) 0.6 % IMMATURE GRANULOCYTES (test code = 1036) 0.4 % NUCLEATED RBCS (test code = 1065) 0.0 /100WBC'S PLATELET COUNT (test code = 1015) 289 K/UL ABSOLUTE NEUTROPHILS (test c ode = 1066) 4.36 K/UL ABSOLUTE LYMPHOCYTES (test c ode = 1067) 3.22 K/UL ABSOLUTE MONOCYTES (test cod e = 1068) 0.45 K/UL ABSOLUTE EOSINOPHILS (test c ode = 1040) 0.38 K/UL ABSOLUTE BASOPHILS (test cod e = 1069) 0.05 K/UL ABS IMMATURE GRANULOCYTES (t est code = 1020) 0.03 K/UL ABS NUCLEATED RBCS (test cod e = 94540) 0.00 K/UL Moises CovingtonHEMOGLOBIN [id number] 00:00:00* Test Item Value Reference Range Interpretation Comme donal HEMOGLOBIN A1c (test code = 43471) 5.8 % Moises CovingtonLIPID [id number] 00:00:00* Test Item Value Reference Range Interpretation Comme nts CHOLESTEROL (test code = 2210) 145 MG/DL TRIGLYCERIDES (test code = 2232) 131 MG/DL HDL CHOLESTEROL (test code = 2220) 50 MG/DL CALC LDL CHOL (test code = 2237) 74 MG/DL RISK RATIO LDL/HDL (test cod e = 2238) 1.48 RATIO Moises CovingtonCOMPREHENSIVE METABOLIC [id number] 00:00:00* Test Item Value Reference Range Interpretation Comme nts GLUCOSE (test code = 2217) 85 MG/DL BUN (test code = 2208) 14 MG/DL CREATININE (test code = 2214) 1.15 MG/DL eGFR (2020 CKD-EPI) (test co de = 53820) 54 ML/MIN/1.73 CALC BUN/CREAT (test code = 2235) 12 RATIO SODIUM (test code = 2231) 140 MEQ/L POTASSIUM (test code = 2228) 4.1 MEQ/L CHLORIDE (test code = 2215) 104 MEQ/L CARBON DIOXIDE (test code = 2206) 25 MEQ/L CALCIUM (test code = 2209) 9.8 MG/DL PROTEIN, TOTAL (test code = 2229) 7.7 G/DL ALBUMIN (test code = 2201) 4.6 G/DL CALC GLOBULIN (test code = 2240) 3.1 G/DL CALC A/G RATIO (test code = 2234) 1.5 RATIO BILIRUBIN, TOTAL (test code = 2207) <0.2 MG/DL ALKALINE PHOSPHATASE (test code = 2204) 158 U/L AST (test code = 2218) 29 U/L ALT (test code = 2219) 40 U/L Moises CovingtonVITAMIN D, 25 [id number] 00:00:00* Test Item Value Reference Range Interpretation Comme donal VITAMIN D, 25 OH (test code = 4958) 36 NG/ML Moises CovingtonINTACT [id number] 00:00:00* Test Item Value Reference Range Interpretation Comme nts INTACT PTH (test code = 5005) 53 PG/ML Moises CovingtonCBC W/AUTO [id number] 00:00:00* Test Item Value Reference Range Interpretation Comme nts WBC (test code = 1001) 8.5 K/UL RBC (test code = 1002) 4.80 M/UL HEMOGLOBIN (test code = 1003) 12.4 G/DL HEMATOCRIT (test code = 1004) 38.9 % MCV (test code = 1005) 81.0 fL MCH (test code = 1006) 25.8 PG MCHC (test code = 1007) 31.9 G/DL RDW (test code = 1038) 15.0 % NEUTROPHILS (test code = 1008) 51.3 % LYMPHOCYTES (test code = 1010) 37.9 % MONOCYTES (test code = 1011) 5.3 % EOSINOPHILS (test code = 1012) 4.5 % BASOPHILS (test code = 1013) 0.6 % IMMATURE GRANULOCYTES (test code = 1036) 0.4 % NUCLEATED RBCS (test code = 1065) 0.0 /100WBC'S PLATELET COUNT (test code = 1015) 289 K/UL ABSOLUTE NEUTROPHILS (test c ode = 1066) 4.36 K/UL ABSOLUTE LYMPHOCYTES (test c ode = 1067) 3.22 K/UL ABSOLUTE MONOCYTES (test cod e = 1068) 0.45 K/UL ABSOLUTE EOSINOPHILS (test c ode = 1040) 0.38 K/UL ABSOLUTE BASOPHILS (test cod e = 1069) 0.05 K/UL ABS IMMATURE GRANULOCYTES (t est code = 1020) 0.03 K/UL ABS NUCLEATED RBCS (test cod e = 18268) 0.00 K/UL Moises CovingtonHEMOGLOBIN [id number] 00:00:00* Test Item Value Reference Range Interpretation Comme nts HEMOGLOBIN A1c (test code = 25091) 5.8 % Moises CovingtonLIPID [id number] 00:00:00* Test Item Value Reference Range Interpretation Comme nts CHOLESTEROL (test code = 2210) 145 MG/DL TRIGLYCERIDES (test code = 2232) 131 MG/DL HDL CHOLESTEROL (test code = 2220) 50 MG/DL CALC LDL CHOL (test code = 2237) 74 MG/DL RISK RATIO LDL/HDL (test cod e = 2238) 1.48 RATIO Moises CovingtonCOMPREHENSIVE METABOLIC [id number] 00:00:00* Test Item Value Reference Range Interpretation Comme nts GLUCOSE (test code = 2217) 85 MG/DL BUN (test code = 2208) 14 MG/DL CREATININE (test code = 2214) 1.15 MG/DL eGFR (2020 CKD-EPI) (test co de = 93282) 54 ML/MIN/1.73 CALC BUN/CREAT (test code = 2235) 12 RATIO SODIUM (test code = 2231) 140 MEQ/L POTASSIUM (test code = 2228) 4.1 MEQ/L CHLORIDE (test code = 2215) 104 MEQ/L CARBON DIOXIDE (test code = 2206) 25 MEQ/L CALCIUM (test code = 2209) 9.8 MG/DL PROTEIN, TOTAL (test code = 2229) 7.7 G/DL ALBUMIN (test code = 2201) 4.6 G/DL CALC GLOBULIN (test code = 2240) 3.1 G/DL CALC A/G RATIO (test code = 2234) 1.5 RATIO BILIRUBIN, TOTAL (test code = 2207) <0.2 MG/DL ALKALINE PHOSPHATASE (test code = 2204) 158 U/L AST (test code = 2218) 29 U/L ALT (test code = 2219) 40 U/L Moises CovingtonVITAMIN D, 25 [id number] 00:00:00* Test Item Value Reference Range Interpretation Comme [facility] VITAMIN D, 25 OH (test code = 4958) 36 NG/ML Moises CovingtonINTACT [id number] 00:00:00* Test Item Value Reference Range Interpretation Comme nts INTACT PTH (test code = 5005) 53 PG/ML Moises CovingtonCBC W/AUTO [id number] 00:00:00* Test Item Value Reference Range Interpretation Comme nts WBC (test code = 1001) 8.5 K/UL RBC (test code = 1002) 4.80 M/UL HEMOGLOBIN (test code = 1003) 12.4 G/DL HEMATOCRIT (test code = 1004) 38.9 % MCV (test code = 1005) 81.0 fL MCH (test code = 1006) 25.8 PG MCHC (test code = 1007) 31.9 G/DL RDW (test code = 1038) 15.0 % NEUTROPHILS (test code = 1008) 51.3 % LYMPHOCYTES (test code = 1010) 37.9 % MONOCYTES (test code = 1011) 5.3 % EOSINOPHILS (test code = 1012) 4.5 % BASOPHILS (test code = 1013) 0.6 % IMMATURE GRANULOCYTES (test code = 1036) 0.4 % NUCLEATED RBCS (test code = 1065) 0.0 /100WBC'S PLATELET COUNT (test code = 1015) 289 K/UL ABSOLUTE NEUTROPHILS (test c ode = 1066) 4.36 K/UL ABSOLUTE LYMPHOCYTES (test c ode = 1067) 3.22 K/UL ABSOLUTE MONOCYTES (test cod e = 1068) 0.45 K/UL ABSOLUTE EOSINOPHILS (test c ode = 1040) 0.38 K/UL ABSOLUTE BASOPHILS (test cod e = 1069) 0.05 K/UL ABS IMMATURE GRANULOCYTES (t est code = 1020) 0.03 K/UL ABS NUCLEATED RBCS (test cod e = 29517) 0.00 K/UL Moises CovingtonHEMOGLOBIN [id number] 00:00:00* Test Item Value Reference Range Interpretation Comme nts HEMOGLOBIN A1c (test code = 55196) 5.8 % Moises CovingtonLIPID [id number] 00:00:00* Test Item Value Reference Range Interpretation Comme nts CHOLESTEROL (test code = 2210) 145 MG/DL TRIGLYCERIDES (test code = 2232) 131 MG/DL HDL CHOLESTEROL (test code = 2220) 50 MG/DL CALC LDL CHOL (test code = 2237) 74 MG/DL RISK RATIO LDL/HDL (test cod e = 2238) 1.48 RATIO Moises CovingtonCOMPREHENSIVE METABOLIC [id number] 00:00:00* Test Item Value Reference Range Interpretation Comme nts GLUCOSE (test code = 2217) 85 MG/DL BUN (test code = 2208) 14 MG/DL CREATININE (test code = 2214) 1.15 MG/DL eGFR (2020 CKD-EPI) (test co de = 46995) 54 ML/MIN/1.73 CALC BUN/CREAT (test code = 2235) 12 RATIO SODIUM (test code = 2231) 140 MEQ/L POTASSIUM (test code = 2228) 4.1 MEQ/L CHLORIDE (test code = 2215) 104 MEQ/L CARBON DIOXIDE (test code = 2206) 25 MEQ/L CALCIUM (test code = 2209) 9.8 MG/DL PROTEIN, TOTAL (test code = 2229) 7.7 G/DL ALBUMIN (test code = 2201) 4.6 G/DL CALC GLOBULIN (test code = 2240) 3.1 G/DL CALC A/G RATIO (test code = 2234) 1.5 RATIO BILIRUBIN, TOTAL (test code = 2207) <0.2 MG/DL ALKALINE PHOSPHATASE (test code = 220) 158 U/L AST (test code = 221) 29 U/L ALT (test code = 2219) 40 U/L Moises CovingtonVITAMIN D, 25 [id number] 00:00:00* Test Item Value Reference Range Interpretation Comme nts VITAMIN D, 25 OH (test code = 4958) 36 NG/ML Moises CovingtonINTACT [id number] 00:00:00* Test Item Value Reference Range Interpretation Comme nts INTACT PTH (test code = 5005) 53 PG/ML Moises CovingtonCBC W/AUTO [id number] 00:00:00* Test Item Value Reference Range Interpretation Comme nts WBC (test code = 1001) 8.5 K/UL RBC (test code = 1002) 4.80 M/UL HEMOGLOBIN (test code = 1003) 12.4 G/DL HEMATOCRIT (test code = 1004) 38.9 % MCV (test code = 1005) 81.0 fL MCH (test code = 1006) 25.8 PG MCHC (test code = 1007) 31.9 G/DL RDW (test code = 1038) 15.0 % NEUTROPHILS (test code = 1008) 51.3 % LYMPHOCYTES (test code = 1010) 37.9 % MONOCYTES (test code = 1011) 5.3 % EOSINOPHILS (test code = 1012) 4.5 % BASOPHILS (test code = 1013) 0.6 % IMMATURE GRANULOCYTES (test code = 1036) 0.4 % NUCLEATED RBCS (test code = 1065) 0.0 /100WBC'S PLATELET COUNT (test code = 1015) 289 K/UL ABSOLUTE NEUTROPHILS (test c ode = 1066) 4.36 K/UL ABSOLUTE LYMPHOCYTES (test c ode = 1067) 3.22 K/UL ABSOLUTE MONOCYTES (test cod e = 1068) 0.45 K/UL ABSOLUTE EOSINOPHILS (test c ode = 1040) 0.38 K/UL ABSOLUTE BASOPHILS (test cod e = 1069) 0.05 K/UL ABS IMMATURE GRANULOCYTES (t est code = 1020) 0.03 K/UL ABS NUCLEATED RBCS (test cod e = 51383) 0.00 K/UL Moises CovingtonHEMOGLOBIN [id number] 00:00:00* Test Item Value Reference Range Interpretation Comme nts HEMOGLOBIN A1c (test code = 42483) 5.8 % Moises CovingtonLIPID [id number] 00:00:00* Test Item Value Reference Range Interpretation Comme nts CHOLESTEROL (test code = 2210) 145 MG/DL TRIGLYCERIDES (test code = 2232) 131 MG/DL HDL CHOLESTEROL (test code = 2220) 50 MG/DL CALC LDL CHOL (test code = 2237) 74 MG/DL RISK RATIO LDL/HDL (test cod e = 2238) 1.48 RATIO Moises CovingtonCOMPREHENSIVE METABOLIC [id number] 00:00:00* Test Item Value Reference Range Interpretation Comme nts GLUCOSE (test code = 2217) 85 MG/DL BUN (test code = 2208) 14 MG/DL CREATININE (test code = 2214) 1.15 MG/DL eGFR (2020 CKD-EPI) (test co de = 90990) 54 ML/MIN/1.73 CALC BUN/CREAT (test code = 2235) 12 RATIO SODIUM (test code = 2231) 140 MEQ/L POTASSIUM (test code = 2228) 4.1 MEQ/L CHLORIDE (test code = 2215) 104 MEQ/L CARBON DIOXIDE (test code = 2206) 25 MEQ/L CALCIUM (test code = 2209) 9.8 MG/DL PROTEIN, TOTAL (test code = 2229) 7.7 G/DL ALBUMIN (test code = 2201) 4.6 G/DL CALC GLOBULIN (test code = 2240) 3.1 G/DL CALC A/G RATIO (test code = 2234) 1.5 RATIO BILIRUBIN, TOTAL (test code = 2207) <0.2 MG/DL ALKALINE PHOSPHATASE (test code = 2204) 158 U/L AST (test code = 2218) 29 U/L ALT (test code = 2219) 40 U/L Moises CovingtonVITAMIN D, 25 [id number] 00:00:00* Test Item Value Reference Range Interpretation Comme nts VITAMIN D, 25 OH (test code = 4958) 36 NG/ML Moises CovingtonINTACT [id number] 00:00:00* Test Item Value Reference Range Interpretation Comme nts INTACT PTH (test code = 5005) 53 PG/ML Moises CovingtonCBC W/AUTO [id number] 00:00:00* Test Item Value Reference Range Interpretation Comme nts WBC (test code = 1001) 8.5 K/UL RBC (test code = 1002) 4.80 M/UL HEMOGLOBIN (test code = 1003) 12.4 G/DL HEMATOCRIT (test code = 1004) 38.9 % MCV (test code = 1005) 81.0 fL MCH (test code = 1006) 25.8 PG MCHC (test code = 1007) 31.9 G/DL RDW (test code = 1038) 15.0 % NEUTROPHILS (test code = 1008) 51.3 % LYMPHOCYTES (test code = 1010) 37.9 % MONOCYTES (test code = 1011) 5.3 % EOSINOPHILS (test code = 1012) 4.5 % BASOPHILS (test code = 1013) 0.6 % IMMATURE GRANULOCYTES (test code = 1036) 0.4 % NUCLEATED RBCS (test code = 1065) 0.0 /100WBC'S PLATELET COUNT (test code = 1015) 289 K/UL ABSOLUTE NEUTROPHILS (test c ode = 1066) 4.36 K/UL ABSOLUTE LYMPHOCYTES (test c ode = 1067) 3.22 K/UL ABSOLUTE MONOCYTES (test cod e = 1068) 0.45 K/UL ABSOLUTE EOSINOPHILS (test c ode = 1040) 0.38 K/UL ABSOLUTE BASOPHILS (test cod e = 1069) 0.05 K/UL ABS IMMATURE GRANULOCYTES (t est code = 1020) 0.03 K/UL ABS NUCLEATED RBCS (test cod e = 28123) 0.00 K/UL Moises CovingtonHEMOGLOBIN [id number] 00:00:00* Test Item Value Reference Range Interpretation Comme donal HEMOGLOBIN A1c (test code = 41014) 5.8 % Moises CovingtonLIPID [id number] 00:00:00* Test Item Value Reference Range Interpretation Comme nts CHOLESTEROL (test code = 2210) 145 MG/DL TRIGLYCERIDES (test code = 2232) 131 MG/DL HDL CHOLESTEROL (test code = 2220) 50 MG/DL CALC LDL CHOL (test code = 2237) 74 MG/DL RISK RATIO LDL/HDL (test cod e = 2238) 1.48 RATIO Moises CovingtonCOMPREHENSIVE METABOLIC [id number] 00:00:00* Test Item Value Reference Range Interpretation Comme nts GLUCOSE (test code = 2217) 85 MG/DL BUN (test code = 2208) 14 MG/DL CREATININE (test code = 2214) 1.15 MG/DL eGFR (2020 CKD-EPI) (test co de = 58466) 54 ML/MIN/1.73 CALC BUN/CREAT (test code = 2235) 12 RATIO SODIUM (test code = 2231) 140 MEQ/L POTASSIUM (test code = 2228) 4.1 MEQ/L CHLORIDE (test code = 2215) 104 MEQ/L CARBON DIOXIDE (test code = 2206) 25 MEQ/L CALCIUM (test code = 2209) 9.8 MG/DL PROTEIN, TOTAL (test code = 2229) 7.7 G/DL ALBUMIN (test code = 2201) 4.6 G/DL CALC GLOBULIN (test code = 2240) 3.1 G/DL CALC A/G RATIO (test code = 2234) 1.5 RATIO BILIRUBIN, TOTAL (test code = 2207) <0.2 MG/DL ALKALINE PHOSPHATASE (test code = 2204) 158 U/L AST (test code = 2218) 29 U/L ALT (test code = 2219) 40 U/L Moises CovingtonVITAMIN D, 25 [id number] 00:00:00* Test Item Value Reference Range Interpretation Comme donal VITAMIN D, 25 OH (test code = 4958) 36 NG/ML Moises CovingtonINTACT [id number] 00:00:00* Test Item Value Reference Range Interpretation Comme donal INTACT PTH (test code = 5005) 53 PG/ML Moises CovingtonCBC W/AUTO [id number] 00:00:00* Test Item Value Reference Range Interpretation Comme nts WBC (test code = 1001) 8.5 K/UL RBC (test code = 1002) 4.80 M/UL HEMOGLOBIN (test code = 1003) 12.4 G/DL HEMATOCRIT (test code = 1004) 38.9 % MCV (test code = 1005) 81.0 fL MCH (test code = 1006) 25.8 PG MCHC (test code = 1007) 31.9 G/DL RDW (test code = 1038) 15.0 % NEUTROPHILS (test code = 1008) 51.3 % LYMPHOCYTES (test code = 1010) 37.9 % MONOCYTES (test code = 1011) 5.3 % EOSINOPHILS (test code = 1012) 4.5 % BASOPHILS (test code = 1013) 0.6 % IMMATURE GRANULOCYTES (test code = 1036) 0.4 % NUCLEATED RBCS (test code = 1065) 0.0 /100WBC'S PLATELET COUNT (test code = 1015) 289 K/UL ABSOLUTE NEUTROPHILS (test c ode = 1066) 4.36 K/UL ABSOLUTE LYMPHOCYTES (test c ode = 1067) 3.22 K/UL ABSOLUTE MONOCYTES (test cod e = 1068) 0.45 K/UL ABSOLUTE EOSINOPHILS (test c ode = 1040) 0.38 K/UL ABSOLUTE BASOPHILS (test cod e = 1069) 0.05 K/UL ABS IMMATURE GRANULOCYTES (t est code = 1020) 0.03 K/UL ABS NUCLEATED RBCS (test cod e = 31124) 0.00 K/UL Moises CovingtonHEMOGLOBIN [id number] 00:00:00* Test Item Value Reference Range Interpretation Comme nts HEMOGLOBIN A1c (test code = 80855) 5.8 % Moises CovingtonLIPID [id number] 00:00:00* Test Item Value Reference Range Interpretation Comme nts CHOLESTEROL (test code = 2210) 145 MG/DL TRIGLYCERIDES (test code = 2232) 131 MG/DL HDL CHOLESTEROL (test code = 2220) 50 MG/DL CALC LDL CHOL (test code = 2237) 74 MG/DL RISK RATIO LDL/HDL (test cod e = 2238) 1.48 RATIO Moises CovingtonCOMPREHENSIVE METABOLIC [id number] 00:00:00* Test Item Value Reference Range Interpretation Comme nts GLUCOSE (test code = 2217) 85 MG/DL BUN (test code = 2208) 14 MG/DL CREATININE (test code = 2214) 1.15 MG/DL eGFR (2020 CKD-EPI) (test co de = 72708) 54 ML/MIN/1.73 CALC BUN/CREAT (test code = 2235) 12 RATIO SODIUM (test code = 2231) 140 MEQ/L POTASSIUM (test code = 2228) 4.1 MEQ/L CHLORIDE (test code = 2215) 104 MEQ/L CARBON DIOXIDE (test code = 2206) 25 MEQ/L CALCIUM (test code = 2209) 9.8 MG/DL PROTEIN, TOTAL (test code = 2229) 7.7 G/DL ALBUMIN (test code = 2201) 4.6 G/DL CALC GLOBULIN (test code = 2240) 3.1 G/DL CALC A/G RATIO (test code = 2234) 1.5 RATIO BILIRUBIN, TOTAL (test code = 2207) <0.2 MG/DL ALKALINE PHOSPHATASE (test code = 2204) 158 U/L AST (test code = 2218) 29 U/L ALT (test code = 2219) 40 U/L Moises CovingtonVITAMIN D, 25 [id number] 00:00:00* Test Item Value Reference Range Interpretation Comme [facility] VITAMIN D, 25 OH (test code = 4958) 36 NG/ML Moises CovingtonINTACT [id number] 00:00:00* Test Item Value Reference Range Interpretation Comme nts INTACT PTH (test code = 5005) 53 PG/ML Moises CovingtonCBC W/AUTO [id number] 00:00:00* Test Item Value Reference Range Interpretation Comme nts WBC (test code = 1001) 8.5 K/UL RBC (test code = 1002) 4.80 M/UL HEMOGLOBIN (test code = 1003) 12.4 G/DL HEMATOCRIT (test code = 1004) 38.9 % MCV (test code = 1005) 81.0 fL MCH (test code = 1006) 25.8 PG MCHC (test code = 1007) 31.9 G/DL RDW (test code = 1038) 15.0 % NEUTROPHILS (test code = 1008) 51.3 % LYMPHOCYTES (test code = 1010) 37.9 % MONOCYTES (test code = 1011) 5.3 % EOSINOPHILS (test code = 1012) 4.5 % BASOPHILS (test code = 1013) 0.6 % IMMATURE GRANULOCYTES (test code = 1036) 0.4 % NUCLEATED RBCS (test code = 1065) 0.0 /100WBC'S PLATELET COUNT (test code = 1015) 289 K/UL ABSOLUTE NEUTROPHILS (test c ode = 1066) 4.36 K/UL ABSOLUTE LYMPHOCYTES (test c ode = 1067) 3.22 K/UL ABSOLUTE MONOCYTES (test cod e = 1068) 0.45 K/UL ABSOLUTE EOSINOPHILS (test c ode = 1040) 0.38 K/UL ABSOLUTE BASOPHILS (test cod e = 1069) 0.05 K/UL ABS IMMATURE GRANULOCYTES (t est code = 1020) 0.03 K/UL ABS NUCLEATED RBCS (test cod e = 24104) 0.00 K/UL Moises CovingtonHEMOGLOBIN [id number] 00:00:00* Test Item Value Reference Range Interpretation Comme nts HEMOGLOBIN A1c (test code = 18201) 5.8 % Moises CovingtonLIPID [id number] 00:00:00* Test Item Value Reference Range Interpretation Comme nts CHOLESTEROL (test code = 2210) 145 MG/DL TRIGLYCERIDES (test code = 2232) 131 MG/DL HDL CHOLESTEROL (test code = 2220) 50 MG/DL CALC LDL CHOL (test code = 2237) 74 MG/DL RISK RATIO LDL/HDL (test cod e = 2238) 1.48 RATIO Moises CovingtonCOMPREHENSIVE METABOLIC [id number] 00:00:00* Test Item Value Reference Range Interpretation Comme nts GLUCOSE (test code = 2217) 85 MG/DL BUN (test code = 2208) 14 MG/DL CREATININE (test code = 2214) 1.15 MG/DL eGFR (2020 CKD-EPI) (test co de = 46221) 54 ML/MIN/1.73 CALC BUN/CREAT (test code = 2235) 12 RATIO SODIUM (test code = 2231) 140 MEQ/L POTASSIUM (test code = 2228) 4.1 MEQ/L CHLORIDE (test code = 2215) 104 MEQ/L CARBON DIOXIDE (test code = 2206) 25 MEQ/L CALCIUM (test code = 2209) 9.8 MG/DL PROTEIN, TOTAL (test code = 2229) 7.7 G/DL ALBUMIN (test code = 2201) 4.6 G/DL CALC GLOBULIN (test code = 2240) 3.1 G/DL CALC A/G RATIO (test code = 2234) 1.5 RATIO BILIRUBIN, TOTAL (test code = 2207) <0.2 MG/DL ALKALINE PHOSPHATASE (test code = 220) 158 U/L AST (test code = 2218) 29 U/L ALT (test code = 2219) 40 U/L Moises CovingtonVITAMIN D, 25 [id number] 00:00:00* Test Item Value Reference Range Interpretation Comme [facility] VITAMIN D, 25 OH (test code = 4958) 36 NG/ML Moises CovingtonINTACT [id number] 00:00:00* Test Item Value Reference Range Interpretation Comme [facility] INTACT PTH (test code = 5005) 53 PG/ML Moises CovingtonCBC W/AUTO [id number] 00:00:00* Test Item Value Reference Range Interpretation Comme nts WBC (test code = 1001) 8.5 K/UL RBC (test code = 1002) 4.80 M/UL HEMOGLOBIN (test code = 1003) 12.4 G/DL HEMATOCRIT (test code = 1004) 38.9 % MCV (test code = 1005) 81.0 fL MCH (test code = 1006) 25.8 PG MCHC (test code = 1007) 31.9 G/DL RDW (test code = 1038) 15.0 % NEUTROPHILS (test code = 1008) 51.3 % LYMPHOCYTES (test code = 1010) 37.9 % MONOCYTES (test code = 1011) 5.3 % EOSINOPHILS (test code = 1012) 4.5 % BASOPHILS (test code = 1013) 0.6 % IMMATURE GRANULOCYTES (test code = 1036) 0.4 % NUCLEATED RBCS (test code = 1065) 0.0 /100WBC'S PLATELET COUNT (test code = 1015) 289 K/UL ABSOLUTE NEUTROPHILS (test c ode = 1066) 4.36 K/UL ABSOLUTE LYMPHOCYTES (test c ode = 1067) 3.22 K/UL ABSOLUTE MONOCYTES (test cod e = 1068) 0.45 K/UL ABSOLUTE EOSINOPHILS (test c ode = 1040) 0.38 K/UL ABSOLUTE BASOPHILS (test cod e = 1069) 0.05 K/UL ABS IMMATURE GRANULOCYTES (t est code = 1020) 0.03 K/UL ABS NUCLEATED RBCS (test cod e = 42092) 0.00 K/UL Moises Hardy, [id number] 00:00:00* Test Item Value Reference Range Interpretation Comme nts CULTURE, URINE (test code = 24530) SPECIMEN NUMBER: [id number] Moises Hardy [id number] 00:00:00* Test Item Value Reference Range Interpretation Comme nts CULTURE, URINE (test code = 12181) SPECIMEN NUMBER: [id number] Moises Hardy [id number] 00:00:00* Test Item Value Reference Range Interpretation Comme nts CULTURE, URINE (test code = 21321) SPECIMEN NUMBER: [id number] Moises Hardy, [id number] 00:00:00* Test Item Value Reference Range Interpretation Comme nts CULTURE, URINE (test code = 70937) SPECIMEN NUMBER: [id number] Moises Hardy, [id number] 00:00:00* Test Item Value Reference Range Interpretation Comme nts CULTURE, URINE (test code = 84564) SPECIMEN NUMBER: [id number] Moises Hardy [id number] 00:00:00* Test Item Value Reference Range Interpretation Comme nts CULTURE, URINE (test code = 62607) SPECIMEN NUMBER: [id number] Moises Hardy, [id number] 00:00:00* Test Item Value Reference Range Interpretation Comme nts CULTURE, URINE (test code = 63287) SPECIMEN NUMBER: [id number] Moises Hardy, [id number] 00:00:00* Test Item Value Reference Range Interpretation Comme nts CULTURE, URINE (test code = 51824) SPECIMEN NUMBER: [id number] Moises SneedLTRADAMES, [id number] 00:00:00* Test Item Value Reference Range Interpretation Comme nts CULTURE, URINE (test code = 20139) SPECIMEN NUMBER: [id number] Moises CovingtonCULTURE, [id number] 00:00:00* Test Item Value Reference Range Interpretation Comme nts CULTURE, URINE (test code = 51074) SPECIMEN NUMBER: [id number] Moises CovingtonCULTURE, [id number] 00:00:00* Test Item Value Reference Range Interpretation Comme nts CULTURE, URINE (test code = 18497) SPECIMEN NUMBER: [id number] Moises CovingtonCOMPREHENSIVE METABOLIC [id number] 00:00:00* Test Item Value Reference Range Interpretation Comme nts GLUCOSE (test code = 2217) 96 MG/DL BUN (test code = 2208) 19 MG/DL CREATININE (test code = 2214) 1.29 MG/DL eGFR (2020 CKD-EPI) (test co de = 81600) 47 ML/MIN/1.73 CALC BUN/CREAT (test code = 2235) 15 RATIO SODIUM (test code = 2231) 141 MEQ/L POTASSIUM (test code = 2228) 4.7 MEQ/L CHLORIDE (test code = 2215) 105 MEQ/L CARBON DIOXIDE (test code = 2206) 23 MEQ/L CALCIUM (test code = 2209) 11.1 MG/DL PROTEIN, TOTAL (test code = 2229) 8.7 G/DL ALBUMIN (test code = 2201) 4.9 G/DL CALC GLOBULIN (test code = 2240) 3.8 G/DL CALC A/G RATIO (test code = 2234) 1.3 RATIO BILIRUBIN, TOTAL (test code = 2207) <0.2 MG/DL ALKALINE PHOSPHATASE (test code = 2204) 95 U/L AST (test code = 2218) 20 U/L ALT (test code = 2219) 18 U/L Moises CovingtonCBC W/AUTO [id number] 00:00:00* Test Item Value Reference Range Interpretation Comme nts WBC (test code = 1001) 6.9 K/UL RBC (test code = 1002) 5.07 M/UL HEMOGLOBIN (test code = 1003) 13.4 G/DL HEMATOCRIT (test code = 1004) 41.9 % MCV (test code = 1005) 82.6 fL MCH (test code = 1006) 26.4 PG MCHC (test code = 1007) 32.0 G/DL RDW (test code = 1038) 14.5 % NEUTROPHILS (test code = 1008) 48.7 % LYMPHOCYTES (test code = 1010) 38.5 % MONOCYTES (test code = 1011) 6.4 % EOSINOPHILS (test code = 1012) 5.1 % BASOPHILS (test code = 1013) 0.9 % IMMATURE GRANULOCYTES (test code = 1036) 0.4 % NUCLEATED RBCS (test code = 1065) 0.0 /100WBC'S PLATELET COUNT (test code = 1015) 354 K/UL ABSOLUTE NEUTROPHILS (test c ode = 1066) 3.36 K/UL ABSOLUTE LYMPHOCYTES (test c ode = 1067) 2.65 K/UL ABSOLUTE MONOCYTES (test cod e = 1068) 0.44 K/UL ABSOLUTE EOSINOPHILS (test c ode = 1040) 0.35 K/UL ABSOLUTE BASOPHILS (test cod e = 1069) 0.06 K/UL ABS IMMATURE GRANULOCYTES (t est code = 1020) 0.03 K/UL ABS NUCLEATED RBCS (test cod e = 51534) 0.00 K/UL Moises CovingtonLIPID [id number] 00:00:00* Test Item Value Reference Range Interpretation Comme nts CHOLESTEROL (test code = 2210) 224 MG/DL TRIGLYCERIDES (test code = 2232) 80 MG/DL HDL CHOLESTEROL (test code = 2220) 60 MG/DL CALC LDL CHOL (test code = 2237) 146 MG/DL RISK RATIO LDL/HDL (test cod e = 2238) 2.43 RATIO Moises Emerson AdriaCOMPREHENSIVE METABOLIC [id number] 00:00:00* Test Item Value Reference Range Interpretation Comme nts GLUCOSE (test code = 2217) 96 MG/DL BUN (test code = 2208) 19 MG/DL CREATININE (test code = 2214) 1.29 MG/DL eGFR (2020 CKD-EPI) (test co de = 24209) 47 ML/MIN/1.73 CALC BUN/CREAT (test code = 2235) 15 RATIO SODIUM (test code = 2231) 141 MEQ/L POTASSIUM (test code = 2228) 4.7 MEQ/L CHLORIDE (test code = 2215) 105 MEQ/L CARBON DIOXIDE (test code = 2206) 23 MEQ/L CALCIUM (test code = 2209) 11.1 MG/DL PROTEIN, TOTAL (test code = 2229) 8.7 G/DL ALBUMIN (test code = 2201) 4.9 G/DL CALC GLOBULIN (test code = 2240) 3.8 G/DL CALC A/G RATIO (test code = 2234) 1.3 RATIO BILIRUBIN, TOTAL (test code = 2207) <0.2 MG/DL ALKALINE PHOSPHATASE (test code = 2204) 95 U/L AST (test code = 2218) 20 U/L ALT (test code = 2219) 18 U/L [facility] [id number] 00:00:00* Test Item Value Reference Range Interpretation Comme nts WBC (test code = 1001) 6.9 K/UL RBC (test code = 1002) 5.07 M/UL HEMOGLOBIN (test code = 1003) 13.4 G/DL HEMATOCRIT (test code = 1004) 41.9 % MCV (test code = 1005) 82.6 fL MCH (test code = 1006) 26.4 PG MCHC (test code = 1007) 32.0 G/DL RDW (test code = 1038) 14.5 % NEUTROPHILS (test code = 1008) 48.7 % LYMPHOCYTES (test code = 1010) 38.5 % MONOCYTES (test code = 1011) 6.4 % EOSINOPHILS (test code = 1012) 5.1 % BASOPHILS (test code = 1013) 0.9 % IMMATURE GRANULOCYTES (test code = 1036) 0.4 % NUCLEATED RBCS (test code = 1065) 0.0 /100WBC'S PLATELET COUNT (test code = 1015) 354 K/UL ABSOLUTE NEUTROPHILS (test c ode = 1066) 3.36 K/UL ABSOLUTE LYMPHOCYTES (test c ode = 1067) 2.65 K/UL ABSOLUTE MONOCYTES (test cod e = 1068) 0.44 K/UL ABSOLUTE EOSINOPHILS (test c ode = 1040) 0.35 K/UL ABSOLUTE BASOPHILS (test cod e = 1069) 0.06 K/UL ABS IMMATURE GRANULOCYTES (t est code = 1020) 0.03 K/UL ABS NUCLEATED RBCS (test cod e = 71303) 0.00 K/UL Moises CovingtonLIPID [id number] 00:00:00* Test Item Value Reference Range Interpretation Comme nts CHOLESTEROL (test code = 2210) 224 MG/DL TRIGLYCERIDES (test code = 2232) 80 MG/DL HDL CHOLESTEROL (test code = 2220) 60 MG/DL CALC LDL CHOL (test code = 2237) 146 MG/DL RISK RATIO LDL/HDL (test cod e = 2238) 2.43 RATIO Moises CovingtonCOMPREHENSIVE METABOLIC [id number] 00:00:00* Test Item Value Reference Range Interpretation Comme nts GLUCOSE (test code = 2217) 96 MG/DL BUN (test code = 2208) 19 MG/DL CREATININE (test code = 2214) 1.29 MG/DL eGFR (2020 CKD-EPI) (test co de = 89183) 47 ML/MIN/1.73 CALC BUN/CREAT (test code = 2235) 15 RATIO SODIUM (test code = 2231) 141 MEQ/L POTASSIUM (test code = 2228) 4.7 MEQ/L CHLORIDE (test code = 2215) 105 MEQ/L CARBON DIOXIDE (test code = 2206) 23 MEQ/L CALCIUM (test code = 2209) 11.1 MG/DL PROTEIN, TOTAL (test code = 2229) 8.7 G/DL ALBUMIN (test code = 2201) 4.9 G/DL CALC GLOBULIN (test code = 2240) 3.8 G/DL CALC A/G RATIO (test code = 2234) 1.3 RATIO BILIRUBIN, TOTAL (test code = 2207) <0.2 MG/DL ALKALINE PHOSPHATASE (test code = 2204) 95 U/L AST (test code = 2218) 20 U/L ALT (test code = 2219) 18 U/L Moises CovingtonCBC W/AUTO [id number] 00:00:00* Test Item Value Reference Range Interpretation Comme nts WBC (test code = 1001) 6.9 K/UL RBC (test code = 1002) 5.07 M/UL HEMOGLOBIN (test code = 1003) 13.4 G/DL HEMATOCRIT (test code = 1004) 41.9 % MCV (test code = 1005) 82.6 fL MCH (test code = 1006) 26.4 PG MCHC (test code = 1007) 32.0 G/DL RDW (test code = 1038) 14.5 % NEUTROPHILS (test code = 1008) 48.7 % LYMPHOCYTES (test code = 1010) 38.5 % MONOCYTES (test code = 1011) 6.4 % EOSINOPHILS (test code = 1012) 5.1 % BASOPHILS (test code = 1013) 0.9 % IMMATURE GRANULOCYTES (test code = 1036) 0.4 % NUCLEATED RBCS (test code = 1065) 0.0 /100WBC'S PLATELET COUNT (test code = 1015) 354 K/UL ABSOLUTE NEUTROPHILS (test c ode = 1066) 3.36 K/UL ABSOLUTE LYMPHOCYTES (test c ode = 1067) 2.65 K/UL ABSOLUTE MONOCYTES (test cod e = 1068) 0.44 K/UL ABSOLUTE EOSINOPHILS (test c ode = 1040) 0.35 K/UL ABSOLUTE BASOPHILS (test cod e = 1069) 0.06 K/UL ABS IMMATURE GRANULOCYTES (t est code = 1020) 0.03 K/UL ABS NUCLEATED RBCS (test cod e = 96848) 0.00 K/UL Moises Emerson WoodruffLIPID [id number] 00:00:00* Test Item Value Reference Range Interpretation Comme nts CHOLESTEROL (test code = 2210) 224 MG/DL TRIGLYCERIDES (test code = 2232) 80 MG/DL HDL CHOLESTEROL (test code = 2220) 60 MG/DL CALC LDL CHOL (test code = 2237) 146 MG/DL RISK RATIO LDL/HDL (test cod e = 2238) 2.43 RATIO Moises Emerson AdriaCOMPREHENSIVE METABOLIC [id number] 00:00:00* Test Item Value Reference Range Interpretation Comme nts GLUCOSE (test code = 2217) 96 MG/DL BUN (test code = 2208) 19 MG/DL CREATININE (test code = 2214) 1.29 MG/DL eGFR (2020 CKD-EPI) (test co de = 31302) 47 ML/MIN/1.73 CALC BUN/CREAT (test code = 2235) 15 RATIO SODIUM (test code = 2231) 141 MEQ/L POTASSIUM (test code = 2228) 4.7 MEQ/L CHLORIDE (test code = 2215) 105 MEQ/L CARBON DIOXIDE (test code = 2206) 23 MEQ/L CALCIUM (test code = 2209) 11.1 MG/DL PROTEIN, TOTAL (test code = 2229) 8.7 G/DL ALBUMIN (test code = 2201) 4.9 G/DL CALC GLOBULIN (test code = 2240) 3.8 G/DL CALC A/G RATIO (test code = 2234) 1.3 RATIO BILIRUBIN, TOTAL (test code = 2207) <0.2 MG/DL ALKALINE PHOSPHATASE (test code = 2204) 95 U/L AST (test code = 2218) 20 U/L ALT (test code = 2219) 18 U/L Moises CovingtonCBC W/AUTO [id number] 00:00:00* Test Item Value Reference Range Interpretation Comme nts WBC (test code = 1001) 6.9 K/UL RBC (test code = 1002) 5.07 M/UL HEMOGLOBIN (test code = 1003) 13.4 G/DL HEMATOCRIT (test code = 1004) 41.9 % MCV (test code = 1005) 82.6 fL MCH (test code = 1006) 26.4 PG MCHC (test code = 1007) 32.0 G/DL RDW (test code = 1038) 14.5 % NEUTROPHILS (test code = 1008) 48.7 % LYMPHOCYTES (test code = 1010) 38.5 % MONOCYTES (test code = 1011) 6.4 % EOSINOPHILS (test code = 1012) 5.1 % BASOPHILS (test code = 1013) 0.9 % IMMATURE GRANULOCYTES (test code = 1036) 0.4 % NUCLEATED RBCS (test code = 1065) 0.0 /100WBC'S PLATELET COUNT (test code = 1015) 354 K/UL ABSOLUTE NEUTROPHILS (test c ode = 1066) 3.36 K/UL ABSOLUTE LYMPHOCYTES (test c ode = 1067) 2.65 K/UL ABSOLUTE MONOCYTES (test cod e = 1068) 0.44 K/UL ABSOLUTE EOSINOPHILS (test c ode = 1040) 0.35 K/UL ABSOLUTE BASOPHILS (test cod e = 1069) 0.06 K/UL ABS IMMATURE GRANULOCYTES (t est code = 1020) 0.03 K/UL ABS NUCLEATED RBCS (test cod e = 07868) 0.00 K/UL Moises CovingtonLIPID [id number] 00:00:00* Test Item Value Reference Range Interpretation Comme nts CHOLESTEROL (test code = 2210) 224 MG/DL TRIGLYCERIDES (test code = 2232) 80 MG/DL HDL CHOLESTEROL (test code = 2220) 60 MG/DL CALC LDL CHOL (test code = 2237) 146 MG/DL RISK RATIO LDL/HDL (test cod e = 2238) 2.43 RATIO Moises CovingtonCOMPREHENSIVE METABOLIC [id number] 00:00:00* Test Item Value Reference Range Interpretation Comme nts GLUCOSE (test code = 2217) 96 MG/DL BUN (test code = 2208) 19 MG/DL CREATININE (test code = 2214) 1.29 MG/DL eGFR (2020 CKD-EPI) (test co de = 17351) 47 ML/MIN/1.73 CALC BUN/CREAT (test code = 2235) 15 RATIO SODIUM (test code = 2231) 141 MEQ/L POTASSIUM (test code = 2228) 4.7 MEQ/L CHLORIDE (test code = 2215) 105 MEQ/L CARBON DIOXIDE (test code = 2206) 23 MEQ/L CALCIUM (test code = 2209) 11.1 MG/DL PROTEIN, TOTAL (test code = 2229) 8.7 G/DL ALBUMIN (test code = 2201) 4.9 G/DL CALC GLOBULIN (test code = 2240) 3.8 G/DL CALC A/G RATIO (test code = 2234) 1.3 RATIO BILIRUBIN, TOTAL (test code = 2207) <0.2 MG/DL ALKALINE PHOSPHATASE (test code = 2204) 95 U/L AST (test code = 2218) 20 U/L ALT (test code = 2219) 18 U/L Moises CovingtonCBC W/AUTO [id number] 00:00:00* Test Item Value Reference Range Interpretation Comme nts WBC (test code = 1001) 6.9 K/UL RBC (test code = 1002) 5.07 M/UL HEMOGLOBIN (test code = 1003) 13.4 G/DL HEMATOCRIT (test code = 1004) 41.9 % MCV (test code = 1005) 82.6 fL MCH (test code = 1006) 26.4 PG MCHC (test code = 1007) 32.0 G/DL RDW (test code = 1038) 14.5 % NEUTROPHILS (test code = 1008) 48.7 % LYMPHOCYTES (test code = 1010) 38.5 % MONOCYTES (test code = 1011) 6.4 % EOSINOPHILS (test code = 1012) 5.1 % BASOPHILS (test code = 1013) 0.9 % IMMATURE GRANULOCYTES (test code = 1036) 0.4 % NUCLEATED RBCS (test code = 1065) 0.0 /100WBC'S PLATELET COUNT (test code = 1015) 354 K/UL ABSOLUTE NEUTROPHILS (test c ode = 1066) 3.36 K/UL ABSOLUTE LYMPHOCYTES (test c ode = 1067) 2.65 K/UL ABSOLUTE MONOCYTES (test cod e = 1068) 0.44 K/UL ABSOLUTE EOSINOPHILS (test c ode = 1040) 0.35 K/UL ABSOLUTE BASOPHILS (test cod e = 1069) 0.06 K/UL ABS IMMATURE GRANULOCYTES (t est code = 1020) 0.03 K/UL ABS NUCLEATED RBCS (test cod e = 12647) 0.00 K/UL Moises Idania WoodruffLIPID [id number] 00:00:00* Test Item Value Reference Range Interpretation Comme nts CHOLESTEROL (test code = 2210) 224 MG/DL TRIGLYCERIDES (test code = 2232) 80 MG/DL HDL CHOLESTEROL (test code = 2220) 60 MG/DL CALC LDL CHOL (test code = 2237) 146 MG/DL RISK RATIO LDL/HDL (test cod e = 2238) 2.43 RATIO Moises CovingtonCOMPREHENSIVE METABOLIC [id number] 00:00:00* Test Item Value Reference Range Interpretation Comme nts GLUCOSE (test code = 2217) 96 MG/DL BUN (test code = 2208) 19 MG/DL CREATININE (test code = 2214) 1.29 MG/DL eGFR (2020 CKD-EPI) (test co de = 73689) 47 ML/MIN/1.73 CALC BUN/CREAT (test code = 2235) 15 RATIO SODIUM (test code = 2231) 141 MEQ/L POTASSIUM (test code = 2228) 4.7 MEQ/L CHLORIDE (test code = 2215) 105 MEQ/L CARBON DIOXIDE (test code = 2206) 23 MEQ/L CALCIUM (test code = 2209) 11.1 MG/DL PROTEIN, TOTAL (test code = 2229) 8.7 G/DL ALBUMIN (test code = 2201) 4.9 G/DL CALC GLOBULIN (test code = 2240) 3.8 G/DL CALC A/G RATIO (test code = 2234) 1.3 RATIO BILIRUBIN, TOTAL (test code = 2207) <0.2 MG/DL ALKALINE PHOSPHATASE (test code = 2204) 95 U/L AST (test code = 2218) 20 U/L ALT (test code = 2219) 18 U/L Moises CovingtonCBC W/AUTO [id number] 00:00:00* Test Item Value Reference Range Interpretation Comme nts WBC (test code = 1001) 6.9 K/UL RBC (test code = 1002) 5.07 M/UL HEMOGLOBIN (test code = 1003) 13.4 G/DL HEMATOCRIT (test code = 1004) 41.9 % MCV (test code = 1005) 82.6 fL MCH (test code = 1006) 26.4 PG MCHC (test code = 1007) 32.0 G/DL RDW (test code = 1038) 14.5 % NEUTROPHILS (test code = 1008) 48.7 % LYMPHOCYTES (test code = 1010) 38.5 % MONOCYTES (test code = 1011) 6.4 % EOSINOPHILS (test code = 1012) 5.1 % BASOPHILS (test code = 1013) 0.9 % IMMATURE GRANULOCYTES (test code = 1036) 0.4 % NUCLEATED RBCS (test code = 1065) 0.0 /100WBC'S PLATELET COUNT (test code = 1015) 354 K/UL ABSOLUTE NEUTROPHILS (test c ode = 1066) 3.36 K/UL ABSOLUTE LYMPHOCYTES (test c ode = 1067) 2.65 K/UL ABSOLUTE MONOCYTES (test cod e = 1068) 0.44 K/UL ABSOLUTE EOSINOPHILS (test c ode = 1040) 0.35 K/UL ABSOLUTE BASOPHILS (test cod e = 1069) 0.06 K/UL ABS IMMATURE GRANULOCYTES (t est code = 1020) 0.03 K/UL ABS NUCLEATED RBCS (test cod e = 61391) 0.00 K/UL Moises CovingtonLIPID [id number] 00:00:00* Test Item Value Reference Range Interpretation Comme nts CHOLESTEROL (test code = 2210) 224 MG/DL TRIGLYCERIDES (test code = 2232) 80 MG/DL HDL CHOLESTEROL (test code = 2220) 60 MG/DL CALC LDL CHOL (test code = 2237) 146 MG/DL RISK RATIO LDL/HDL (test cod e = 2238) 2.43 RATIO Moises CovingtonCOMPREHENSIVE METABOLIC [id number] 00:00:00* Test Item Value Reference Range Interpretation Comme nts GLUCOSE (test code = 2217) 96 MG/DL BUN (test code = 2208) 19 MG/DL CREATININE (test code = 2214) 1.29 MG/DL eGFR (2020 CKD-EPI) (test co de = 83530) 47 ML/MIN/1.73 CALC BUN/CREAT (test code = 2235) 15 RATIO SODIUM (test code = 2231) 141 MEQ/L POTASSIUM (test code = 2228) 4.7 MEQ/L CHLORIDE (test code = 2215) 105 MEQ/L CARBON DIOXIDE (test code = 2206) 23 MEQ/L CALCIUM (test code = 2209) 11.1 MG/DL PROTEIN, TOTAL (test code = 2229) 8.7 G/DL ALBUMIN (test code = 2201) 4.9 G/DL CALC GLOBULIN (test code = 2240) 3.8 G/DL CALC A/G RATIO (test code = 2234) 1.3 RATIO BILIRUBIN, TOTAL (test code = 2207) <0.2 MG/DL ALKALINE PHOSPHATASE (test code = 2204) 95 U/L AST (test code = 2218) 20 U/L ALT (test code = 2219) 18 U/L Moises CovingtonCBC W/AUTO [id number] 00:00:00* Test Item Value Reference Range Interpretation Comme nts WBC (test code = 1001) 6.9 K/UL RBC (test code = 1002) 5.07 M/UL HEMOGLOBIN (test code = 1003) 13.4 G/DL HEMATOCRIT (test code = 1004) 41.9 % MCV (test code = 1005) 82.6 fL MCH (test code = 1006) 26.4 PG MCHC (test code = 1007) 32.0 G/DL RDW (test code = 1038) 14.5 % NEUTROPHILS (test code = 1008) 48.7 % LYMPHOCYTES (test code = 1010) 38.5 % MONOCYTES (test code = 1011) 6.4 % EOSINOPHILS (test code = 1012) 5.1 % BASOPHILS (test code = 1013) 0.9 % IMMATURE GRANULOCYTES (test code = 1036) 0.4 % NUCLEATED RBCS (test code = 1065) 0.0 /100WBC'S PLATELET COUNT (test code = 1015) 354 K/UL ABSOLUTE NEUTROPHILS (test c ode = 1066) 3.36 K/UL ABSOLUTE LYMPHOCYTES (test c ode = 1067) 2.65 K/UL ABSOLUTE MONOCYTES (test cod e = 1068) 0.44 K/UL ABSOLUTE EOSINOPHILS (test c ode = 1040) 0.35 K/UL ABSOLUTE BASOPHILS (test cod e = 1069) 0.06 K/UL ABS IMMATURE GRANULOCYTES (t est code = 1020) 0.03 K/UL ABS NUCLEATED RBCS (test cod e = 46389) 0.00 K/UL Moises Emerson AustinLIPID [id number] 00:00:00* Test Item Value Reference Range Interpretation Comme nts CHOLESTEROL (test code = 2210) 224 MG/DL TRIGLYCERIDES (test code = 2232) 80 MG/DL HDL CHOLESTEROL (test code = 2220) 60 MG/DL CALC LDL CHOL (test code = 2237) 146 MG/DL RISK RATIO LDL/HDL (test cod e = 2238) 2.43 RATIO Moises CovingtonCOMPREHENSIVE METABOLIC [id number] 00:00:00* Test Item Value Reference Range Interpretation Comme nts GLUCOSE (test code = 2217) 96 MG/DL BUN (test code = 2208) 19 MG/DL CREATININE (test code = 2214) 1.29 MG/DL eGFR (2020 CKD-EPI) (test co de = 53048) 47 ML/MIN/1.73 CALC BUN/CREAT (test code = 2235) 15 RATIO SODIUM (test code = 2231) 141 MEQ/L POTASSIUM (test code = 2228) 4.7 MEQ/L CHLORIDE (test code = 2215) 105 MEQ/L CARBON DIOXIDE (test code = 2206) 23 MEQ/L CALCIUM (test code = 2209) 11.1 MG/DL PROTEIN, TOTAL (test code = 2229) 8.7 G/DL ALBUMIN (test code = 2201) 4.9 G/DL CALC GLOBULIN (test code = 2240) 3.8 G/DL CALC A/G RATIO (test code = 2234) 1.3 RATIO BILIRUBIN, TOTAL (test code = 2207) <0.2 MG/DL ALKALINE PHOSPHATASE (test code = 2204) 95 U/L AST (test code = 2218) 20 U/L ALT (test code = 2219) 18 U/L Moises CovingtonCBC W/AUTO [id number] 00:00:00* Test Item Value Reference Range Interpretation Comme nts WBC (test code = 1001) 6.9 K/UL RBC (test code = 1002) 5.07 M/UL HEMOGLOBIN (test code = 1003) 13.4 G/DL HEMATOCRIT (test code = 1004) 41.9 % MCV (test code = 1005) 82.6 fL MCH (test code = 1006) 26.4 PG MCHC (test code = 1007) 32.0 G/DL RDW (test code = 1038) 14.5 % NEUTROPHILS (test code = 1008) 48.7 % LYMPHOCYTES (test code = 1010) 38.5 % MONOCYTES (test code = 1011) 6.4 % EOSINOPHILS (test code = 1012) 5.1 % BASOPHILS (test code = 1013) 0.9 % IMMATURE GRANULOCYTES (test code = 1036) 0.4 % NUCLEATED RBCS (test code = 1065) 0.0 /100WBC'S PLATELET COUNT (test code = 1015) 354 K/UL ABSOLUTE NEUTROPHILS (test c ode = 1066) 3.36 K/UL ABSOLUTE LYMPHOCYTES (test c ode = 1067) 2.65 K/UL ABSOLUTE MONOCYTES (test cod e = 1068) 0.44 K/UL ABSOLUTE EOSINOPHILS (test c ode = 1040) 0.35 K/UL ABSOLUTE BASOPHILS (test cod e = 1069) 0.06 K/UL ABS IMMATURE GRANULOCYTES (t est code = 1020) 0.03 K/UL ABS NUCLEATED RBCS (test cod e = 35596) 0.00 K/UL Moises CovingtonLIPID [id number] 00:00:00* Test Item Value Reference Range Interpretation Comme nts CHOLESTEROL (test code = 2210) 224 MG/DL TRIGLYCERIDES (test code = 2232) 80 MG/DL HDL CHOLESTEROL (test code = 2220) 60 MG/DL CALC LDL CHOL (test code = 2237) 146 MG/DL RISK RATIO LDL/HDL (test cod e = 2238) 2.43 RATIO Moises CovingtonCOMPREHENSIVE METABOLIC [id number] 00:00:00* Test Item Value Reference Range Interpretation Comme nts GLUCOSE (test code = 2217) 96 MG/DL BUN (test code = 2208) 19 MG/DL CREATININE (test code = 2214) 1.29 MG/DL eGFR (2020 CKD-EPI) (test co de = 17800) 47 ML/MIN/1.73 CALC BUN/CREAT (test code = 2235) 15 RATIO SODIUM (test code = 2231) 141 MEQ/L POTASSIUM (test code = 2228) 4.7 MEQ/L CHLORIDE (test code = 2215) 105 MEQ/L CARBON DIOXIDE (test code = 2206) 23 MEQ/L CALCIUM (test code = 2209) 11.1 MG/DL PROTEIN, TOTAL (test code = 2229) 8.7 G/DL ALBUMIN (test code = 2201) 4.9 G/DL CALC GLOBULIN (test code = 2240) 3.8 G/DL CALC A/G RATIO (test code = 2234) 1.3 RATIO BILIRUBIN, TOTAL (test code = 2207) <0.2 MG/DL ALKALINE PHOSPHATASE (test code = 2204) 95 U/L AST (test code = 2218) 20 U/L ALT (test code = 2219) 18 U/L Moises CovingtonCBC W/AUTO [id number] 00:00:00* Test Item Value Reference Range Interpretation Comme [facility] WBC (test code = 1001) 6.9 K/UL RBC (test code = 1002) 5.07 M/UL HEMOGLOBIN (test code = 1003) 13.4 G/DL HEMATOCRIT (test code = 1004) 41.9 % MCV (test code = 1005) 82.6 fL MCH (test code = 1006) 26.4 PG MCHC (test code = 1007) 32.0 G/DL RDW (test code = 1038) 14.5 % NEUTROPHILS (test code = 1008) 48.7 % LYMPHOCYTES (test code = 1010) 38.5 % MONOCYTES (test code = 1011) 6.4 % EOSINOPHILS (test code = 1012) 5.1 % BASOPHILS (test code = 1013) 0.9 % IMMATURE GRANULOCYTES (test code = 1036) 0.4 % NUCLEATED RBCS (test code = 1065) 0.0 /100WBC'S PLATELET COUNT (test code = 1015) 354 K/UL ABSOLUTE NEUTROPHILS (test c ode = 1066) 3.36 K/UL ABSOLUTE LYMPHOCYTES (test c ode = 1067) 2.65 K/UL ABSOLUTE MONOCYTES (test cod e = 1068) 0.44 K/UL ABSOLUTE EOSINOPHILS (test c ode = 1040) 0.35 K/UL ABSOLUTE BASOPHILS (test cod e = 1069) 0.06 K/UL ABS IMMATURE GRANULOCYTES (t est code = 1020) 0.03 K/UL ABS NUCLEATED RBCS (test cod e = 95448) 0.00 K/UL Moises Emerson AdriaLIPID [id number] 00:00:00* Test Item Value Reference Range Interpretation Comme nts CHOLESTEROL (test code = 2210) 224 MG/DL TRIGLYCERIDES (test code = 2232) 80 MG/DL HDL CHOLESTEROL (test code = 2220) 60 MG/DL CALC LDL CHOL (test code = 2237) 146 MG/DL RISK RATIO LDL/HDL (test cod e = 2238) 2.43 RATIO Moises Emerson AdriaCOMPREHENSIVE METABOLIC [id number] 00:00:00* Test Item Value Reference Range Interpretation Comme nts GLUCOSE (test code = 2217) 96 MG/DL BUN (test code = 2208) 19 MG/DL CREATININE (test code = 2214) 1.29 MG/DL eGFR (2020 CKD-EPI) (test co de = 64098) 47 ML/MIN/1.73 CALC BUN/CREAT (test code = 2235) 15 RATIO SODIUM (test code = 2231) 141 MEQ/L POTASSIUM (test code = 2228) 4.7 MEQ/L CHLORIDE (test code = 2215) 105 MEQ/L CARBON DIOXIDE (test code = 2206) 23 MEQ/L CALCIUM (test code = 2209) 11.1 MG/DL PROTEIN, TOTAL (test code = 2229) 8.7 G/DL ALBUMIN (test code = 2201) 4.9 G/DL CALC GLOBULIN (test code = 2240) 3.8 G/DL CALC A/G RATIO (test code = 2234) 1.3 RATIO BILIRUBIN, TOTAL (test code = 2207) <0.2 MG/DL ALKALINE PHOSPHATASE (test code = 2204) 95 U/L AST (test code = 2218) 20 U/L ALT (test code = 2219) 18 U/L Moises CovingtonCBC W/AUTO [id number] 00:00:00* Test Item Value Reference Range Interpretation Comme nts WBC (test code = 1001) 6.9 K/UL RBC (test code = 1002) 5.07 M/UL HEMOGLOBIN (test code = 1003) 13.4 G/DL HEMATOCRIT (test code = 1004) 41.9 % MCV (test code = 1005) 82.6 fL MCH (test code = 1006) 26.4 PG MCHC (test code = 1007) 32.0 G/DL RDW (test code = 1038) 14.5 % NEUTROPHILS (test code = 1008) 48.7 % LYMPHOCYTES (test code = 1010) 38.5 % MONOCYTES (test code = 1011) 6.4 % EOSINOPHILS (test code = 1012) 5.1 % BASOPHILS (test code = 1013) 0.9 % IMMATURE GRANULOCYTES (test code = 1036) 0.4 % NUCLEATED RBCS (test code = 1065) 0.0 /100WBC'S PLATELET COUNT (test code = 1015) 354 K/UL ABSOLUTE NEUTROPHILS (test c ode = 1066) 3.36 K/UL ABSOLUTE LYMPHOCYTES (test c ode = 1067) 2.65 K/UL ABSOLUTE MONOCYTES (test cod e = 1068) 0.44 K/UL ABSOLUTE EOSINOPHILS (test c ode = 1040) 0.35 K/UL ABSOLUTE BASOPHILS (test cod e = 1069) 0.06 K/UL ABS IMMATURE GRANULOCYTES (t est code = 1020) 0.03 K/UL ABS NUCLEATED RBCS (test cod e = 47483) 0.00 K/UL Moises CovingtonLIPID [id number] 00:00:00* Test Item Value Reference Range Interpretation Comme nts CHOLESTEROL (test code = 2210) 224 MG/DL TRIGLYCERIDES (test code = 2232) 80 MG/DL HDL CHOLESTEROL (test code = 2220) 60 MG/DL CALC LDL CHOL (test code = 2237) 146 MG/DL RISK RATIO LDL/HDL (test cod e = 2238) 2.43 RATIO Moises CovingtonCOMPREHENSIVE METABOLIC [id number] 00:00:00* Test Item Value Reference Range Interpretation Comme nts GLUCOSE (test code = 2217) 96 MG/DL BUN (test code = 2208) 19 MG/DL CREATININE (test code = 2214) 1.29 MG/DL eGFR (2020 CKD-EPI) (test co de = 02426) 47 ML/MIN/1.73 CALC BUN/CREAT (test code = 2235) 15 RATIO SODIUM (test code = 2231) 141 MEQ/L POTASSIUM (test code = 2228) 4.7 MEQ/L CHLORIDE (test code = 2215) 105 MEQ/L CARBON DIOXIDE (test code = 2206) 23 MEQ/L CALCIUM (test code = 2209) 11.1 MG/DL PROTEIN, TOTAL (test code = 2229) 8.7 G/DL ALBUMIN (test code = 2201) 4.9 G/DL CALC GLOBULIN (test code = 2240) 3.8 G/DL CALC A/G RATIO (test code = 2234) 1.3 RATIO BILIRUBIN, TOTAL (test code = 2207) <0.2 MG/DL ALKALINE PHOSPHATASE (test code = 2204) 95 U/L AST (test code = 2218) 20 U/L ALT (test code = 2219) 18 U/L Moises CovingtonCBC W/AUTO [id number] 00:00:00* Test Item Value Reference Range Interpretation Comme nts WBC (test code = 1001) 6.9 K/UL RBC (test code = 1002) 5.07 M/UL HEMOGLOBIN (test code = 1003) 13.4 G/DL HEMATOCRIT (test code = 1004) 41.9 % MCV (test code = 1005) 82.6 fL MCH (test code = 1006) 26.4 PG MCHC (test code = 1007) 32.0 G/DL RDW (test code = 1038) 14.5 % NEUTROPHILS (test code = 1008) 48.7 % LYMPHOCYTES (test code = 1010) 38.5 % MONOCYTES (test code = 1011) 6.4 % EOSINOPHILS (test code = 1012) 5.1 % BASOPHILS (test code = 1013) 0.9 % IMMATURE GRANULOCYTES (test code = 1036) 0.4 % NUCLEATED RBCS (test code = 1065) 0.0 /100WBC'S PLATELET COUNT (test code = 1015) 354 K/UL ABSOLUTE NEUTROPHILS (test c ode = 1066) 3.36 K/UL ABSOLUTE LYMPHOCYTES (test c ode = 1067) 2.65 K/UL ABSOLUTE MONOCYTES (test cod e = 1068) 0.44 K/UL ABSOLUTE EOSINOPHILS (test c ode = 1040) 0.35 K/UL ABSOLUTE BASOPHILS (test cod e = 1069) 0.06 K/UL ABS IMMATURE GRANULOCYTES (t est code = 1020) 0.03 K/UL ABS NUCLEATED RBCS (test cod e = 81545) 0.00 K/UL Moises CovingtonLIPID [id number] 00:00:00* Test Item Value Reference Range Interpretation Comme nts CHOLESTEROL (test code = 2210) 224 MG/DL TRIGLYCERIDES (test code = 2232) 80 MG/DL HDL CHOLESTEROL (test code = 2220) 60 MG/DL CALC LDL CHOL (test code = 2237) 146 MG/DL RISK RATIO LDL/HDL (test cod e = 2238) 2.43 RATIO Moises Emerson AustinTRICHOMONAS, VAG SWAB, [id number] 00:00:00* Test Item Value Reference Range Interpretation Comme nts TRICHOMONAS, NAAT (test code = 06959) TEST NOT PERFORMED Moises Idania AustinTRICHOMONAS, VAG SWAB, [id number] 00:00:00* Test Item Value Reference Range Interpretation Comme nts TRICHOMONAS, NAAT (test code = 13440) TEST NOT PERFORMED Moises Idania AustinTRICHOMONAS, VAG SWAB, [id number] 00:00:00* Test Item Value Reference Range Interpretation Comme nts TRICHOMONAS, NAAT (test code = 54238) TEST NOT PERFORMED Moises Idania AustinTRICHOMONAS, VAG SWAB, [id number] 00:00:00* Test Item Value Reference Range Interpretation Comme nts TRICHOMONAS, NAAT (test code = 05694) TEST NOT PERFORMED Moises Idania AustinTRICHOMONAS, VAG SWAB, [id number] 00:00:00* Test Item Value Reference Range Interpretation Comme nts TRICHOMONAS, NAAT (test code = 75049) TEST NOT PERFORMED Moises Idania AustinTRICHOMONAS, VAG SWAB, [id number] 00:00:00* Test Item Value Reference Range Interpretation Comme nts TRICHOMONAS, NAAT (test code = 80488) TEST NOT PERFORMED Moises F AustinTRICHOMONAS, VAG SWAB, [id number] 00:00:00* Test Item Value Reference Range Interpretation Comme nts TRICHOMONAS, NAAT (test code = 92292) TEST NOT PERFORMED Moises Idania AustinTRICHOMONAS, VAG SWAB, [id number] 00:00:00* Test Item Value Reference Range Interpretation Comme nts TRICHOMONAS, NAAT (test code = 30669) TEST NOT PERFORMED Moises Idania AustinTRICHOMONAS, VAG SWAB, [id number] 00:00:00* Test Item Value Reference Range Interpretation Comme nts TRICHOMONAS, NAAT (test code = 82670) TEST NOT PERFORMED Moises Idania AustinTRICHOMONAS, VAG SWAB, [id number] 00:00:00* Test Item Value Reference Range Interpretation Comme nts TRICHOMONAS, NAAT (test code = 66347) TEST NOT PERFORMED Moises F AustinTRICHOMONAS, VAG SWAB, [id number] 00:00:00* Test Item Value Reference Range Interpretation Comme nts TRICHOMONAS, NAAT (test code = 31344) TEST NOT PERFORMED Moises Emerson AustinPAP TEST, THINPREP, [id number] 00:00:00* Test Item Value Reference Range Interpretation Comme nts SOURCE: (test code = 8001) Cervical/Endocervical SLIDES: (test code = 8011) 1 LMP: (test code = 8021) NOT GIVEN SPECIMEN ADEQUACY: (test code = 16871) (NOTE) INTERPRETATION: (test code = 05109) NILM/NO EPITH. ABNORMALITY;SEE BELOW SALES FLOOR TEAM MEMBER: (test code = 8101) MAICO Pedroza(ASCP) LOCATION: (test code = 36061) (NOTE) CPT: (test code = 8140) (NOTE) Moises Emerson AustinPAP TEST, THINPREP, [id number] 00:00:00* Test Item Value Reference Range Interpretation Comme nts SOURCE: (test code = 8001) Cervical/Endocervical SLIDES: (test code = 8011) 1 LMP: (test code = 8021) NOT GIVEN SPECIMEN ADEQUACY: (test code = 21440) (NOTE) INTERPRETATION: (test code = 78588) NILM/NO EPITH. ABNORMALITY;SEE BELOW SALES FLOOR TEAM MEMBER: (test code = 8101) Brenda SrinivasanCT(ASCP) LOCATION: (test code = 95785) (NOTE) CPT: (test code = 8140) (NOTE) Moises TurnerP TEST, THINPREP, [id number] 00:00:00* Test Item Value Reference Range Interpretation Comme nts SOURCE: (test code = 8001) Cervical/Endocervical SLIDES: (test code = 8011) 1 LMP: (test code = 8021) NOT GIVEN SPECIMEN ADEQUACY: (test code = 92421) (NOTE) INTERPRETATION: (test code = 36709) NILM/NO EPITH. ABNORMALITY;SEE BELOW SALES FLOOR TEAM MEMBER: (test code = 8101) Brenda SrinivasanCT(ASCP) LOCATION: (test code = 89957) (NOTE) CPT: (test code = 8140) (NOTE) Moises CovingtonPAP TEST, THINPREP, [id number] 00:00:00* Test Item Value Reference Range Interpretation Comme nts SOURCE: (test code = 8001) Cervical/Endocervical SLIDES: (test code = 8011) 1 LMP: (test code = 8021) NOT GIVEN SPECIMEN ADEQUACY: (test code = 60725) (NOTE) INTERPRETATION: (test code = 95828) NILM/NO EPITH. ABNORMALITY;SEE BELOW SALES FLOOR TEAM MEMBER: (test code = 8101) Brenda SrinivasanCT(ASCP) LOCATION: (test code = 98959) (NOTE) CPT: (test code = 8140) (NOTE) Moises CovingtonPAP TEST, THINPREP, [id number] 00:00:00* Test Item Value Reference Range Interpretation Comme nts SOURCE: (test code = 8001) Cervical/Endocervical SLIDES: (test code = 8011) 1 LMP: (test code = 8021) NOT GIVEN SPECIMEN ADEQUACY: (test code = 24975) (NOTE) INTERPRETATION: (test code = 36850) NILM/NO EPITH. ABNORMALITY;SEE BELOW SALES FLOOR TEAM MEMBER: (test code = 8101) Brenda SrinivasanCT(ASCP) LOCATION: (test code = 11894) (NOTE) CPT: (test code = 8140) (NOTE) Moises CovingtonPAP TEST, THINPREP, [id number] 00:00:00* Test Item Value Reference Range Interpretation Comme nts SOURCE: (test code = 8001) Cervical/Endocervical SLIDES: (test code = 8011) 1 LMP: (test code = 8021) NOT GIVEN SPECIMEN ADEQUACY: (test code = 88944) (NOTE) INTERPRETATION: (test code = 83493) NILM/NO EPITH. ABNORMALITY;SEE BELOW SALES FLOOR TEAM MEMBER: (test code = 8101) Brenda Craig,CT(ASCP) LOCATION: (test code = 20003) (NOTE) CPT: (test code = 8140) (NOTE) Moises CovingtonPAP TEST, THINPREP, [id number] 00:00:00* Test Item Value Reference Range Interpretation Comme nts SOURCE: (test code = 8001) Cervical/Endocervical SLIDES: (test code = 8011) 1 LMP: (test code = 8021) NOT GIVEN SPECIMEN ADEQUACY: (test code = 01475) (NOTE) INTERPRETATION: (test code = 84484) NILM/NO EPITH. ABNORMALITY;SEE BELOW SALES FLOOR TEAM MEMBER: (test code = 8101) Brenda SrinivasanCT(ASCP) LOCATION: (test code = 17131) (NOTE) CPT: (test code = 8140) (NOTE) Moises CovingtonPAP TEST, THINPREP, [id number] 00:00:00* Test Item Value Reference Range Interpretation Comme nts SOURCE: (test code = 8001) Cervical/Endocervical SLIDES: (test code = 8011) 1 LMP: (test code = 8021) NOT GIVEN SPECIMEN ADEQUACY: (test code = 21679) (NOTE) INTERPRETATION: (test code = 15221) NILM/NO EPITH. ABNORMALITY;SEE BELOW SALES FLOOR TEAM MEMBER: (test code = 8101) Brendarui SrinivasanCT(ASCP) LOCATION: (test code = 03194) (NOTE) CPT: (test code = 8140) (NOTE) Moises CovingtonPAP TEST, THINPREP, [id number] 00:00:00* Test Item Value Reference Range Interpretation Comme nts SOURCE: (test code = 8001) Cervical/Endocervical SLIDES: (test code = 8011) 1 LMP: (test code = 8021) NOT GIVEN SPECIMEN ADEQUACY: (test code = 03263) (NOTE) INTERPRETATION: (test code = 13604) NILM/NO EPITH. ABNORMALITY;SEE BELOW SALES FLOOR TEAM MEMBER: (test code = 8101) Brenda Carig,CT(ASCP) LOCATION: (test code = 36656) (NOTE) CPT: (test code = 8140) (NOTE) Moises CovingtonPAP TEST, THINPREP, [id number] 00:00:00* Test Item Value Reference Range Interpretation Comme nts SOURCE: (test code = 8001) Cervical/Endocervical SLIDES: (test code = 8011) 1 LMP: (test code = 8021) NOT GIVEN SPECIMEN ADEQUACY: (test code = 34719) (NOTE) INTERPRETATION: (test code = 89487) NILM/NO EPITH. ABNORMALITY;SEE BELOW SALES FLOOR TEAM MEMBER: (test code = 8101) Brenda Craig,CT(ASCP) LOCATION: (test code = 42776) (NOTE) CPT: (test code = 8140) (NOTE) Moises CovingtonPAP TEST, THINPREP, [id number] 00:00:00* Test Item Value Reference Range Interpretation Comme nts SOURCE: (test code = 8001) Cervical/Endocervical SLIDES: (test code = 8011) 1 LMP: (test code = 8021) NOT GIVEN SPECIMEN ADEQUACY: (test code = 32578) (NOTE) INTERPRETATION: (test code = 14565) NILM/NO EPITH. ABNORMALITY;SEE BELOW SALES FLOOR TEAM MEMBER: (test code = 8101) Brenda Bowers,CT(ASCP) LOCATION: (test code = 03977) (NOTE) CPT: (test code = 8140) (NOTE) Moises Emerson [id number] 00:00:00* Test Item Value Reference Range Interpretation Comme nts RPR RESULT (test code = 3501) NON-REACTIVE RPR TITER (test code = 3500) NOT INDIC. TITER Moises Emerson AdriaTRICHOMONAS, URINE, [id number] 00:00:00* Test Item Value Reference Range Interpretation Comme nts TRICHOMONAS, NAAT, URINE (te st code = 77862) POSITIVE Moises Emerson AustinVAGINAL PATHOGENS DNA [id number] 00:00:00* Test Item Value Reference Range Interpretation Comme nts DONNA SPECIES (test code = ) NEGATIVE G. VAGINALIS (test code = 38681) NEGATIVE T. VAGINALIS (test code = 67449) NEGATIVE Moises Emerson AustinCT/NG, TMA, [id number] 00:00:00* Test Item Value Reference Range Interpretation Comme nts CHLAMYDIA, NAAT, THINPREP (t est code = 46230) NEGATIVE GONORRHEA, NAAT, THINPREP (t est code = 57160) NEGATIVE Moises Emerson AustinHERPES SIMPLEX [id number] 00:00:00* Test Item Value Reference Range Interpretation Comme nts HERPES SIMPLEX AB, IgM (test code = 00892) 0.40 INDEX Moises CovingtonHIV 1/2 4TH GEN, RFLX [id number] 00:00:00* Test Item Value Reference Range Interpretation Comme nts HIV 1/2 4TH GEN, RFLX CONF ( test code = 3514) NON-REACTIVE Moises Emerson [id number] 00:00:00* Test Item Value Reference Range Interpretation Comme nts RPR RESULT (test code = 3501) NON-REACTIVE RPR TITER (test code = 3500) NOT INDIC. TITER Moises CovingtonTRICHOMONAS, URINE, [id number] 00:00:00* Test Item Value Reference Range Interpretation Comme nts TRICHOMONAS, NAAT, URINE (te st code = 02421) POSITIVE Moises CovingtonVAGINAL PATHOGENS DNA [id number] 00:00:00* Test Item Value Reference Range Interpretation Comme nts DONNA SPECIES (test code = ) NEGATIVE G. VAGINALIS (test code = 76054) NEGATIVE T. VAGINALIS (test code = 40059) NEGATIVE Moises Emerson AustinCT/NG, TMA, [id number] 00:00:00* Test Item Value Reference Range Interpretation Comme nts CHLAMYDIA, NAAT, THINPREP (t est code = 26525) NEGATIVE GONORRHEA, NAAT, THINPREP (t est code = 37962) NEGATIVE Moises Emerson AustinHERPES SIMPLEX [id number] 00:00:00* Test Item Value Reference Range Interpretation Comme nts HERPES SIMPLEX AB, IgM (test code = 90573) 0.40 INDEX Moises CovingtonHIV 1/2 4TH GEN, RFLX [id number] 00:00:00* Test Item Value Reference Range Interpretation Comme nts HIV 1/2 4TH GEN, RFLX CONF ( test code = 3514) NON-REACTIVE Moises Emerson [id number] 00:00:00* Test Item Value Reference Range Interpretation Comme nts RPR RESULT (test code = 3501) NON-REACTIVE RPR TITER (test code = 3500) NOT INDIC. TITER Moises Emerson AustinTRICHOMONAS, URINE, [id number] 00:00:00* Test Item Value Reference Range Interpretation Comme nts TRICHOMONAS, NAAT, URINE (te st code = 36994) POSITIVE Moises CovingtonVAGINAL PATHOGENS DNA [id number] 00:00:00* Test Item Value Reference Range Interpretation Comme nts DONNA SPECIES (test code = 79289) NEGATIVE G. VAGINALIS (test code = 34935) NEGATIVE T. VAGINALIS (test code = 89512) NEGATIVE Moises Emerson AustinCT/NG, TMA, [id number] 00:00:00* Test Item Value Reference Range Interpretation Comme nts CHLAMYDIA, NAAT, THINPREP (t est code = 45493) NEGATIVE GONORRHEA, NAAT, THINPREP (t est code = 52621) NEGATIVE Moises Emerson AustinHERPES SIMPLEX [id number] 00:00:00* Test Item Value Reference Range Interpretation Comme nts HERPES SIMPLEX AB, IgM (test code = 26251) 0.40 INDEX Moises CovingtonHIV 1/2 4TH GEN, RFLX [id number] 00:00:00* Test Item Value Reference Range Interpretation Comme nts HIV 1/2 4TH GEN, RFLX CONF ( test code = 3514) NON-REACTIVE Moises Emerson [id number] 00:00:00* Test Item Value Reference Range Interpretation Comme nts RPR RESULT (test code = 3501) NON-REACTIVE RPR TITER (test code = 3500) NOT INDIC. TITER Moises Emerson AustinTRICHOMONAS, URINE, [id number] 00:00:00* Test Item Value Reference Range Interpretation Comme nts TRICHOMONAS, NAAT, URINE (te st code = 36699) POSITIVE Moises CovingtonVAGINAL PATHOGENS DNA [id number] 00:00:00* Test Item Value Reference Range Interpretation Comme nts DONNA SPECIES (test code = ) NEGATIVE G. VAGINALIS (test code = 82443) NEGATIVE T. VAGINALIS (test code = 00940) NEGATIVE Moises Emerson AustinCT/NG, TMA, [id number] 00:00:00* Test Item Value Reference Range Interpretation Comme nts CHLAMYDIA, NAAT, THINPREP (t est code = 74614) NEGATIVE GONORRHEA, NAAT, THINPREP (t est code = 54863) NEGATIVE Moises CovingtonHERPES SIMPLEX [id number] 00:00:00* Test Item Value Reference Range Interpretation Comme nts HERPES SIMPLEX AB, IgM (test code = 68270) 0.40 INDEX Moises CovingtonHIV 1/2 4TH GEN, RFLX [id number] 00:00:00* Test Item Value Reference Range Interpretation Comme nts HIV 1/2 4TH GEN, RFLX CONF ( test code = 3514) NON-REACTIVE Moises Emerson [id number] 00:00:00* Test Item Value Reference Range Interpretation Comme nts RPR RESULT (test code = 3501) NON-REACTIVE RPR TITER (test code = 3500) NOT INDIC. TITER Moises CovingtonTRICHOMONAS, URINE, [id number] 00:00:00* Test Item Value Reference Range Interpretation Comme nts TRICHOMONAS, NAAT, URINE (te st code = 27677) POSITIVE Moises Emerson AustinVAGINAL PATHOGENS DNA [id number] 00:00:00* Test Item Value Reference Range Interpretation Comme nts DONNA SPECIES (test code = ) NEGATIVE G. VAGINALIS (test code = 52489) NEGATIVE T. VAGINALIS (test code = 59588) NEGATIVE Moises Emerson AustinCT/NG, TMA, [id number] 00:00:00* Test Item Value Reference Range Interpretation Comme nts CHLAMYDIA, NAAT, THINPREP (t est code = 28369) NEGATIVE GONORRHEA, NAAT, THINPREP (t est code = 24533) NEGATIVE Moises CovingtonHERPES SIMPLEX [id number] 00:00:00* Test Item Value Reference Range Interpretation Comme nts HERPES SIMPLEX AB, IgM (test code = 11418) 0.40 INDEX Moises CovingtonHIV 1/2 4TH GEN, RFLX [id number] 00:00:00* Test Item Value Reference Range Interpretation Comme nts HIV 1/2 4TH GEN, RFLX CONF ( test code = 3514) NON-REACTIVE Moises Emerson [id number] 00:00:00* Test Item Value Reference Range Interpretation Comme nts RPR RESULT (test code = 3501) NON-REACTIVE RPR TITER (test code = 3500) NOT INDIC. TITER Moises CovingtonTRICHOMONAS, URINE, [id number] 00:00:00* Test Item Value Reference Range Interpretation Comme nts TRICHOMONAS, NAAT, URINE (te st code = 52126) POSITIVE Moises CovingtonVAGINAL PATHOGENS DNA [id number] 00:00:00* Test Item Value Reference Range Interpretation Comme nts DONNA SPECIES (test code = 16108) NEGATIVE G. VAGINALIS (test code = 25953) NEGATIVE T. VAGINALIS (test code = 34453) NEGATIVE Moises CovingtonHERPES SIMPLEX [id number] 00:00:00* Test Item Value Reference Range Interpretation Comme nts HERPES SIMPLEX AB, IgM (test code = 78618) 0.40 INDEX Moises Emerson AustinCT/NG, TMA, [id number] 00:00:00* Test Item Value Reference Range Interpretation Comme nts CHLAMYDIA, NAAT, THINPREP (t est code = 67191) NEGATIVE GONORRHEA, NAAT, THINPREP (t est code = 81228) NEGATIVE Moises CovingtonHIV 1/2 4TH GEN, RFLX [id number] 00:00:00* Test Item Value Reference Range Interpretation Comme nts HIV 1/2 4TH GEN, RFLX CONF ( test code = 3514) NON-REACTIVE Moises Emerson [id number] 00:00:00* Test Item Value Reference Range Interpretation Comme nts RPR RESULT (test code = 3501) NON-REACTIVE RPR TITER (test code = 3500) NOT INDIC. TITER Moises Emerson AustinTRICHOMONAS, URINE, [id number] 00:00:00* Test Item Value Reference Range Interpretation Comme nts TRICHOMONAS, NAAT, URINE (te st code = 82584) POSITIVE Moises Emerson AustinVAGINAL PATHOGENS DNA [id number] 00:00:00* Test Item Value Reference Range Interpretation Comme nts DONNA SPECIES (test code = ) NEGATIVE G. VAGINALIS (test code = ) NEGATIVE T. VAGINALIS (test code = ) NEGATIVE Moises Emerson AustinHERPES SIMPLEX [id number] 00:00:00* Test Item Value Reference Range Interpretation Comme nts HERPES SIMPLEX AB, IgM (test code = 37287) 0.40 INDEX Moises Emerson AustinCT/NG, TMA, [id number] 00:00:00* Test Item Value Reference Range Interpretation Comme nts CHLAMYDIA, NAAT, THINPREP (t est code = 31693) NEGATIVE GONORRHEA, NAAT, THINPREP (t est code = 02614) NEGATIVE Moises Emerson AustinHIV 1/2 4TH GEN, RFLX [id number] 00:00:00* Test Item Value Reference Range Interpretation Comme nts HIV 1/2 4TH GEN, RFLX CONF ( test code = 3514) NON-REACTIVE Moises Emerson [id number] 00:00:00* Test Item Value Reference Range Interpretation Comme nts RPR RESULT (test code = 3501) NON-REACTIVE RPR TITER (test code = 3500) NOT INDIC. TITER Moises Emerson AustinTRICHOMONAS, URINE, [id number] 00:00:00* Test Item Value Reference Range Interpretation Comme nts TRICHOMONAS, NAAT, URINE (te st code = 04045) POSITIVE Moises Emerson AustinVAGINAL PATHOGENS DNA [id number] 00:00:00* Test Item Value Reference Range Interpretation Comme nts DONNA SPECIES (test code = ) NEGATIVE G. VAGINALIS (test code = 68639) NEGATIVE T. VAGINALIS (test code = 18214) NEGATIVE Moises Emerson AustinCT/NG, TMA, [id number] 00:00:00* Test Item Value Reference Range Interpretation Comme nts CHLAMYDIA, NAAT, THINPREP (t est code = 62978) NEGATIVE GONORRHEA, NAAT, THINPREP (t est code = 26904) NEGATIVE Moises MillsPES SIMPLEX [id number] 00:00:00* Test Item Value Reference Range Interpretation Comme nts HERPES SIMPLEX AB, IgM (test code = 99785) 0.40 INDEX Moises CovingtonHIV 1/2 4TH GEN, RFLX [id number] 00:00:00* Test Item Value Reference Range Interpretation Comme nts HIV 1/2 4TH GEN, RFLX CONF ( test code = 3514) NON-REACTIVE Moises Emerson [id number] 00:00:00* Test Item Value Reference Range Interpretation Comme nts RPR RESULT (test code = 3501) NON-REACTIVE RPR TITER (test code = 3500) NOT INDIC. TITER Moises CovingtonTRICHOMONAS, URINE, [id number] 00:00:00* Test Item Value Reference Range Interpretation Comme nts TRICHOMONAS, NAAT, URINE (te st code = 12304) POSITIVE Moises CovingtonVAGINAL PATHOGENS DNA [id number] 00:00:00* Test Item Value Reference Range Interpretation Comme nts DONNA SPECIES (test code = 23254) NEGATIVE G. VAGINALIS (test code = 59835) NEGATIVE T. VAGINALIS (test code = 25927) NEGATIVE Moises CovingtonCT/NG, TMA, [id number] 00:00:00* Test Item Value Reference Range Interpretation Comme nts CHLAMYDIA, NAAT, THINPREP (t est code = 79327) NEGATIVE GONORRHEA, NAAT, THINPREP (t est code = 60397) NEGATIVE Moises MillsPES SIMPLEX [id number] 00:00:00* Test Item Value Reference Range Interpretation Comme nts HERPES SIMPLEX AB, IgM (test code = 68074) 0.40 INDEX Moises CovingtonHIV 1/2 4TH GEN, RFLX [id number] 00:00:00* Test Item Value Reference Range Interpretation Comme nts HIV 1/2 4TH GEN, RFLX CONF ( test code = 3514) NON-REACTIVE Moises Emerson [id number] 00:00:00* Test Item Value Reference Range Interpretation Comme nts RPR RESULT (test code = 3501) NON-REACTIVE RPR TITER (test code = 3500) NOT INDIC. TITER Moises Emerson AustinTRICHOMONAS, URINE, [id number] 00:00:00* Test Item Value Reference Range Interpretation Comme nts TRICHOMONAS, NAAT, URINE (te st code = 21614) POSITIVE Moises CovingtonVAGINAL PATHOGENS DNA [id number] 00:00:00* Test Item Value Reference Range Interpretation Comme nts DONNA SPECIES (test code = ) NEGATIVE G. VAGINALIS (test code = 20259) NEGATIVE T. VAGINALIS (test code = [address]) NEGATIVE Moises CovingtonHERPES SIMPLEX [id number] 00:00:00* Test Item Value Reference Range Interpretation Comme nts HERPES SIMPLEX AB, IgM (test code = 75743) 0.40 INDEX Moises Emerson AustinCT/NG, TMA, [id number] 00:00:00* Test Item Value Reference Range Interpretation Comme nts CHLAMYDIA, NAAT, THINPREP (t est code = 42076) NEGATIVE GONORRHEA, NAAT, THINPREP (t est code = 99025) NEGATIVE Moises CovingtonHIV 1/2 4TH GEN, RFLX [id number] 00:00:00* Test Item Value Reference Range Interpretation Comme nts HIV 1/2 4TH GEN, RFLX CONF ( test code = 3514) NON-REACTIVE Moises [id number] 00:00:00* Test Item Value Reference Range Interpretation Comme nts RPR RESULT (test code = 3501) NON-REACTIVE RPR TITER (test code = 3500) NOT INDIC. TITER Moises CovingtonTRICHOMONAS, URINE, [id number] 00:00:00* Test Item Value Reference Range Interpretation Comme nts TRICHOMONAS, NAAT, URINE (te st code = 81142) POSITIVE Moises CovingtonVAGINAL PATHOGENS DNA [id number] 00:00:00* Test Item Value Reference Range Interpretation Comme nts DONNA SPECIES (test code = 18108) NEGATIVE G. VAGINALIS (test code = 11199) NEGATIVE T. VAGINALIS (test code = 83880) NEGATIVE Moises Emerson AustinCT/NG, TMA, [id number] 00:00:00* Test Item Value Reference Range Interpretation Comme nts CHLAMYDIA, NAAT, THINPREP (t est code = 40853) NEGATIVE GONORRHEA, NAAT, THINPREP (t est code = 96558) NEGATIVE Moises CovingtonHERPES SIMPLEX [id number] 00:00:00* Test Item Value Reference Range Interpretation Comme donal HERPES SIMPLEX AB, IgM (test code = 58011) 0.40 INDEX Moises CovingtonHIV 1/2 4TH GEN, RFLX [id number] 00:00:00* Test Item Value Reference Range Interpretation Comme donal HIV 1/2 4TH GEN, RFLX CONF ( test code = 3514) NON-REACTIVE Moises CovingtonLIPID [id number] 00:00:00* Test Item Value Reference Range Interpretation Comme nts CHOLESTEROL (test code = 2210) 264 MG/DL TRIGLYCERIDES (test code = 2232) 194 MG/DL HDL CHOLESTEROL (test code = 2220) 55 MG/DL CALC LDL CHOL (test code = 2237) 174 MG/DL RISK RATIO LDL/HDL (test cod e = 2238) 3.16 RATIO Moises CovingtonTSH, THIRD [id number] 00:00:00* Test Item Value Reference Range Interpretation Comme donal TSH, THIRD GENERATION (test code = 2821) 3.110 UIU/ML Moises CovingtonHEMOGLOBIN [id number] 00:00:00* Test Item Value Reference Range Interpretation Comme donal HEMOGLOBIN A1c (test code = 89091) 6.2 % Moises CovingtonURINALYSIS W/REFLEX [id number] 00:00:00* Test Item Value Reference Range Interpretation Comme donal COLOR (test code = 1501) YELLOW APPEARANCE (test code = 1502) TURBID SPECIFIC GRAVITY (test code = 1503) 1.009 LEUKOCYTE ESTERASE (test cod e = 1504) TRACE NITRITE (test code = 1505) NEGATIVE pH (test code = 1506) 5.5 PROTEIN (test code = 1507) NEGATIVE GLUCOSE (test code = 1508) NEGATIVE KETONES (test code = 1509) NEGATIVE UROBILINOGEN (test code = 1510) 0.2 MG/DL BILIRUBIN (test code = 1511) NEGATIVE OCCULT BLOOD (test code = 1512) TRACE WHITE BLOOD CELLS (test code = 1513) 0-5 /HPF RED BLOOD CELLS (test code = 1514) 0-2 /HPF EPITHELIAL CELLS (test code = 85127) 0-5 /HPF BACTERIA (test code = 1515) NONE SEEN CASTS, HYALINE (test code = 1517) NONE SEEN Moises CovingtonALBUMIN/CREATININE RATIO, RANDOM [id number] 00:00:00* Test Item Value Reference Range Interpretation Comme nts CREATININE, URINE, CONC. (te st code = 2072) 64.2 MG/DL ALBUMIN, URINE, RANDOM (test code = 30096) 2.4 MG/DL CALC ALBUMIN/CREAT, RND (markos t code = 14954) 37 MG/G Moises CovingtonCBC W/AUTO [id number] 00:00:00* Test Item Value Reference Range Interpretation Comme nts WBC (test code = 1001) 9.0 K/UL RBC (test code = 1002) 5.12 M/UL HEMOGLOBIN (test code = 1003) 13.4 G/DL HEMATOCRIT (test code = 1004) 41.0 % MCV (test code = 1005) 80.1 fL MCH (test code = 1006) 26.2 PG MCHC (test code = 1007) 32.7 G/DL RDW (test code = 1038) 14.8 % NEUTROPHILS (test code = 1008) 47.9 % LYMPHOCYTES (test code = 1010) 40.4 % MONOCYTES (test code = 1011) 6.2 % EOSINOPHILS (test code = 1012) 4.4 % BASOPHILS (test code = 1013) 0.7 % IMMATURE GRANULOCYTES (test code = 1036) 0.4 % NUCLEATED RBCS (test code = 1065) 0.0 /100WBC'S PLATELET COUNT (test code = 1015) 266 K/UL ABSOLUTE NEUTROPHILS (test c ode = 1066) 4.30 K/UL ABSOLUTE LYMPHOCYTES (test c ode = 1067) 3.63 K/UL ABSOLUTE MONOCYTES (test cod e = 1068) 0.56 K/UL ABSOLUTE EOSINOPHILS (test c ode = 1040) 0.40 K/UL ABSOLUTE BASOPHILS (test cod e = 1069) 0.06 K/UL ABS IMMATURE GRANULOCYTES (t est code = 1020) 0.04 K/UL ABS NUCLEATED RBCS (test cod e = 67084) 0.00 K/UL Moises CovingtonCOMPREHENSIVE METABOLIC [id number] 00:00:00* Test Item Value Reference Range Interpretation Comme nts GLUCOSE (test code = 2217) 93 MG/DL BUN (test code = 2208) 14 MG/DL CREATININE (test code = 2214) 1.30 MG/DL eGFR (2020 CKD-EPI) (test co de = 23381) 46 ML/MIN/1.73 CALC BUN/CREAT (test code = 2235) 11 RATIO SODIUM (test code = 223) 140 MEQ/L POTASSIUM (test code = 2228) 4.8 MEQ/L CHLORIDE (test code = 2215) 103 MEQ/L CARBON DIOXIDE (test code = 2206) 26 MEQ/L CALCIUM (test code = 2209) 10.6 MG/DL PROTEIN, TOTAL (test code = 222) 7.9 G/DL ALBUMIN (test code = 2201) 4.8 G/DL CALC GLOBULIN (test code = 2240) 3.1 G/DL CALC A/G RATIO (test code = 2234) 1.5 RATIO BILIRUBIN, TOTAL (test code = 2207) <0.2 MG/DL ALKALINE PHOSPHATASE (test code = 2204) 99 U/L AST (test code = 2218) 33 U/L ALT (test code = 2219) 40 U/L Moises CovingtonLIPID [id number] 00:00:00* Test Item Value Reference Range Interpretation Comme nts CHOLESTEROL (test code = 2210) 264 MG/DL TRIGLYCERIDES (test code = 2232) 194 MG/DL HDL CHOLESTEROL (test code = 2220) 55 MG/DL CALC LDL CHOL (test code = 2237) 174 MG/DL RISK RATIO LDL/HDL (test cod e = 2238) 3.16 RATIO Moises CovingtonTSH, THIRD [id number] 00:00:00* Test Item Value Reference Range Interpretation Comme nts TSH, THIRD GENERATION (test code = 2821) 3.110 UIU/ML Moises CovingtonHEMOGLOBIN [id number] 00:00:00* Test Item Value Reference Range Interpretation Comme nts HEMOGLOBIN A1c (test code = 56450) 6.2 % Moises Emerson AdriaURINALYSIS W/REFLEX [id number] 00:00:00* Test Item Value Reference Range Interpretation Comme nts COLOR (test code = 1501) YELLOW APPEARANCE (test code = 1502) TURBID SPECIFIC GRAVITY (test code = 1503) 1.009 LEUKOCYTE ESTERASE (test cod e = 1504) TRACE NITRITE (test code = 1505) NEGATIVE pH (test code = 1506) 5.5 PROTEIN (test code = 1507) NEGATIVE GLUCOSE (test code = 1508) NEGATIVE KETONES (test code = 1509) NEGATIVE UROBILINOGEN (test code = 1510) 0.2 MG/DL BILIRUBIN (test code = 1511) NEGATIVE OCCULT BLOOD (test code = 1512) TRACE WHITE BLOOD CELLS (test code = 1513) 0-5 /HPF RED BLOOD CELLS (test code = 1514) 0-2 /HPF EPITHELIAL CELLS (test code = 74618) 0-5 /HPF BACTERIA (test code = 1515) NONE SEEN CASTS, HYALINE (test code = 1517) NONE SEEN Moises CovingtonALBUMIN/CREATININE RATIO, RANDOM [id number] 00:00:00* Test Item Value Reference Range Interpretation Comme nts CREATININE, URINE, CONC. (te st code = 2072) 64.2 MG/DL ALBUMIN, URINE, RANDOM (test code = 05831) 2.4 MG/DL CALC ALBUMIN/CREAT, RND (markos t code = 77265) 37 MG/G Moises Emerson AdriaCBC W/AUTO [id number] 00:00:00* Test Item Value Reference Range Interpretation Comme nts WBC (test code = 1001) 9.0 K/UL RBC (test code = 1002) 5.12 M/UL HEMOGLOBIN (test code = 1003) 13.4 G/DL HEMATOCRIT (test code = 1004) 41.0 % MCV (test code = 1005) 80.1 fL MCH (test code = 1006) 26.2 PG MCHC (test code = 1007) 32.7 G/DL RDW (test code = 1038) 14.8 % NEUTROPHILS (test code = 1008) 47.9 % LYMPHOCYTES (test code = 1010) 40.4 % MONOCYTES (test code = 1011) 6.2 % EOSINOPHILS (test code = 1012) 4.4 % BASOPHILS (test code = 1013) 0.7 % IMMATURE GRANULOCYTES (test code = 1036) 0.4 % NUCLEATED RBCS (test code = 1065) 0.0 /100WBC'S PLATELET COUNT (test code = 1015) 266 K/UL ABSOLUTE NEUTROPHILS (test c ode = 1066) 4.30 K/UL ABSOLUTE LYMPHOCYTES (test c ode = 1067) 3.63 K/UL ABSOLUTE MONOCYTES (test cod e = 1068) 0.56 K/UL ABSOLUTE EOSINOPHILS (test c ode = 1040) 0.40 K/UL ABSOLUTE BASOPHILS (test cod e = 1069) 0.06 K/UL ABS IMMATURE GRANULOCYTES (t est code = 1020) 0.04 K/UL ABS NUCLEATED RBCS (test cod e = 82938) 0.00 K/UL Moises CovingtonCOMPREHENSIVE METABOLIC [id number] 00:00:00* Test Item Value Reference Range Interpretation Comme nts GLUCOSE (test code = 2217) 93 MG/DL BUN (test code = 2208) 14 MG/DL CREATININE (test code = 2214) 1.30 MG/DL eGFR (2020 CKD-EPI) (test co de = 08779) 46 ML/MIN/1.73 CALC BUN/CREAT (test code = 2235) 11 RATIO SODIUM (test code = 2231) 140 MEQ/L POTASSIUM (test code = 2228) 4.8 MEQ/L CHLORIDE (test code = 2215) 103 MEQ/L CARBON DIOXIDE (test code = 2206) 26 MEQ/L CALCIUM (test code = 2209) 10.6 MG/DL PROTEIN, TOTAL (test code = 2229) 7.9 G/DL ALBUMIN (test code = 2201) 4.8 G/DL CALC GLOBULIN (test code = 2240) 3.1 G/DL CALC A/G RATIO (test code = 2234) 1.5 RATIO BILIRUBIN, TOTAL (test code = 2207) <0.2 MG/DL ALKALINE PHOSPHATASE (test code = 2204) 99 U/L AST (test code = 2218) 33 U/L ALT (test code = 2219) 40 U/L Moises CovingtonLIPID [id number] 00:00:00* Test Item Value Reference Range Interpretation Comme nts CHOLESTEROL (test code = 2210) 264 MG/DL TRIGLYCERIDES (test code = 2232) 194 MG/DL HDL CHOLESTEROL (test code = 2220) 55 MG/DL CALC LDL CHOL (test code = 2237) 174 MG/DL RISK RATIO LDL/HDL (test cod e = 2238) 3.16 RATIO Moises SanzH, THIRD [id number] 00:00:00* Test Item Value Reference Range Interpretation Comme donal TSH, THIRD GENERATION (test code = 2821) 3.110 UIU/ML Moises CovingtonHEMOGLOBIN [id number] 00:00:00* Test Item Value Reference Range Interpretation Comme donal HEMOGLOBIN A1c (test code = 60554) 6.2 % Moises CovingtonURINALYSIS W/REFLEX [id number] 00:00:00* Test Item Value Reference Range Interpretation Comme nts COLOR (test code = 1501) YELLOW APPEARANCE (test code = 1502) TURBID SPECIFIC GRAVITY (test code = 1503) 1.009 LEUKOCYTE ESTERASE (test cod e = 1504) TRACE NITRITE (test code = 1505) NEGATIVE pH (test code = 1506) 5.5 PROTEIN (test code = 1507) NEGATIVE GLUCOSE (test code = 1508) NEGATIVE KETONES (test code = 1509) NEGATIVE UROBILINOGEN (test code = 1510) 0.2 MG/DL BILIRUBIN (test code = 1511) NEGATIVE OCCULT BLOOD (test code = 1512) TRACE WHITE BLOOD CELLS (test code = 1513) 0-5 /HPF RED BLOOD CELLS (test code = 1514) 0-2 /HPF EPITHELIAL CELLS (test code = 95728) 0-5 /HPF BACTERIA (test code = 1515) NONE SEEN CASTS, HYALINE (test code = 1517) NONE SEEN Moises CovingtonALBUMIN/CREATININE RATIO, RANDOM [id number] 00:00:00* Test Item Value Reference Range Interpretation Comme donal CREATININE, URINE, CONC. (te st code = 2072) 64.2 MG/DL ALBUMIN, URINE, RANDOM (test code = 81379) 2.4 MG/DL CALC ALBUMIN/CREAT, RND (markos t code = 90087) 37 MG/G Moises CovingtonCBC W/AUTO [id number] 00:00:00* Test Item Value Reference Range Interpretation Comme donal WBC (test code = 1001) 9.0 K/UL RBC (test code = 1002) 5.12 M/UL HEMOGLOBIN (test code = 1003) 13.4 G/DL HEMATOCRIT (test code = 1004) 41.0 % MCV (test code = 1005) 80.1 fL MCH (test code = 1006) 26.2 PG MCHC (test code = 1007) 32.7 G/DL RDW (test code = 1038) 14.8 % NEUTROPHILS (test code = 1008) 47.9 % LYMPHOCYTES (test code = 1010) 40.4 % MONOCYTES (test code = 1011) 6.2 % EOSINOPHILS (test code = 1012) 4.4 % BASOPHILS (test code = 1013) 0.7 % IMMATURE GRANULOCYTES (test code = 1036) 0.4 % NUCLEATED RBCS (test code = 1065) 0.0 /100WBC'S PLATELET COUNT (test code = 1015) 266 K/UL ABSOLUTE NEUTROPHILS (test c ode = 1066) 4.30 K/UL ABSOLUTE LYMPHOCYTES (test c ode = 1067) 3.63 K/UL ABSOLUTE MONOCYTES (test cod e = 1068) 0.56 K/UL ABSOLUTE EOSINOPHILS (test c ode = 1040) 0.40 K/UL ABSOLUTE BASOPHILS (test cod e = 1069) 0.06 K/UL ABS IMMATURE GRANULOCYTES (t est code = 1020) 0.04 K/UL ABS NUCLEATED RBCS (test cod e = 35690) 0.00 K/UL Moises Emerson WoodruffCOMPREHENSIVE METABOLIC [id number] 00:00:00* Test Item Value Reference Range Interpretation Comme nts GLUCOSE (test code = 2217) 93 MG/DL BUN (test code = 2208) 14 MG/DL CREATININE (test code = 2214) 1.30 MG/DL eGFR (2020 CKD-EPI) (test co de = 91102) 46 ML/MIN/1.73 CALC BUN/CREAT (test code = 2235) 11 RATIO SODIUM (test code = 2231) 140 MEQ/L POTASSIUM (test code = 2228) 4.8 MEQ/L CHLORIDE (test code = 2215) 103 MEQ/L CARBON DIOXIDE (test code = 2206) 26 MEQ/L CALCIUM (test code = 2209) 10.6 MG/DL PROTEIN, TOTAL (test code = 2229) 7.9 G/DL ALBUMIN (test code = 2201) 4.8 G/DL CALC GLOBULIN (test code = 2240) 3.1 G/DL CALC A/G RATIO (test code = 2234) 1.5 RATIO BILIRUBIN, TOTAL (test code = 2207) <0.2 MG/DL ALKALINE PHOSPHATASE (test code = 2204) 99 U/L AST (test code = 2218) 33 U/L ALT (test code = 2219) 40 U/L Moises CovingtonLIPID [id number] 00:00:00* Test Item Value Reference Range Interpretation Comme nts CHOLESTEROL (test code = 2210) 264 MG/DL TRIGLYCERIDES (test code = 2232) 194 MG/DL HDL CHOLESTEROL (test code = 2220) 55 MG/DL CALC LDL CHOL (test code = 2237) 174 MG/DL RISK RATIO LDL/HDL (test cod e = 2238) 3.16 RATIO Moises CovingtonTSH, THIRD [id number] 00:00:00* Test Item Value Reference Range Interpretation Comme donal TSH, THIRD GENERATION (test code = 2821) 3.110 UIU/ML Moises CovingtonHEMOGLOBIN [id number] 00:00:00* Test Item Value Reference Range Interpretation Comme donal HEMOGLOBIN A1c (test code = 27715) 6.2 % Moises CovingtonURINALYSIS W/REFLEX [id number] 00:00:00* Test Item Value Reference Range Interpretation Comme nts COLOR (test code = 1501) YELLOW APPEARANCE (test code = 1502) TURBID SPECIFIC GRAVITY (test code = 1503) 1.009 LEUKOCYTE ESTERASE (test cod e = 1504) TRACE NITRITE (test code = 1505) NEGATIVE pH (test code = 1506) 5.5 PROTEIN (test code = 1507) NEGATIVE GLUCOSE (test code = 1508) NEGATIVE KETONES (test code = 1509) NEGATIVE UROBILINOGEN (test code = 1510) 0.2 MG/DL BILIRUBIN (test code = 1511) NEGATIVE OCCULT BLOOD (test code = 1512) TRACE WHITE BLOOD CELLS (test code = 1513) 0-5 /HPF RED BLOOD CELLS (test code = 1514) 0-2 /HPF EPITHELIAL CELLS (test code = 74152) 0-5 /HPF BACTERIA (test code = 1515) NONE SEEN CASTS, HYALINE (test code = 1517) NONE SEEN Moises CovingtonALBUMIN/CREATININE RATIO, RANDOM [id number] 00:00:00* Test Item Value Reference Range Interpretation Comme nts CREATININE, URINE, CONC. (te st code = 2072) 64.2 MG/DL ALBUMIN, URINE, RANDOM (test code = 92469) 2.4 MG/DL CALC ALBUMIN/CREAT, RND (markos t code = 64278) 37 MG/G Moises CovingtonCBC W/AUTO [id number] 00:00:00* Test Item Value Reference Range Interpretation Comme nts WBC (test code = 1001) 9.0 K/UL RBC (test code = 1002) 5.12 M/UL HEMOGLOBIN (test code = 1003) 13.4 G/DL HEMATOCRIT (test code = 1004) 41.0 % MCV (test code = 1005) 80.1 fL MCH (test code = 1006) 26.2 PG MCHC (test code = 1007) 32.7 G/DL RDW (test code = 1038) 14.8 % NEUTROPHILS (test code = 1008) 47.9 % LYMPHOCYTES (test code = 1010) 40.4 % MONOCYTES (test code = 1011) 6.2 % EOSINOPHILS (test code = 1012) 4.4 % BASOPHILS (test code = 1013) 0.7 % IMMATURE GRANULOCYTES (test code = 1036) 0.4 % NUCLEATED RBCS (test code = 1065) 0.0 /100WBC'S PLATELET COUNT (test code = 1015) 266 K/UL ABSOLUTE NEUTROPHILS (test c ode = 1066) 4.30 K/UL ABSOLUTE LYMPHOCYTES (test c ode = 1067) 3.63 K/UL ABSOLUTE MONOCYTES (test cod e = 1068) 0.56 K/UL ABSOLUTE EOSINOPHILS (test c ode = 1040) 0.40 K/UL ABSOLUTE BASOPHILS (test cod e = 1069) 0.06 K/UL ABS IMMATURE GRANULOCYTES (t est code = 1020) 0.04 K/UL ABS NUCLEATED RBCS (test cod e = 94470) 0.00 K/UL Moises CovingtonCOMPREHENSIVE METABOLIC [id number] 00:00:00* Test Item Value Reference Range Interpretation Comme nts GLUCOSE (test code = 2217) 93 MG/DL BUN (test code = 2208) 14 MG/DL CREATININE (test code = 2214) 1.30 MG/DL eGFR (2020 CKD-EPI) (test co de = 17602) 46 ML/MIN/1.73 CALC BUN/CREAT (test code = 2235) 11 RATIO SODIUM (test code = 2231) 140 MEQ/L POTASSIUM (test code = 2228) 4.8 MEQ/L CHLORIDE (test code = 2215) 103 MEQ/L CARBON DIOXIDE (test code = 2206) 26 MEQ/L CALCIUM (test code = 2209) 10.6 MG/DL PROTEIN, TOTAL (test code = 2229) 7.9 G/DL ALBUMIN (test code = 2201) 4.8 G/DL CALC GLOBULIN (test code = 2240) 3.1 G/DL CALC A/G RATIO (test code = 2234) 1.5 RATIO BILIRUBIN, TOTAL (test code = 2207) <0.2 MG/DL ALKALINE PHOSPHATASE (test code = 2204) 99 U/L AST (test code = 2218) 33 U/L ALT (test code = 2219) 40 U/L Moises CovingtonLIPID [id number] 00:00:00* Test Item Value Reference Range Interpretation Comme nts CHOLESTEROL (test code = 2210) 264 MG/DL TRIGLYCERIDES (test code = 2232) 194 MG/DL HDL CHOLESTEROL (test code = 2220) 55 MG/DL CALC LDL CHOL (test code = 2237) 174 MG/DL RISK RATIO LDL/HDL (test cod e = 2238) 3.16 RATIO Moises CovingtonTSH, THIRD [id number] 00:00:00* Test Item Value Reference Range Interpretation Comme [facility] TSH, THIRD GENERATION (test code = 2821) 3.110 UIU/ML Moises CovingtonHEMOGLOBIN [id number] 00:00:00* Test Item Value Reference Range Interpretation Comme nts HEMOGLOBIN A1c (test code = 51289) 6.2 % Moises CovingtonURINALYSIS W/REFLEX [id number] 00:00:00* Test Item Value Reference Range Interpretation Comme nts COLOR (test code = 1501) YELLOW APPEARANCE (test code = 1502) TURBID SPECIFIC GRAVITY (test code = 1503) 1.009 LEUKOCYTE ESTERASE (test cod e = 1504) TRACE NITRITE (test code = 1505) NEGATIVE pH (test code = 1506) 5.5 PROTEIN (test code = 1507) NEGATIVE GLUCOSE (test code = 1508) NEGATIVE KETONES (test code = 1509) NEGATIVE UROBILINOGEN (test code = 1510) 0.2 MG/DL BILIRUBIN (test code = 1511) NEGATIVE OCCULT BLOOD (test code = 1512) TRACE WHITE BLOOD CELLS (test code = 1513) 0-5 /HPF RED BLOOD CELLS (test code = 1514) 0-2 /HPF EPITHELIAL CELLS (test code = 52271) 0-5 /HPF BACTERIA (test code = 1515) NONE SEEN CASTS, HYALINE (test code = 1517) NONE SEEN Moises CovingtonALBUMIN/CREATININE RATIO, RANDOM [id number] 00:00:00* Test Item Value Reference Range Interpretation Comme nts CREATININE, URINE, CONC. (te st code = 2072) 64.2 MG/DL ALBUMIN, URINE, RANDOM (test code = 61392) 2.4 MG/DL CALC ALBUMIN/CREAT, RND (markos t code = 22632) 37 MG/G Moises CovingtonCBC W/AUTO [id number] 00:00:00* Test Item Value Reference Range Interpretation Comme nts WBC (test code = 1001) 9.0 K/UL RBC (test code = 1002) 5.12 M/UL HEMOGLOBIN (test code = 1003) 13.4 G/DL HEMATOCRIT (test code = 1004) 41.0 % MCV (test code = 1005) 80.1 fL MCH (test code = 1006) 26.2 PG MCHC (test code = 1007) 32.7 G/DL RDW (test code = 1038) 14.8 % NEUTROPHILS (test code = 1008) 47.9 % LYMPHOCYTES (test code = 1010) 40.4 % MONOCYTES (test code = 1011) 6.2 % EOSINOPHILS (test code = 1012) 4.4 % BASOPHILS (test code = 1013) 0.7 % IMMATURE GRANULOCYTES (test code = 1036) 0.4 % NUCLEATED RBCS (test code = 1065) 0.0 /100WBC'S PLATELET COUNT (test code = 1015) 266 K/UL ABSOLUTE NEUTROPHILS (test c ode = 1066) 4.30 K/UL ABSOLUTE LYMPHOCYTES (test c ode = 1067) 3.63 K/UL ABSOLUTE MONOCYTES (test cod e = 1068) 0.56 K/UL ABSOLUTE EOSINOPHILS (test c ode = 1040) 0.40 K/UL ABSOLUTE BASOPHILS (test cod e = 1069) 0.06 K/UL ABS IMMATURE GRANULOCYTES (t est code = 1020) 0.04 K/UL ABS NUCLEATED RBCS (test cod e = 15237) 0.00 K/UL Moises CovingtonCOMPREHENSIVE METABOLIC [id number] 00:00:00* Test Item Value Reference Range Interpretation Comme nts GLUCOSE (test code = 2217) 93 MG/DL BUN (test code = 2208) 14 MG/DL CREATININE (test code = 2214) 1.30 MG/DL eGFR (2020 CKD-EPI) (test co de = 66982) 46 ML/MIN/1.73 CALC BUN/CREAT (test code = 2235) 11 RATIO SODIUM (test code = 2231) 140 MEQ/L POTASSIUM (test code = 2228) 4.8 MEQ/L CHLORIDE (test code = 2215) 103 MEQ/L CARBON DIOXIDE (test code = 2206) 26 MEQ/L CALCIUM (test code = 2209) 10.6 MG/DL PROTEIN, TOTAL (test code = 2229) 7.9 G/DL ALBUMIN (test code = 2201) 4.8 G/DL CALC GLOBULIN (test code = 2240) 3.1 G/DL CALC A/G RATIO (test code = 2234) 1.5 RATIO BILIRUBIN, TOTAL (test code = 2207) <0.2 MG/DL ALKALINE PHOSPHATASE (test code = 2204) 99 U/L AST (test code = 2218) 33 U/L ALT (test code = 2219) 40 U/L Moises CovingtonLIPID [id number] 00:00:00* Test Item Value Reference Range Interpretation Comme nts CHOLESTEROL (test code = 2210) 264 MG/DL TRIGLYCERIDES (test code = 2232) 194 MG/DL HDL CHOLESTEROL (test code = 2220) 55 MG/DL CALC LDL CHOL (test code = 2237) 174 MG/DL RISK RATIO LDL/HDL (test cod e = 2238) 3.16 RATIO Moises CovingtonTSH, THIRD [id number] 00:00:00* Test Item Value Reference Range Interpretation Comme nts TSH, THIRD GENERATION (test code = 2821) 3.110 UIU/ML Moises F AustinHEMOGLOBIN [id number] 00:00:00* Test Item Value Reference Range Interpretation Comme nts HEMOGLOBIN A1c (test code = 96750) 6.2 % Moises Emerson AustinURINALYSIS W/REFLEX [id number] 00:00:00* Test Item Value Reference Range Interpretation Comme nts COLOR (test code = 1501) YELLOW APPEARANCE (test code = 1502) TURBID SPECIFIC GRAVITY (test code = 1503) 1.009 LEUKOCYTE ESTERASE (test cod e = 1504) TRACE NITRITE (test code = 1505) NEGATIVE pH (test code = 1506) 5.5 PROTEIN (test code = 1507) NEGATIVE GLUCOSE (test code = 1508) NEGATIVE KETONES (test code = 1509) NEGATIVE UROBILINOGEN (test code = 1510) 0.2 MG/DL BILIRUBIN (test code = 1511) NEGATIVE OCCULT BLOOD (test code = 1512) TRACE WHITE BLOOD CELLS (test code = 1513) 0-5 /HPF RED BLOOD CELLS (test code = 1514) 0-2 /HPF EPITHELIAL CELLS (test code = 45299) 0-5 /HPF BACTERIA (test code = 1515) NONE SEEN CASTS, HYALINE (test code = 1517) NONE SEEN Moises Emerson AustinALBUMIN/CREATININE RATIO, RANDOM [id number] 00:00:00* Test Item Value Reference Range Interpretation Comme nts CREATININE, URINE, CONC. (te st code = 2072) 64.2 MG/DL ALBUMIN, URINE, RANDOM (test code = 59687) 2.4 MG/DL CALC ALBUMIN/CREAT, RND (markos t code = 44131) 37 MG/G Moises Emerson AustinCBC W/AUTO [id number] 00:00:00* Test Item Value Reference Range Interpretation Comme nts WBC (test code = 1001) 9.0 K/UL RBC (test code = 1002) 5.12 M/UL HEMOGLOBIN (test code = 1003) 13.4 G/DL HEMATOCRIT (test code = 1004) 41.0 % MCV (test code = 1005) 80.1 fL MCH (test code = 1006) 26.2 PG MCHC (test code = 1007) 32.7 G/DL RDW (test code = 1038) 14.8 % NEUTROPHILS (test code = 1008) 47.9 % LYMPHOCYTES (test code = 1010) 40.4 % MONOCYTES (test code = 1011) 6.2 % EOSINOPHILS (test code = 1012) 4.4 % BASOPHILS (test code = 1013) 0.7 % IMMATURE GRANULOCYTES (test code = 1036) 0.4 % NUCLEATED RBCS (test code = 1065) 0.0 /100WBC'S PLATELET COUNT (test code = 1015) 266 K/UL ABSOLUTE NEUTROPHILS (test c ode = 1066) 4.30 K/UL ABSOLUTE LYMPHOCYTES (test c ode = 1067) 3.63 K/UL ABSOLUTE MONOCYTES (test cod e = 1068) 0.56 K/UL ABSOLUTE EOSINOPHILS (test c ode = 1040) 0.40 K/UL ABSOLUTE BASOPHILS (test cod e = 1069) 0.06 K/UL ABS IMMATURE GRANULOCYTES (t est code = 1020) 0.04 K/UL ABS NUCLEATED RBCS (test cod e = 58712) 0.00 K/UL Moises CovingtonCOMPREHENSIVE METABOLIC [id number] 00:00:00* Test Item Value Reference Range Interpretation Comme nts GLUCOSE (test code = 2217) 93 MG/DL BUN (test code = 2208) 14 MG/DL CREATININE (test code = 2214) 1.30 MG/DL eGFR (2020 CKD-EPI) (test co de = 00125) 46 ML/MIN/1.73 CALC BUN/CREAT (test code = 2235) 11 RATIO SODIUM (test code = 2231) 140 MEQ/L POTASSIUM (test code = 2228) 4.8 MEQ/L CHLORIDE (test code = 2215) 103 MEQ/L CARBON DIOXIDE (test code = 2206) 26 MEQ/L CALCIUM (test code = 2209) 10.6 MG/DL PROTEIN, TOTAL (test code = 2229) 7.9 G/DL ALBUMIN (test code = 2201) 4.8 G/DL CALC GLOBULIN (test code = 2240) 3.1 G/DL CALC A/G RATIO (test code = 2234) 1.5 RATIO BILIRUBIN, TOTAL (test code = 2207) <0.2 MG/DL ALKALINE PHOSPHATASE (test code = 2204) 99 U/L AST (test code = 2218) 33 U/L ALT (test code = 2219) 40 U/L Moises F AustinLIPID [id number] 00:00:00* Test Item Value Reference Range Interpretation Comme nts CHOLESTEROL (test code = 2210) 264 MG/DL TRIGLYCERIDES (test code = 2232) 194 MG/DL HDL CHOLESTEROL (test code = 2220) 55 MG/DL CALC LDL CHOL (test code = 2237) 174 MG/DL RISK RATIO LDL/HDL (test cod e = 2238) 3.16 RATIO Moises CovingtonTSH, THIRD [id number] 00:00:00* Test Item Value Reference Range Interpretation Comme donal TSH, THIRD GENERATION (test code = 2821) 3.110 UIU/ML Moises CovingtonHEMOGLOBIN [id number] 00:00:00* Test Item Value Reference Range Interpretation Comme donal HEMOGLOBIN A1c (test code = 33287) 6.2 % Moises CovingtonURINALYSIS W/REFLEX [id number] 00:00:00* Test Item Value Reference Range Interpretation Comme nts COLOR (test code = 1501) YELLOW APPEARANCE (test code = 1502) TURBID SPECIFIC GRAVITY (test code = 1503) 1.009 LEUKOCYTE ESTERASE (test cod e = 1504) TRACE NITRITE (test code = 1505) NEGATIVE pH (test code = 1506) 5.5 PROTEIN (test code = 1507) NEGATIVE GLUCOSE (test code = 1508) NEGATIVE KETONES (test code = 1509) NEGATIVE UROBILINOGEN (test code = 1510) 0.2 MG/DL BILIRUBIN (test code = 1511) NEGATIVE OCCULT BLOOD (test code = 1512) TRACE WHITE BLOOD CELLS (test code = 1513) 0-5 /HPF RED BLOOD CELLS (test code = 1514) 0-2 /HPF EPITHELIAL CELLS (test code = 96887) 0-5 /HPF BACTERIA (test code = 1515) NONE SEEN CASTS, HYALINE (test code = 1517) NONE SEEN Moises CovingtonALBUMIN/CREATININE RATIO, RANDOM [id number] 00:00:00* Test Item Value Reference Range Interpretation Comme donal CREATININE, URINE, CONC. (te st code = 2072) 64.2 MG/DL ALBUMIN, URINE, RANDOM (test code = 40954) 2.4 MG/DL CALC ALBUMIN/CREAT, RND (markos t code = 26750) 37 MG/G Moises CovingtonCBC W/AUTO [id number] 00:00:00* Test Item Value Reference Range Interpretation Comme nts WBC (test code = 1001) 9.0 K/UL RBC (test code = 1002) 5.12 M/UL HEMOGLOBIN (test code = 1003) 13.4 G/DL HEMATOCRIT (test code = 1004) 41.0 % MCV (test code = 1005) 80.1 fL MCH (test code = 1006) 26.2 PG MCHC (test code = 1007) 32.7 G/DL RDW (test code = 1038) 14.8 % NEUTROPHILS (test code = 1008) 47.9 % LYMPHOCYTES (test code = 1010) 40.4 % MONOCYTES (test code = 1011) 6.2 % EOSINOPHILS (test code = 1012) 4.4 % BASOPHILS (test code = 1013) 0.7 % IMMATURE GRANULOCYTES (test code = 1036) 0.4 % NUCLEATED RBCS (test code = 1065) 0.0 /100WBC'S PLATELET COUNT (test code = 1015) 266 K/UL ABSOLUTE NEUTROPHILS (test c ode = 1066) 4.30 K/UL ABSOLUTE LYMPHOCYTES (test c ode = 1067) 3.63 K/UL ABSOLUTE MONOCYTES (test cod e = 1068) 0.56 K/UL ABSOLUTE EOSINOPHILS (test c ode = 1040) 0.40 K/UL ABSOLUTE BASOPHILS (test cod e = 1069) 0.06 K/UL ABS IMMATURE GRANULOCYTES (t est code = 1020) 0.04 K/UL ABS NUCLEATED RBCS (test cod e = 95286) 0.00 K/UL Moises Emerson AdriaCOMPREHENSIVE METABOLIC [id number] 00:00:00* Test Item Value Reference Range Interpretation Comme nts GLUCOSE (test code = 2217) 93 MG/DL BUN (test code = 2208) 14 MG/DL CREATININE (test code = 2214) 1.30 MG/DL eGFR (2020 CKD-EPI) (test co de = 39485) 46 ML/MIN/1.73 CALC BUN/CREAT (test code = 2235) 11 RATIO SODIUM (test code = 2231) 140 MEQ/L POTASSIUM (test code = 2228) 4.8 MEQ/L CHLORIDE (test code = 2215) 103 MEQ/L CARBON DIOXIDE (test code = 2206) 26 MEQ/L CALCIUM (test code = 2209) 10.6 MG/DL PROTEIN, TOTAL (test code = 2229) 7.9 G/DL ALBUMIN (test code = 2201) 4.8 G/DL CALC GLOBULIN (test code = 2240) 3.1 G/DL CALC A/G RATIO (test code = 2234) 1.5 RATIO BILIRUBIN, TOTAL (test code = 2207) <0.2 MG/DL ALKALINE PHOSPHATASE (test code = 2204) 99 U/L AST (test code = 2218) 33 U/L ALT (test code = 2219) 40 U/L Moises CovingtonLIPID [id number] 00:00:00* Test Item Value Reference Range Interpretation Comme nts CHOLESTEROL (test code = 2210) 264 MG/DL TRIGLYCERIDES (test code = 2232) 194 MG/DL HDL CHOLESTEROL (test code = 2220) 55 MG/DL CALC LDL CHOL (test code = 2237) 174 MG/DL RISK RATIO LDL/HDL (test cod e = 2238) 3.16 RATIO Moises CovingtonTSH, THIRD [id number] 00:00:00* Test Item Value Reference Range Interpretation Comme donal TSH, THIRD GENERATION (test code = 2821) 3.110 UIU/ML Moises CovingtonHEMOGLOBIN [id number] 00:00:00* Test Item Value Reference Range Interpretation Comme donal HEMOGLOBIN A1c (test code = 21400) 6.2 % Moises CovingtonURINALYSIS W/REFLEX [id number] 00:00:00* Test Item Value Reference Range Interpretation Comme nts COLOR (test code = 1501) YELLOW APPEARANCE (test code = 1502) TURBID SPECIFIC GRAVITY (test code = 1503) 1.009 LEUKOCYTE ESTERASE (test cod e = 1504) TRACE NITRITE (test code = 1505) NEGATIVE pH (test code = 1506) 5.5 PROTEIN (test code = 1507) NEGATIVE GLUCOSE (test code = 1508) NEGATIVE KETONES (test code = 1509) NEGATIVE UROBILINOGEN (test code = 1510) 0.2 MG/DL BILIRUBIN (test code = 1511) NEGATIVE OCCULT BLOOD (test code = 1512) TRACE WHITE BLOOD CELLS (test code = 1513) 0-5 /HPF RED BLOOD CELLS (test code = 1514) 0-2 /HPF EPITHELIAL CELLS (test code = 85107) 0-5 /HPF BACTERIA (test code = 1515) NONE SEEN CASTS, HYALINE (test code = 1517) NONE SEEN Moises CovingtonALBUMIN/CREATININE RATIO, RANDOM [id number] 00:00:00* Test Item Value Reference Range Interpretation Comme nts CREATININE, URINE, CONC. (te st code = 2072) 64.2 MG/DL ALBUMIN, URINE, RANDOM (test code = 99125) 2.4 MG/DL CALC ALBUMIN/CREAT, RND (markos t code = 51577) 37 MG/G Moises CovingtonCBC W/AUTO [id number] 00:00:00* Test Item Value Reference Range Interpretation Comme nts WBC (test code = 1001) 9.0 K/UL RBC (test code = 1002) 5.12 M/UL HEMOGLOBIN (test code = 1003) 13.4 G/DL HEMATOCRIT (test code = 1004) 41.0 % MCV (test code = 1005) 80.1 fL MCH (test code = 1006) 26.2 PG MCHC (test code = 1007) 32.7 G/DL RDW (test code = 1038) 14.8 % NEUTROPHILS (test code = 1008) 47.9 % LYMPHOCYTES (test code = 1010) 40.4 % MONOCYTES (test code = 1011) 6.2 % EOSINOPHILS (test code = 1012) 4.4 % BASOPHILS (test code = 1013) 0.7 % IMMATURE GRANULOCYTES (test code = 1036) 0.4 % NUCLEATED RBCS (test code = 1065) 0.0 /100WBC'S PLATELET COUNT (test code = 1015) 266 K/UL ABSOLUTE NEUTROPHILS (test c ode = 1066) 4.30 K/UL ABSOLUTE LYMPHOCYTES (test c ode = 1067) 3.63 K/UL ABSOLUTE MONOCYTES (test cod e = 1068) 0.56 K/UL ABSOLUTE EOSINOPHILS (test c ode = 1040) 0.40 K/UL ABSOLUTE BASOPHILS (test cod e = 1069) 0.06 K/UL ABS IMMATURE GRANULOCYTES (t est code = 1020) 0.04 K/UL ABS NUCLEATED RBCS (test cod e = 37784) 0.00 K/UL Moises CovingtonCOMPREHENSIVE METABOLIC [id number] 00:00:00* Test Item Value Reference Range Interpretation Comme nts GLUCOSE (test code = 2217) 93 MG/DL BUN (test code = 2208) 14 MG/DL CREATININE (test code = 2214) 1.30 MG/DL eGFR (2020 CKD-EPI) (test co de = 55786) 46 ML/MIN/1.73 CALC BUN/CREAT (test code = 2235) 11 RATIO SODIUM (test code = 2231) 140 MEQ/L POTASSIUM (test code = 2228) 4.8 MEQ/L CHLORIDE (test code = 2215) 103 MEQ/L CARBON DIOXIDE (test code = 2206) 26 MEQ/L CALCIUM (test code = 2209) 10.6 MG/DL PROTEIN, TOTAL (test code = 2229) 7.9 G/DL ALBUMIN (test code = 2201) 4.8 G/DL CALC GLOBULIN (test code = 2240) 3.1 G/DL CALC A/G RATIO (test code = 2234) 1.5 RATIO BILIRUBIN, TOTAL (test code = 2207) <0.2 MG/DL ALKALINE PHOSPHATASE (test code = 2204) 99 U/L AST (test code = 2218) 33 U/L ALT (test code = 2219) 40 U/L Moises CovingtonLIPID [id number] 00:00:00* Test Item Value Reference Range Interpretation Comme nts CHOLESTEROL (test code = 2210) 264 MG/DL TRIGLYCERIDES (test code = 2232) 194 MG/DL HDL CHOLESTEROL (test code = 2220) 55 MG/DL CALC LDL CHOL (test code = 2237) 174 MG/DL RISK RATIO LDL/HDL (test cod e = 2238) 3.16 RATIO Moises CovingtonTSH, THIRD [id number] 00:00:00* Test Item Value Reference Range Interpretation Comme nts TSH, THIRD GENERATION (test code = 2821) 3.110 UIU/ML Moises CovingtonHEMOGLOBIN [id number] 00:00:00* Test Item Value Reference Range Interpretation Comme nts HEMOGLOBIN A1c (test code = 19974) 6.2 % Moises CovingtonURINALYSIS W/REFLEX [id number] 00:00:00* Test Item Value Reference Range Interpretation Comme nts COLOR (test code = 1501) YELLOW APPEARANCE (test code = 1502) TURBID SPECIFIC GRAVITY (test code = 1503) 1.009 LEUKOCYTE ESTERASE (test cod e = 1504) TRACE NITRITE (test code = 1505) NEGATIVE pH (test code = 1506) 5.5 PROTEIN (test code = 1507) NEGATIVE GLUCOSE (test code = 1508) NEGATIVE KETONES (test code = 1509) NEGATIVE UROBILINOGEN (test code = 1510) 0.2 MG/DL BILIRUBIN (test code = 1511) NEGATIVE OCCULT BLOOD (test code = 1512) TRACE WHITE BLOOD CELLS (test code = 1513) 0-5 /HPF RED BLOOD CELLS (test code = 1514) 0-2 /HPF EPITHELIAL CELLS (test code = 19237) 0-5 /HPF BACTERIA (test code = 1515) NONE SEEN CASTS, HYALINE (test code = 1517) NONE SEEN Moises Emerson AdriaALBUMIN/CREATININE RATIO, RANDOM [id number] 00:00:00* Test Item Value Reference Range Interpretation Comme nts CREATININE, URINE, CONC. (te st code = 2072) 64.2 MG/DL ALBUMIN, URINE, RANDOM (test code = 38705) 2.4 MG/DL CALC ALBUMIN/CREAT, RND (markos t code = 79513) 37 MG/G Moises Emerson AdriaCBC W/AUTO [id number] 00:00:00* Test Item Value Reference Range Interpretation Comme nts WBC (test code = 1001) 9.0 K/UL RBC (test code = 1002) 5.12 M/UL HEMOGLOBIN (test code = 1003) 13.4 G/DL HEMATOCRIT (test code = 1004) 41.0 % MCV (test code = 1005) 80.1 fL MCH (test code = 1006) 26.2 PG MCHC (test code = 1007) 32.7 G/DL RDW (test code = 1038) 14.8 % NEUTROPHILS (test code = 1008) 47.9 % LYMPHOCYTES (test code = 1010) 40.4 % MONOCYTES (test code = 1011) 6.2 % EOSINOPHILS (test code = 1012) 4.4 % BASOPHILS (test code = 1013) 0.7 % IMMATURE GRANULOCYTES (test code = 1036) 0.4 % NUCLEATED RBCS (test code = 1065) 0.0 /100WBC'S PLATELET COUNT (test code = 1015) 266 K/UL ABSOLUTE NEUTROPHILS (test c ode = 1066) 4.30 K/UL ABSOLUTE LYMPHOCYTES (test c ode = 1067) 3.63 K/UL ABSOLUTE MONOCYTES (test cod e = 1068) 0.56 K/UL ABSOLUTE EOSINOPHILS (test c ode = 1040) 0.40 K/UL ABSOLUTE BASOPHILS (test cod e = 1069) 0.06 K/UL ABS IMMATURE GRANULOCYTES (t est code = 1020) 0.04 K/UL ABS NUCLEATED RBCS (test cod e = 88574) 0.00 K/UL Moises CovingtonCOMPREHENSIVE METABOLIC [id number] 00:00:00* Test Item Value Reference Range Interpretation Comme nts GLUCOSE (test code = 2217) 93 MG/DL BUN (test code = 2208) 14 MG/DL CREATININE (test code = 2214) 1.30 MG/DL eGFR (2020 CKD-EPI) (test co de = 90910) 46 ML/MIN/1.73 CALC BUN/CREAT (test code = 2235) 11 RATIO SODIUM (test code = 2231) 140 MEQ/L POTASSIUM (test code = 2228) 4.8 MEQ/L CHLORIDE (test code = 2215) 103 MEQ/L CARBON DIOXIDE (test code = 2206) 26 MEQ/L CALCIUM (test code = 2209) 10.6 MG/DL PROTEIN, TOTAL (test code = 2229) 7.9 G/DL ALBUMIN (test code = 2201) 4.8 G/DL CALC GLOBULIN (test code = 2240) 3.1 G/DL CALC A/G RATIO (test code = 2234) 1.5 RATIO BILIRUBIN, TOTAL (test code = 2207) <0.2 MG/DL ALKALINE PHOSPHATASE (test code = 2204) 99 U/L AST (test code = 2218) 33 U/L ALT (test code = 2219) 40 U/L Moises CovingtonLIPID [id number] 00:00:00* Test Item Value Reference Range Interpretation Comme nts CHOLESTEROL (test code = 2210) 264 MG/DL TRIGLYCERIDES (test code = 2232) 194 MG/DL HDL CHOLESTEROL (test code = 2220) 55 MG/DL CALC LDL CHOL (test code = 2237) 174 MG/DL RISK RATIO LDL/HDL (test cod e = 2238) 3.16 RATIO Moises CovingtonTSH, THIRD [id number] 00:00:00* Test Item Value Reference Range Interpretation Comme donal TSH, THIRD GENERATION (test code = 2821) 3.110 UIU/ML Moises CovingtonHEMOGLOBIN [id number] 00:00:00* Test Item Value Reference Range Interpretation Comme donal HEMOGLOBIN A1c (test code = 62527) 6.2 % Moises CovingtonURINALYSIS W/REFLEX [id number] 00:00:00* Test Item Value Reference Range Interpretation Comme nts COLOR (test code = 1501) YELLOW APPEARANCE (test code = 1502) TURBID SPECIFIC GRAVITY (test code = 1503) 1.009 LEUKOCYTE ESTERASE (test cod e = 1504) TRACE NITRITE (test code = 1505) NEGATIVE pH (test code = 1506) 5.5 PROTEIN (test code = 1507) NEGATIVE GLUCOSE (test code = 1508) NEGATIVE KETONES (test code = 1509) NEGATIVE UROBILINOGEN (test code = 1510) 0.2 MG/DL BILIRUBIN (test code = 1511) NEGATIVE OCCULT BLOOD (test code = 1512) TRACE WHITE BLOOD CELLS (test code = 1513) 0-5 /HPF RED BLOOD CELLS (test code = 1514) 0-2 /HPF EPITHELIAL CELLS (test code = 38267) 0-5 /HPF BACTERIA (test code = 1515) NONE SEEN CASTS, HYALINE (test code = 1517) NONE SEEN Moises CovingtonALBUMIN/CREATININE RATIO, RANDOM [id number] 00:00:00* Test Item Value Reference Range Interpretation Comme donal CREATININE, URINE, CONC. (te st code = 2072) 64.2 MG/DL ALBUMIN, URINE, RANDOM (test code = 90139) 2.4 MG/DL CALC ALBUMIN/CREAT, RND (markos t code = 54273) 37 MG/G Moises CovnigtonCBC W/AUTO [id number] 00:00:00* Test Item Value Reference Range Interpretation Comme donal WBC (test code = 1001) 9.0 K/UL RBC (test code = 1002) 5.12 M/UL HEMOGLOBIN (test code = 1003) 13.4 G/DL HEMATOCRIT (test code = 1004) 41.0 % MCV (test code = 1005) 80.1 fL MCH (test code = 1006) 26.2 PG MCHC (test code = 1007) 32.7 G/DL RDW (test code = 1038) 14.8 % NEUTROPHILS (test code = 1008) 47.9 % LYMPHOCYTES (test code = 1010) 40.4 % MONOCYTES (test code = 1011) 6.2 % EOSINOPHILS (test code = 1012) 4.4 % BASOPHILS (test code = 1013) 0.7 % IMMATURE GRANULOCYTES (test code = 1036) 0.4 % NUCLEATED RBCS (test code = 1065) 0.0 /100WBC'S PLATELET COUNT (test code = 1015) 266 K/UL ABSOLUTE NEUTROPHILS (test c ode = 1066) 4.30 K/UL ABSOLUTE LYMPHOCYTES (test c ode = 1067) 3.63 K/UL ABSOLUTE MONOCYTES (test cod e = 1068) 0.56 K/UL ABSOLUTE EOSINOPHILS (test c ode = 1040) 0.40 K/UL ABSOLUTE BASOPHILS (test cod e = 1069) 0.06 K/UL ABS IMMATURE GRANULOCYTES (t est code = 1020) 0.04 K/UL ABS NUCLEATED RBCS (test cod e = 40844) 0.00 K/UL Moises CovingtonCOMPREHENSIVE METABOLIC [id number] 00:00:00* Test Item Value Reference Range Interpretation Comme nts GLUCOSE (test code = 2217) 93 MG/DL BUN (test code = 2208) 14 MG/DL CREATININE (test code = 2214) 1.30 MG/DL eGFR (2020 CKD-EPI) (test co de = 76846) 46 ML/MIN/1.73 CALC BUN/CREAT (test code = 2235) 11 RATIO SODIUM (test code = 2231) 140 MEQ/L POTASSIUM (test code = 2228) 4.8 MEQ/L CHLORIDE (test code = 2215) 103 MEQ/L CARBON DIOXIDE (test code = 2206) 26 MEQ/L CALCIUM (test code = 2209) 10.6 MG/DL PROTEIN, TOTAL (test code = 2229) 7.9 G/DL ALBUMIN (test code = 2201) 4.8 G/DL CALC GLOBULIN (test code = 2240) 3.1 G/DL CALC A/G RATIO (test code = 2234) 1.5 RATIO BILIRUBIN, TOTAL (test code = 2207) <0.2 MG/DL ALKALINE PHOSPHATASE (test code = 2204) 99 U/L AST (test code = 2218) 33 U/L ALT (test code = 2219) 40 U/L Moises CovingtonLIPID [id number] 00:00:00* Test Item Value Reference Range Interpretation Comme nts CHOLESTEROL (test code = 2210) 264 MG/DL TRIGLYCERIDES (test code = 2232) 194 MG/DL HDL CHOLESTEROL (test code = 2220) 55 MG/DL CALC LDL CHOL (test code = 2237) 174 MG/DL RISK RATIO LDL/HDL (test cod e = 2238) 3.16 RATIO Moises CovingtonTSH, THIRD [id number] 00:00:00* Test Item Value Reference Range Interpretation Comme donal TSH, THIRD GENERATION (test code = 2821) 3.110 UIU/ML Moises CovingtonHEMOGLOBIN [id number] 00:00:00* Test Item Value Reference Range Interpretation Comme donal HEMOGLOBIN A1c (test code = 08248) 6.2 % Moises CovingtonURINALYSIS W/REFLEX [id number] 00:00:00* Test Item Value Reference Range Interpretation Comme nts COLOR (test code = 1501) YELLOW APPEARANCE (test code = 1502) TURBID SPECIFIC GRAVITY (test code = 1503) 1.009 LEUKOCYTE ESTERASE (test cod e = 1504) TRACE NITRITE (test code = 1505) NEGATIVE pH (test code = 1506) 5.5 PROTEIN (test code = 1507) NEGATIVE GLUCOSE (test code = 1508) NEGATIVE KETONES (test code = 1509) NEGATIVE UROBILINOGEN (test code = 1510) 0.2 MG/DL BILIRUBIN (test code = 1511) NEGATIVE OCCULT BLOOD (test code = 1512) TRACE WHITE BLOOD CELLS (test code = 1513) 0-5 /HPF RED BLOOD CELLS (test code = 1514) 0-2 /HPF EPITHELIAL CELLS (test code = 13830) 0-5 /HPF BACTERIA (test code = 1515) NONE SEEN CASTS, HYALINE (test code = 1517) NONE SEEN Moises CovingtonALBUMIN/CREATININE RATIO, RANDOM [id number] 00:00:00* Test Item Value Reference Range Interpretation Comme nts CREATININE, URINE, CONC. (te st code = 2072) 64.2 MG/DL ALBUMIN, URINE, RANDOM (test code = 63563) 2.4 MG/DL CALC ALBUMIN/CREAT, RND (markos t code = 82871) 37 MG/G Moises CovingtonCBC W/AUTO [id number] 00:00:00* Test Item Value Reference Range Interpretation Comme nts WBC (test code = 1001) 9.0 K/UL RBC (test code = 1002) 5.12 M/UL HEMOGLOBIN (test code = 1003) 13.4 G/DL HEMATOCRIT (test code = 1004) 41.0 % MCV (test code = 1005) 80.1 fL MCH (test code = 1006) 26.2 PG MCHC (test code = 1007) 32.7 G/DL RDW (test code = 1038) 14.8 % NEUTROPHILS (test code = 1008) 47.9 % LYMPHOCYTES (test code = 1010) 40.4 % MONOCYTES (test code = 1011) 6.2 % EOSINOPHILS (test code = 1012) 4.4 % BASOPHILS (test code = 1013) 0.7 % IMMATURE GRANULOCYTES (test code = 1036) 0.4 % NUCLEATED RBCS (test code = 1065) 0.0 /100WBC'S PLATELET COUNT (test code = 1015) 266 K/UL ABSOLUTE NEUTROPHILS (test c ode = 1066) 4.30 K/UL ABSOLUTE LYMPHOCYTES (test c ode = 1067) 3.63 K/UL ABSOLUTE MONOCYTES (test cod e = 1068) 0.56 K/UL ABSOLUTE EOSINOPHILS (test c ode = 1040) 0.40 K/UL ABSOLUTE BASOPHILS (test cod e = 1069) 0.06 K/UL ABS IMMATURE GRANULOCYTES (t est code = 1020) 0.04 K/UL ABS NUCLEATED RBCS (test cod e = 01242) 0.00 K/UL Moises CovingtonCOMPREHENSIVE METABOLIC [id number] 00:00:00* Test Item Value Reference Range Interpretation Comme nts GLUCOSE (test code = 2217) 93 MG/DL BUN (test code = 2208) 14 MG/DL CREATININE (test code = 2214) 1.30 MG/DL eGFR (2020 CKD-EPI) (test co de = 52356) 46 ML/MIN/1.73 CALC BUN/CREAT (test code = 2235) 11 RATIO SODIUM (test code = 2231) 140 MEQ/L POTASSIUM (test code = 2228) 4.8 MEQ/L CHLORIDE (test code = 2215) 103 MEQ/L CARBON DIOXIDE (test code = 2206) 26 MEQ/L CALCIUM (test code = 2209) 10.6 MG/DL PROTEIN, TOTAL (test code = 2229) 7.9 G/DL ALBUMIN (test code = 2201) 4.8 G/DL CALC GLOBULIN (test code = 2240) 3.1 G/DL CALC A/G RATIO (test code = 2234) 1.5 RATIO BILIRUBIN, TOTAL (test code = 2207) <0.2 MG/DL ALKALINE PHOSPHATASE (test code = 2204) 99 U/L AST (test code = 2218) 33 U/L ALT (test code = 2219) 40 U/L Moises CovingtonCOMPREHENSIVE METABOLIC PANEL [ADDED]2022-02-28 00:00:00* Test Item Value Reference Range Interpretation Comme nts GLUCOSE (test code = 2217) 100 MG/DL BUN (test code = 2208) 17 MG/DL CREATININE (test code = 2214) 1.10 MG/DL eGFR (2020 CKD-EPI) (test co de = 48299) 57 ML/MIN/1.73 CALC BUN/CREAT (test code = 2235) 15 RATIO SODIUM (test code = 2231) 140 MEQ/L POTASSIUM (test code = 2228) 4.5 MEQ/L CHLORIDE (test code = 2215) 102 MEQ/L CARBON DIOXIDE (test code = 2206) 22 MEQ/L CALCIUM (test code = 2209) 10.0 MG/DL PROTEIN, TOTAL (test code = 2229) 8.1 G/DL ALBUMIN (test code = 2201) 4.7 G/DL CALC GLOBULIN (test code = 2240) 3.4 G/DL CALC A/G RATIO (test code = 2234) 1.4 RATIO BILIRUBIN, TOTAL (test code = 2207) 0.3 MG/DL ALKALINE PHOSPHATASE (test code = 2204) 175 U/L AST (test code = 2218) 25 U/L ALT (test code = 2219) 52 U/L Moises CovingtonLIPID PANEL [ADDED]2022-02-28 00:00:00* Test Item Value Reference Range Interpretation Comme nts CHOLESTEROL (test code = 2210) 241 MG/DL TRIGLYCERIDES (test code = 2232) 134 MG/DL HDL CHOLESTEROL (test code = 2220) 55 MG/DL CALC LDL CHOL (test code = 2237) 160 MG/DL RISK RATIO LDL/HDL (test cod e = 2238) 2.91 RATIO Moises CovingtonHEMOGLOBIN A1c [ADDED]2022-02-28 00:00:00* Test Item Value Reference Range Interpretation Comme nts HEMOGLOBIN A1c (test code = 67418) 5.8 % Moises CovingtonCBC W/AUTO DIFF WITH PLATELETS [ADDED]2022-02-28 00:00:00* Test Item Value Reference Range Interpretation Comme nts WBC (test code = 1001) 8.6 K/UL RBC (test code = 1002) 4.69 M/UL HEMOGLOBIN (test code = 1003) 12.7 G/DL HEMATOCRIT (test code = 1004) 38.1 % MCV (test code = 1005) 81.2 fL MCH (test code = 1006) 27.1 PG MCHC (test code = 1007) 33.3 G/DL RDW (test code = 1038) 15.7 % NEUTROPHILS (test code = 1008) 47.1 % LYMPHOCYTES (test code = 1010) 39.4 % MONOCYTES (test code = 1011) 7.3 % EOSINOPHILS (test code = 1012) 4.9 % BASOPHILS (test code = 1013) 0.7 % IMMATURE GRANULOCYTES (test code = 1036) 0.6 % NUCLEATED RBCS (test code = 1065) 0.0 /100WBC'S PLATELET COUNT (test code = 1015) 335 K/UL ABSOLUTE NEUTROPHILS (test c ode = 1066) 4.03 K/UL ABSOLUTE LYMPHOCYTES (test c ode = 1067) 3.37 K/UL ABSOLUTE MONOCYTES (test cod e = 1068) 0.62 K/UL ABSOLUTE EOSINOPHILS (test c ode = 1040) 0.42 K/UL ABSOLUTE BASOPHILS (test cod e = 1069) 0.06 K/UL ABS IMMATURE GRANULOCYTES (t est code = 1020) 0.05 K/UL ABS NUCLEATED RBCS (test cod e = 35634) 0.00 K/UL Moises Emerson AdriaCOMPREHENSIVE METABOLIC PANEL [ADDED]2022-02-28 00:00:00* Test Item Value Reference Range Interpretation Comme nts GLUCOSE (test code = 2217) 100 MG/DL BUN (test code = 2208) 17 MG/DL CREATININE (test code = 2214) 1.10 MG/DL eGFR (2020 CKD-EPI) (test co de = 09703) 57 ML/MIN/1.73 CALC BUN/CREAT (test code = 2235) 15 RATIO SODIUM (test code = 2231) 140 MEQ/L POTASSIUM (test code = 2228) 4.5 MEQ/L CHLORIDE (test code = 2215) 102 MEQ/L CARBON DIOXIDE (test code = 2206) 22 MEQ/L CALCIUM (test code = 2209) 10.0 MG/DL PROTEIN, TOTAL (test code = 2229) 8.1 G/DL ALBUMIN (test code = 2201) 4.7 G/DL CALC GLOBULIN (test code = 2240) 3.4 G/DL CALC A/G RATIO (test code = 2234) 1.4 RATIO BILIRUBIN, TOTAL (test code = 2207) 0.3 MG/DL ALKALINE PHOSPHATASE (test code = 2204) 175 U/L AST (test code = 2218) 25 U/L ALT (test code = 2219) 52 U/L Moises Emerson AdriaLIPID PANEL [ADDED]2022-02-28 00:00:00* Test Item Value Reference Range Interpretation Comme nts CHOLESTEROL (test code = 2210) 241 MG/DL TRIGLYCERIDES (test code = 2232) 134 MG/DL HDL CHOLESTEROL (test code = 2220) 55 MG/DL CALC LDL CHOL (test code = 2237) 160 MG/DL RISK RATIO LDL/HDL (test cod e = 2238) 2.91 RATIO Moises Idania AdriaHEMOGLOBIN A1c [ADDED]2022-02-28 00:00:00* Test Item Value Reference Range Interpretation Comme nts HEMOGLOBIN A1c (test code = 38815) 5.8 % Moises Idania AdriaCBC W/AUTO DIFF WITH PLATELETS [ADDED]2022-02-28 00:00:00* Test Item Value Reference Range Interpretation Comme nts WBC (test code = 1001) 8.6 K/UL RBC (test code = 1002) 4.69 M/UL HEMOGLOBIN (test code = 1003) 12.7 G/DL HEMATOCRIT (test code = 1004) 38.1 % MCV (test code = 1005) 81.2 fL MCH (test code = 1006) 27.1 PG MCHC (test code = 1007) 33.3 G/DL RDW (test code = 1038) 15.7 % NEUTROPHILS (test code = 1008) 47.1 % LYMPHOCYTES (test code = 1010) 39.4 % MONOCYTES (test code = 1011) 7.3 % EOSINOPHILS (test code = 1012) 4.9 % BASOPHILS (test code = 1013) 0.7 % IMMATURE GRANULOCYTES (test code = 1036) 0.6 % NUCLEATED RBCS (test code = 1065) 0.0 /100WBC'S PLATELET COUNT (test code = 1015) 335 K/UL ABSOLUTE NEUTROPHILS (test c ode = 1066) 4.03 K/UL ABSOLUTE LYMPHOCYTES (test c ode = 1067) 3.37 K/UL ABSOLUTE MONOCYTES (test cod e = 1068) 0.62 K/UL ABSOLUTE EOSINOPHILS (test c ode = 1040) 0.42 K/UL ABSOLUTE BASOPHILS (test cod e = 1069) 0.06 K/UL ABS IMMATURE GRANULOCYTES (t est code = 1020) 0.05 K/UL ABS NUCLEATED RBCS (test cod e = 07378) 0.00 K/UL Moises CovingtonCOMPREHENSIVE METABOLIC PANEL [ADDED]2022-02-28 00:00:00* Test Item Value Reference Range Interpretation Comme nts GLUCOSE (test code = 2217) 100 MG/DL BUN (test code = 2208) 17 MG/DL CREATININE (test code = 2214) 1.10 MG/DL eGFR (2020 CKD-EPI) (test co de = 67509) 57 ML/MIN/1.73 CALC BUN/CREAT (test code = 2235) 15 RATIO SODIUM (test code = 2231) 140 MEQ/L POTASSIUM (test code = 2228) 4.5 MEQ/L CHLORIDE (test code = 2215) 102 MEQ/L CARBON DIOXIDE (test code = 2206) 22 MEQ/L CALCIUM (test code = 2209) 10.0 MG/DL PROTEIN, TOTAL (test code = 2229) 8.1 G/DL ALBUMIN (test code = 2201) 4.7 G/DL CALC GLOBULIN (test code = 2240) 3.4 G/DL CALC A/G RATIO (test code = 2234) 1.4 RATIO BILIRUBIN, TOTAL (test code = 2207) 0.3 MG/DL ALKALINE PHOSPHATASE (test code = 2204) 175 U/L AST (test code = 2218) 25 U/L ALT (test code = 2219) 52 U/L Moises Emerson AdriaLIPID PANEL [ADDED]2022-02-28 00:00:00* Test Item Value Reference Range Interpretation Comme nts CHOLESTEROL (test code = 2210) 241 MG/DL TRIGLYCERIDES (test code = 2232) 134 MG/DL HDL CHOLESTEROL (test code = 2220) 55 MG/DL CALC LDL CHOL (test code = 2237) 160 MG/DL RISK RATIO LDL/HDL (test cod e = 2238) 2.91 RATIO Moises Emerson AdriaHEMOGLOBIN A1c [ADDED]2022-02-28 00:00:00* Test Item Value Reference Range Interpretation Comme nts HEMOGLOBIN A1c (test code = 69126) 5.8 % Moises Emerson AdriaCBC W/AUTO DIFF WITH PLATELETS [ADDED]2022-02-28 00:00:00* Test Item Value Reference Range Interpretation Comme nts WBC (test code = 1001) 8.6 K/UL RBC (test code = 1002) 4.69 M/UL HEMOGLOBIN (test code = 1003) 12.7 G/DL HEMATOCRIT (test code = 1004) 38.1 % MCV (test code = 1005) 81.2 fL MCH (test code = 1006) 27.1 PG MCHC (test code = 1007) 33.3 G/DL RDW (test code = 1038) 15.7 % NEUTROPHILS (test code = 1008) 47.1 % LYMPHOCYTES (test code = 1010) 39.4 % MONOCYTES (test code = 1011) 7.3 % EOSINOPHILS (test code = 1012) 4.9 % BASOPHILS (test code = 1013) 0.7 % IMMATURE GRANULOCYTES (test code = 1036) 0.6 % NUCLEATED RBCS (test code = 1065) 0.0 /100WBC'S PLATELET COUNT (test code = 1015) 335 K/UL ABSOLUTE NEUTROPHILS (test c ode = 1066) 4.03 K/UL ABSOLUTE LYMPHOCYTES (test c ode = 1067) 3.37 K/UL ABSOLUTE MONOCYTES (test cod e = 1068) 0.62 K/UL ABSOLUTE EOSINOPHILS (test c ode = 1040) 0.42 K/UL ABSOLUTE BASOPHILS (test cod e = 1069) 0.06 K/UL ABS IMMATURE GRANULOCYTES (t est code = 1020) 0.05 K/UL ABS NUCLEATED RBCS (test cod e = 89367) 0.00 K/UL Moises Emerson AdriaCOMPREHENSIVE METABOLIC PANEL [ADDED]2022-02-28 00:00:00* Test Item Value Reference Range Interpretation Comme nts GLUCOSE (test code = 2217) 100 MG/DL BUN (test code = 2208) 17 MG/DL CREATININE (test code = 2214) 1.10 MG/DL eGFR (2020 CKD-EPI) (test co de = 63193) 57 ML/MIN/1.73 CALC BUN/CREAT (test code = 2235) 15 RATIO SODIUM (test code = 2231) 140 MEQ/L POTASSIUM (test code = 2228) 4.5 MEQ/L CHLORIDE (test code = 2215) 102 MEQ/L CARBON DIOXIDE (test code = 2206) 22 MEQ/L CALCIUM (test code = 2209) 10.0 MG/DL PROTEIN, TOTAL (test code = 2229) 8.1 G/DL ALBUMIN (test code = 2201) 4.7 G/DL CALC GLOBULIN (test code = 2240) 3.4 G/DL CALC A/G RATIO (test code = 2234) 1.4 RATIO BILIRUBIN, TOTAL (test code = 2207) 0.3 MG/DL ALKALINE PHOSPHATASE (test code = 2204) 175 U/L AST (test code = 2218) 25 U/L ALT (test code = 2219) 52 U/L Moises Emerson AdriaLIPID PANEL [ADDED]2022-02-28 00:00:00* Test Item Value Reference Range Interpretation Comme nts CHOLESTEROL (test code = 2210) 241 MG/DL TRIGLYCERIDES (test code = 2232) 134 MG/DL HDL CHOLESTEROL (test code = 2220) 55 MG/DL CALC LDL CHOL (test code = 2237) 160 MG/DL RISK RATIO LDL/HDL (test cod e = 2238) 2.91 RATIO Moises Idania AdriaHEMOGLOBIN A1c [ADDED]2022-02-28 00:00:00* Test Item Value Reference Range Interpretation Comme nts HEMOGLOBIN A1c (test code = 02138) 5.8 % Moises CovingtonCBC W/AUTO DIFF WITH PLATELETS [ADDED]2022-02-28 00:00:00* Test Item Value Reference Range Interpretation Comme nts WBC (test code = 1001) 8.6 K/UL RBC (test code = 1002) 4.69 M/UL HEMOGLOBIN (test code = 1003) 12.7 G/DL HEMATOCRIT (test code = 1004) 38.1 % MCV (test code = 1005) 81.2 fL MCH (test code = 1006) 27.1 PG MCHC (test code = 1007) 33.3 G/DL RDW (test code = 1038) 15.7 % NEUTROPHILS (test code = 1008) 47.1 % LYMPHOCYTES (test code = 1010) 39.4 % MONOCYTES (test code = 1011) 7.3 % EOSINOPHILS (test code = 1012) 4.9 % BASOPHILS (test code = 1013) 0.7 % IMMATURE GRANULOCYTES (test code = 1036) 0.6 % NUCLEATED RBCS (test code = 1065) 0.0 /100WBC'S PLATELET COUNT (test code = 1015) 335 K/UL ABSOLUTE NEUTROPHILS (test c ode = 1066) 4.03 K/UL ABSOLUTE LYMPHOCYTES (test c ode = 1067) 3.37 K/UL ABSOLUTE MONOCYTES (test cod e = 1068) 0.62 K/UL ABSOLUTE EOSINOPHILS (test c ode = 1040) 0.42 K/UL ABSOLUTE BASOPHILS (test cod e = 1069) 0.06 K/UL ABS IMMATURE GRANULOCYTES (t est code = 1020) 0.05 K/UL ABS NUCLEATED RBCS (test cod e = 40088) 0.00 K/UL Moises CovingtonCOMPREHENSIVE METABOLIC PANEL [ADDED]2022-02-28 00:00:00* Test Item Value Reference Range Interpretation Comme nts GLUCOSE (test code = 2217) 100 MG/DL BUN (test code = 2208) 17 MG/DL CREATININE (test code = 2214) 1.10 MG/DL eGFR (2020 CKD-EPI) (test co de = 65548) 57 ML/MIN/1.73 CALC BUN/CREAT (test code = 2235) 15 RATIO SODIUM (test code = 2231) 140 MEQ/L POTASSIUM (test code = 2228) 4.5 MEQ/L CHLORIDE (test code = 2215) 102 MEQ/L CARBON DIOXIDE (test code = 2206) 22 MEQ/L CALCIUM (test code = 2209) 10.0 MG/DL PROTEIN, TOTAL (test code = 2229) 8.1 G/DL ALBUMIN (test code = 2201) 4.7 G/DL CALC GLOBULIN (test code = 2240) 3.4 G/DL CALC A/G RATIO (test code = 2234) 1.4 RATIO BILIRUBIN, TOTAL (test code = 2207) 0.3 MG/DL ALKALINE PHOSPHATASE (test code = 2204) 175 U/L AST (test code = 2218) 25 U/L ALT (test code = 2219) 52 U/L Moises CovingtonLIPID PANEL [ADDED]2022-02-28 00:00:00* Test Item Value Reference Range Interpretation Comme nts CHOLESTEROL (test code = 2210) 241 MG/DL TRIGLYCERIDES (test code = 2232) 134 MG/DL HDL CHOLESTEROL (test code = 2220) 55 MG/DL CALC LDL CHOL (test code = 2237) 160 MG/DL RISK RATIO LDL/HDL (test cod e = 2238) 2.91 RATIO Moises CovingtonHEMOGLOBIN A1c [ADDED]2022-02-28 00:00:00* Test Item Value Reference Range Interpretation Comme nts HEMOGLOBIN A1c (test code = 05873) 5.8 % Moises CovingtonCBC W/AUTO DIFF WITH PLATELETS [ADDED]2022-02-28 00:00:00* Test Item Value Reference Range Interpretation Comme nts WBC (test code = 1001) 8.6 K/UL RBC (test code = 1002) 4.69 M/UL HEMOGLOBIN (test code = 1003) 12.7 G/DL HEMATOCRIT (test code = 1004) 38.1 % MCV (test code = 1005) 81.2 fL MCH (test code = 1006) 27.1 PG MCHC (test code = 1007) 33.3 G/DL RDW (test code = 1038) 15.7 % NEUTROPHILS (test code = 1008) 47.1 % LYMPHOCYTES (test code = 1010) 39.4 % MONOCYTES (test code = 1011) 7.3 % EOSINOPHILS (test code = 1012) 4.9 % BASOPHILS (test code = 1013) 0.7 % IMMATURE GRANULOCYTES (test code = 1036) 0.6 % NUCLEATED RBCS (test code = 1065) 0.0 /100WBC'S PLATELET COUNT (test code = 1015) 335 K/UL ABSOLUTE NEUTROPHILS (test c ode = 1066) 4.03 K/UL ABSOLUTE LYMPHOCYTES (test c ode = 1067) 3.37 K/UL ABSOLUTE MONOCYTES (test cod e = 1068) 0.62 K/UL ABSOLUTE EOSINOPHILS (test c ode = 1040) 0.42 K/UL ABSOLUTE BASOPHILS (test cod e = 1069) 0.06 K/UL ABS IMMATURE GRANULOCYTES (t est code = 1020) 0.05 K/UL ABS NUCLEATED RBCS (test cod e = 12422) 0.00 K/UL Moises CovingtonCOMPREHENSIVE METABOLIC PANEL [ADDED]2022-02-28 00:00:00* Test Item Value Reference Range Interpretation Comme nts GLUCOSE (test code = 2217) 100 MG/DL BUN (test code = 2208) 17 MG/DL CREATININE (test code = 2214) 1.10 MG/DL eGFR (2020 CKD-EPI) (test co de = 73396) 57 ML/MIN/1.73 CALC BUN/CREAT (test code = 2235) 15 RATIO SODIUM (test code = 2231) 140 MEQ/L POTASSIUM (test code = 2228) 4.5 MEQ/L CHLORIDE (test code = 2215) 102 MEQ/L CARBON DIOXIDE (test code = 2206) 22 MEQ/L CALCIUM (test code = 2209) 10.0 MG/DL PROTEIN, TOTAL (test code = 2229) 8.1 G/DL ALBUMIN (test code = 2201) 4.7 G/DL CALC GLOBULIN (test code = 2240) 3.4 G/DL CALC A/G RATIO (test code = 2234) 1.4 RATIO BILIRUBIN, TOTAL (test code = 2207) 0.3 MG/DL ALKALINE PHOSPHATASE (test code = 2204) 175 U/L AST (test code = 2218) 25 U/L ALT (test code = 2219) 52 U/L Moises CovingtonLIPID PANEL [ADDED]2022-02-28 00:00:00* Test Item Value Reference Range Interpretation Comme nts CHOLESTEROL (test code = 2210) 241 MG/DL TRIGLYCERIDES (test code = 2232) 134 MG/DL HDL CHOLESTEROL (test code = 2220) 55 MG/DL CALC LDL CHOL (test code = 2237) 160 MG/DL RISK RATIO LDL/HDL (test cod e = 2238) 2.91 RATIO Moises CovingtonHEMOGLOBIN A1c [ADDED]2022-02-28 00:00:00* Test Item Value Reference Range Interpretation Comme nts HEMOGLOBIN A1c (test code = 82890) 5.8 % Moises CovingtonCBC W/AUTO DIFF WITH PLATELETS [ADDED]2022-02-28 00:00:00* Test Item Value Reference Range Interpretation Comme nts WBC (test code = 1001) 8.6 K/UL RBC (test code = 1002) 4.69 M/UL HEMOGLOBIN (test code = 1003) 12.7 G/DL HEMATOCRIT (test code = 1004) 38.1 % MCV (test code = 1005) 81.2 fL MCH (test code = 1006) 27.1 PG MCHC (test code = 1007) 33.3 G/DL RDW (test code = 1038) 15.7 % NEUTROPHILS (test code = 1008) 47.1 % LYMPHOCYTES (test code = 1010) 39.4 % MONOCYTES (test code = 1011) 7.3 % EOSINOPHILS (test code = 1012) 4.9 % BASOPHILS (test code = 1013) 0.7 % IMMATURE GRANULOCYTES (test code = 1036) 0.6 % NUCLEATED RBCS (test code = 1065) 0.0 /100WBC'S PLATELET COUNT (test code = 1015) 335 K/UL ABSOLUTE NEUTROPHILS (test c ode = 1066) 4.03 K/UL ABSOLUTE LYMPHOCYTES (test c ode = 1067) 3.37 K/UL ABSOLUTE MONOCYTES (test cod e = 1068) 0.62 K/UL ABSOLUTE EOSINOPHILS (test c ode = 1040) 0.42 K/UL ABSOLUTE BASOPHILS (test cod e = 1069) 0.06 K/UL ABS IMMATURE GRANULOCYTES (t est code = 1020) 0.05 K/UL ABS NUCLEATED RBCS (test cod e = 28267) 0.00 K/UL Moises Emerson AdriaCOMPREHENSIVE METABOLIC PANEL [ADDED]2022-02-28 00:00:00* Test Item Value Reference Range Interpretation Comme nts GLUCOSE (test code = 2217) 100 MG/DL BUN (test code = 2208) 17 MG/DL CREATININE (test code = 2214) 1.10 MG/DL eGFR (2020 CKD-EPI) (test co de = 73944) 57 ML/MIN/1.73 CALC BUN/CREAT (test code = 2235) 15 RATIO SODIUM (test code = 223) 140 MEQ/L POTASSIUM (test code = 2228) 4.5 MEQ/L CHLORIDE (test code = 2215) 102 MEQ/L CARBON DIOXIDE (test code = 2206) 22 MEQ/L CALCIUM (test code = 2209) 10.0 MG/DL PROTEIN, TOTAL (test code = 2229) 8.1 G/DL ALBUMIN (test code = 2201) 4.7 G/DL CALC GLOBULIN (test code = 2240) 3.4 G/DL CALC A/G RATIO (test code = 2234) 1.4 RATIO BILIRUBIN, TOTAL (test code = 2207) 0.3 MG/DL ALKALINE PHOSPHATASE (test code = 2204) 175 U/L AST (test code = 2218) 25 U/L ALT (test code = 2219) 52 U/L Moises CovingtonLIPID PANEL [ADDED]2022-02-28 00:00:00* Test Item Value Reference Range Interpretation Comme nts CHOLESTEROL (test code = 2210) 241 MG/DL TRIGLYCERIDES (test code = 2232) 134 MG/DL HDL CHOLESTEROL (test code = 2220) 55 MG/DL CALC LDL CHOL (test code = 2237) 160 MG/DL RISK RATIO LDL/HDL (test cod e = 2238) 2.91 RATIO Moises CovingtonHEMOGLOBIN A1c [ADDED]2022-02-28 00:00:00* Test Item Value Reference Range Interpretation Comme nts HEMOGLOBIN A1c (test code = 22043) 5.8 % Moises CovingtonCBC W/AUTO DIFF WITH PLATELETS [ADDED]2022-02-28 00:00:00* Test Item Value Reference Range Interpretation Comme nts WBC (test code = 1001) 8.6 K/UL RBC (test code = 1002) 4.69 M/UL HEMOGLOBIN (test code = 1003) 12.7 G/DL HEMATOCRIT (test code = 1004) 38.1 % MCV (test code = 1005) 81.2 fL MCH (test code = 1006) 27.1 PG MCHC (test code = 1007) 33.3 G/DL RDW (test code = 1038) 15.7 % NEUTROPHILS (test code = 1008) 47.1 % LYMPHOCYTES (test code = 1010) 39.4 % MONOCYTES (test code = 1011) 7.3 % EOSINOPHILS (test code = 1012) 4.9 % BASOPHILS (test code = 1013) 0.7 % IMMATURE GRANULOCYTES (test code = 1036) 0.6 % NUCLEATED RBCS (test code = 1065) 0.0 /100WBC'S PLATELET COUNT (test code = 1015) 335 K/UL ABSOLUTE NEUTROPHILS (test c ode = 1066) 4.03 K/UL ABSOLUTE LYMPHOCYTES (test c ode = 1067) 3.37 K/UL ABSOLUTE MONOCYTES (test cod e = 1068) 0.62 K/UL ABSOLUTE EOSINOPHILS (test c ode = 1040) 0.42 K/UL ABSOLUTE BASOPHILS (test cod e = 1069) 0.06 K/UL ABS IMMATURE GRANULOCYTES (t est code = 1020) 0.05 K/UL ABS NUCLEATED RBCS (test cod e = 38229) 0.00 K/UL Moises CovingtonCOMPREHENSIVE METABOLIC PANEL [ADDED]2022-02-28 00:00:00* Test Item Value Reference Range Interpretation Comme nts GLUCOSE (test code = 2217) 100 MG/DL BUN (test code = 2208) 17 MG/DL CREATININE (test code = 2214) 1.10 MG/DL eGFR (2020 CKD-EPI) (test co de = 25789) 57 ML/MIN/1.73 CALC BUN/CREAT (test code = 2235) 15 RATIO SODIUM (test code = 2231) 140 MEQ/L POTASSIUM (test code = 2228) 4.5 MEQ/L CHLORIDE (test code = 2215) 102 MEQ/L CARBON DIOXIDE (test code = 2206) 22 MEQ/L CALCIUM (test code = 2209) 10.0 MG/DL PROTEIN, TOTAL (test code = 2229) 8.1 G/DL ALBUMIN (test code = 2201) 4.7 G/DL CALC GLOBULIN (test code = 2240) 3.4 G/DL CALC A/G RATIO (test code = 2234) 1.4 RATIO BILIRUBIN, TOTAL (test code = 2207) 0.3 MG/DL ALKALINE PHOSPHATASE (test code = 2204) 175 U/L AST (test code = 2218) 25 U/L ALT (test code = 2219) 52 U/L Moises CovingtonLIPID PANEL [ADDED]2022-02-28 00:00:00* Test Item Value Reference Range Interpretation Comme nts CHOLESTEROL (test code = 2210) 241 MG/DL TRIGLYCERIDES (test code = 2232) 134 MG/DL HDL CHOLESTEROL (test code = 2220) 55 MG/DL CALC LDL CHOL (test code = 2237) 160 MG/DL RISK RATIO LDL/HDL (test cod e = 2238) 2.91 RATIO Moises CovingtonHEMOGLOBIN A1c [ADDED]2022-02-28 00:00:00* Test Item Value Reference Range Interpretation Comme nts HEMOGLOBIN A1c (test code = 72185) 5.8 % Moises CovingtonCBC W/AUTO DIFF WITH PLATELETS [ADDED]2022-02-28 00:00:00* Test Item Value Reference Range Interpretation Comme nts WBC (test code = 1001) 8.6 K/UL RBC (test code = 1002) 4.69 M/UL HEMOGLOBIN (test code = 1003) 12.7 G/DL HEMATOCRIT (test code = 1004) 38.1 % MCV (test code = 1005) 81.2 fL MCH (test code = 1006) 27.1 PG MCHC (test code = 1007) 33.3 G/DL RDW (test code = 1038) 15.7 % NEUTROPHILS (test code = 1008) 47.1 % LYMPHOCYTES (test code = 1010) 39.4 % MONOCYTES (test code = 1011) 7.3 % EOSINOPHILS (test code = 1012) 4.9 % BASOPHILS (test code = 1013) 0.7 % IMMATURE GRANULOCYTES (test code = 1036) 0.6 % NUCLEATED RBCS (test code = 1065) 0.0 /100WBC'S PLATELET COUNT (test code = 1015) 335 K/UL ABSOLUTE NEUTROPHILS (test c ode = 1066) 4.03 K/UL ABSOLUTE LYMPHOCYTES (test c ode = 1067) 3.37 K/UL ABSOLUTE MONOCYTES (test cod e = 1068) 0.62 K/UL ABSOLUTE EOSINOPHILS (test c ode = 1040) 0.42 K/UL ABSOLUTE BASOPHILS (test cod e = 1069) 0.06 K/UL ABS IMMATURE GRANULOCYTES (t est code = 1020) 0.05 K/UL ABS NUCLEATED RBCS (test cod e = 66157) 0.00 K/UL Moises Emerson AdriaCOMPREHENSIVE METABOLIC PANEL [ADDED]2022-02-28 00:00:00* Test Item Value Reference Range Interpretation Comme nts GLUCOSE (test code = 2217) 100 MG/DL BUN (test code = 2208) 17 MG/DL CREATININE (test code = 2214) 1.10 MG/DL eGFR (2020 CKD-EPI) (test co de = 65489) 57 ML/MIN/1.73 CALC BUN/CREAT (test code = 2235) 15 RATIO SODIUM (test code = 2231) 140 MEQ/L POTASSIUM (test code = 2228) 4.5 MEQ/L CHLORIDE (test code = 2215) 102 MEQ/L CARBON DIOXIDE (test code = 2206) 22 MEQ/L CALCIUM (test code = 2209) 10.0 MG/DL PROTEIN, TOTAL (test code = 2229) 8.1 G/DL ALBUMIN (test code = 2201) 4.7 G/DL CALC GLOBULIN (test code = 2240) 3.4 G/DL CALC A/G RATIO (test code = 2234) 1.4 RATIO BILIRUBIN, TOTAL (test code = 2207) 0.3 MG/DL ALKALINE PHOSPHATASE (test code = 2204) 175 U/L AST (test code = 2218) 25 U/L ALT (test code = 2219) 52 U/L Moises Idania AdriaLIPID PANEL [ADDED]2022-02-28 00:00:00* Test Item Value Reference Range Interpretation Comme nts CHOLESTEROL (test code = 2210) 241 MG/DL TRIGLYCERIDES (test code = 2232) 134 MG/DL HDL CHOLESTEROL (test code = 2220) 55 MG/DL CALC LDL CHOL (test code = 2237) 160 MG/DL RISK RATIO LDL/HDL (test cod e = 2238) 2.91 RATIO Moises CovingtonHEMOGLOBIN A1c [ADDED]2022-02-28 00:00:00* Test Item Value Reference Range Interpretation Comme nts HEMOGLOBIN A1c (test code = 97971) 5.8 % Moises CovingtonCBC W/AUTO DIFF WITH PLATELETS [ADDED]2022-02-28 00:00:00* Test Item Value Reference Range Interpretation Comme nts WBC (test code = 1001) 8.6 K/UL RBC (test code = 1002) 4.69 M/UL HEMOGLOBIN (test code = 1003) 12.7 G/DL HEMATOCRIT (test code = 1004) 38.1 % MCV (test code = 1005) 81.2 fL MCH (test code = 1006) 27.1 PG MCHC (test code = 1007) 33.3 G/DL RDW (test code = 1038) 15.7 % NEUTROPHILS (test code = 1008) 47.1 % LYMPHOCYTES (test code = 1010) 39.4 % MONOCYTES (test code = 1011) 7.3 % EOSINOPHILS (test code = 1012) 4.9 % BASOPHILS (test code = 1013) 0.7 % IMMATURE GRANULOCYTES (test code = 1036) 0.6 % NUCLEATED RBCS (test code = 1065) 0.0 /100WBC'S PLATELET COUNT (test code = 1015) 335 K/UL ABSOLUTE NEUTROPHILS (test c ode = 1066) 4.03 K/UL ABSOLUTE LYMPHOCYTES (test c ode = 1067) 3.37 K/UL ABSOLUTE MONOCYTES (test cod e = 1068) 0.62 K/UL ABSOLUTE EOSINOPHILS (test c ode = 1040) 0.42 K/UL ABSOLUTE BASOPHILS (test cod e = 1069) 0.06 K/UL ABS IMMATURE GRANULOCYTES (t est code = 1020) 0.05 K/UL ABS NUCLEATED RBCS (test cod e = 63905) 0.00 K/UL Moises CovingtonCOMPREHENSIVE METABOLIC PANEL [ADDED]2022-02-28 00:00:00* Test Item Value Reference Range Interpretation Comme nts GLUCOSE (test code = 2217) 100 MG/DL BUN (test code = 2208) 17 MG/DL CREATININE (test code = 2214) 1.10 MG/DL eGFR (2020 CKD-EPI) (test co de = 87583) 57 ML/MIN/1.73 CALC BUN/CREAT (test code = 2235) 15 RATIO SODIUM (test code = 2231) 140 MEQ/L POTASSIUM (test code = 2228) 4.5 MEQ/L CHLORIDE (test code = 2215) 102 MEQ/L CARBON DIOXIDE (test code = 2206) 22 MEQ/L CALCIUM (test code = 2209) 10.0 MG/DL PROTEIN, TOTAL (test code = 2229) 8.1 G/DL ALBUMIN (test code = 2201) 4.7 G/DL CALC GLOBULIN (test code = 2240) 3.4 G/DL CALC A/G RATIO (test code = 2234) 1.4 RATIO BILIRUBIN, TOTAL (test code = 2207) 0.3 MG/DL ALKALINE PHOSPHATASE (test code = 2204) 175 U/L AST (test code = 2218) 25 U/L ALT (test code = 2219) 52 U/L Moises CovingtonLIPID PANEL [ADDED]2022-02-28 00:00:00* Test Item Value Reference Range Interpretation Comme nts CHOLESTEROL (test code = 2210) 241 MG/DL TRIGLYCERIDES (test code = 2232) 134 MG/DL HDL CHOLESTEROL (test code = 2220) 55 MG/DL CALC LDL CHOL (test code = 2237) 160 MG/DL RISK RATIO LDL/HDL (test cod e = 2238) 2.91 RATIO Moises CovingtonHEMOGLOBIN A1c [ADDED]2022-02-28 00:00:00* Test Item Value Reference Range Interpretation Comme nts HEMOGLOBIN A1c (test code = 37094) 5.8 % Moises CovingtonCBC W/AUTO DIFF WITH PLATELETS [ADDED]2022-02-28 00:00:00* Test Item Value Reference Range Interpretation Comme nts WBC (test code = 1001) 8.6 K/UL RBC (test code = 1002) 4.69 M/UL HEMOGLOBIN (test code = 1003) 12.7 G/DL HEMATOCRIT (test code = 1004) 38.1 % MCV (test code = 1005) 81.2 fL MCH (test code = 1006) 27.1 PG MCHC (test code = 1007) 33.3 G/DL RDW (test code = 1038) 15.7 % NEUTROPHILS (test code = 1008) 47.1 % LYMPHOCYTES (test code = 1010) 39.4 % MONOCYTES (test code = 1011) 7.3 % EOSINOPHILS (test code = 1012) 4.9 % BASOPHILS (test code = 1013) 0.7 % IMMATURE GRANULOCYTES (test code = 1036) 0.6 % NUCLEATED RBCS (test code = 1065) 0.0 /100WBC'S PLATELET COUNT (test code = 1015) 335 K/UL ABSOLUTE NEUTROPHILS (test c ode = 1066) 4.03 K/UL ABSOLUTE LYMPHOCYTES (test c ode = 1067) 3.37 K/UL ABSOLUTE MONOCYTES (test cod e = 1068) 0.62 K/UL ABSOLUTE EOSINOPHILS (test c ode = 1040) 0.42 K/UL ABSOLUTE BASOPHILS (test cod e = 1069) 0.06 K/UL ABS IMMATURE GRANULOCYTES (t est code = 1020) 0.05 K/UL ABS NUCLEATED RBCS (test cod e = 81170) 0.00 K/UL Moises CovingtonCOMPREHENSIVE METABOLIC PANEL [ADDED]2022-02-28 00:00:00* Test Item Value Reference Range Interpretation Comme nts GLUCOSE (test code = 2217) 100 MG/DL BUN (test code = 2208) 17 MG/DL CREATININE (test code = 2214) 1.10 MG/DL eGFR (2020 CKD-EPI) (test co de = 30730) 57 ML/MIN/1.73 CALC BUN/CREAT (test code = 2235) 15 RATIO SODIUM (test code = 2231) 140 MEQ/L POTASSIUM (test code = 2228) 4.5 MEQ/L CHLORIDE (test code = 2215) 102 MEQ/L CARBON DIOXIDE (test code = 2206) 22 MEQ/L CALCIUM (test code = 2209) 10.0 MG/DL PROTEIN, TOTAL (test code = 2229) 8.1 G/DL ALBUMIN (test code = 2201) 4.7 G/DL CALC GLOBULIN (test code = 2240) 3.4 G/DL CALC A/G RATIO (test code = 2234) 1.4 RATIO BILIRUBIN, TOTAL (test code = 2207) 0.3 MG/DL ALKALINE PHOSPHATASE (test code = 2204) 175 U/L AST (test code = 2218) 25 U/L ALT (test code = 2219) 52 U/L Moises Idania AdriaLIPID PANEL [ADDED]2022-02-28 00:00:00* Test Item Value Reference Range Interpretation Comme nts CHOLESTEROL (test code = 2210) 241 MG/DL TRIGLYCERIDES (test code = 2232) 134 MG/DL HDL CHOLESTEROL (test code = 2220) 55 MG/DL CALC LDL CHOL (test code = 2237) 160 MG/DL RISK RATIO LDL/HDL (test cod e = 2238) 2.91 RATIO Moises CovingtonHEMOGLOBIN A1c [ADDED]2022-02-28 00:00:00* Test Item Value Reference Range Interpretation Comme nts HEMOGLOBIN A1c (test code = 99644) 5.8 % Moises CovingtonCBC W/AUTO DIFF WITH PLATELETS [ADDED]2022-02-28 00:00:00* Test Item Value Reference Range Interpretation Comme nts WBC (test code = 1001) 8.6 K/UL RBC (test code = 1002) 4.69 M/UL HEMOGLOBIN (test code = 1003) 12.7 G/DL HEMATOCRIT (test code = 1004) 38.1 % MCV (test code = 1005) 81.2 fL MCH (test code = 1006) 27.1 PG MCHC (test code = 1007) 33.3 G/DL RDW (test code = 1038) 15.7 % NEUTROPHILS (test code = 1008) 47.1 % LYMPHOCYTES (test code = 1010) 39.4 % MONOCYTES (test code = 1011) 7.3 % EOSINOPHILS (test code = 1012) 4.9 % BASOPHILS (test code = 1013) 0.7 % IMMATURE GRANULOCYTES (test code = 1036) 0.6 % NUCLEATED RBCS (test code = 1065) 0.0 /100WBC'S PLATELET COUNT (test code = 1015) 335 K/UL ABSOLUTE NEUTROPHILS (test c ode = 1066) 4.03 K/UL ABSOLUTE LYMPHOCYTES (test c ode = 1067) 3.37 K/UL ABSOLUTE MONOCYTES (test cod e = 1068) 0.62 K/UL ABSOLUTE EOSINOPHILS (test c ode = 1040) 0.42 K/UL ABSOLUTE BASOPHILS (test cod e = 1069) 0.06 K/UL ABS IMMATURE GRANULOCYTES (t est code = 1020) 0.05 K/UL ABS NUCLEATED RBCS (test cod e = 33854) 0.00 K/UL Moises Hardy, [id number] 00:00:00* Test Item Value Reference Range Interpretation Comme donal CULTURE, URINE (test code = 71428) SPECIMEN NUMBER: [id number] Moises Hardy, [id number] 00:00:00* Test Item Value Reference Range Interpretation Comme nts CULTURE, URINE (test code = 19042) SPECIMEN NUMBER: [id number] Moises Hardy [id number] 00:00:00* Test Item Value Reference Range Interpretation Comme nts CULTURE, URINE (test code = 66758) SPECIMEN NUMBER: [id number] ED Newman2017-05-22 00:00:00* Test Item Value Reference Range Interpretation Comme nts CULTURE, URINE (test code = 50903) SPECIMEN NUMBER: [id number] Moises Hardy [id number] 00:00:00* Test Item Value Reference Range Interpretation Comme nts CULTURE, URINE (test code = 34292) SPECIMEN NUMBER: [id number] Moises Hardy [id number] 00:00:00* Test Item Value Reference Range Interpretation Comme nts CULTURE, URINE (test code = 50515) SPECIMEN NUMBER: [id number] Moises Hardy [id number] 00:00:00* Test Item Value Reference Range Interpretation Comme nts CULTURE, URINE (test code = 27438) SPECIMEN NUMBER: [id number] Moises Hardy [id number] 00:00:00* Test Item Value Reference Range Interpretation Comme nts CULTURE, URINE (test code = 94694) SPECIMEN NUMBER: [id number] Moises Hardy [id number] 00:00:00* Test Item Value Reference Range Interpretation Comme nts CULTURE, URINE (test code = 38540) SPECIMEN NUMBER: [id number] Moises SneedLTRADAMES [id number] 00:00:00* Test Item Value Reference Range Interpretation Comme nts CULTURE, URINE (test code = 53937) SPECIMEN NUMBER: [id number] Moises SneedLTRADAMES [id number] 00:00:00* Test Item Value Reference Range Interpretation Comme nts CULTURE, URINE (test code = 65388) SPECIMEN NUMBER: [id number] Moises CovingtonHEMOGLOBIN [id number] 00:00:00* Test Item Value Reference Range Interpretation Comme nts HEMOGLOBIN A1c (test code = 96955) 6.0 % Moises CovingtonCBC W/AUTO [id number] 00:00:00* Test Item Value Reference Range Interpretation Comme nts WBC (test code = 1001) 8.4 K/UL RBC (test code = 1002) 5.05 M/UL HEMOGLOBIN (test code = 1003) 13.7 G/DL HEMATOCRIT (test code = 1004) 42.3 % MCV (test code = 1005) 83.8 fL MCH (test code = 1006) 27.1 PG MCHC (test code = 1007) 32.4 G/DL RDW (test code = 1038) 14.6 % NEUTROPHILS (test code = 1008) 42.3 % LYMPHOCYTES (test code = 1010) 41.3 % MONOCYTES (test code = 1011) 6.2 % EOSINOPHILS (test code = 1012) 9.5 % BASOPHILS (test code = 1013) 0.7 % PLATELET COUNT (test code = 1015) 274 K/UL Moises CovingtonCOMPREHENSIVE METABOLIC [id number] 00:00:00* Test Item Value Reference Range Interpretation Comme nts GLUCOSE (test code = 2217) 84 MG/DL BUN (test code = 2208) 19 MG/DL CREATININE (test code = 2214) 1.12 MG/DL eGFR AMER. (test cod e = 25100) 63 ML/MIN/1.73 eGFR NON- AMER. (test code = 30804) 54 ML/MIN/1.73 CALC BUN/CREAT (test code = 2235) 17 RATIO SODIUM (test code = 2231) 142 MEQ/L POTASSIUM (test code = 2228) 5.7 MEQ/L CHLORIDE (test code = 2215) 105 MEQ/L CARBON DIOXIDE (test code = 2206) 26 MEQ/L CALCIUM (test code = 2209) 10.7 MG/DL PROTEIN, TOTAL (test code = 2229) 8.5 G/DL ALBUMIN (test code = 2201) 4.7 G/DL CALC GLOBULIN (test code = 2240) 3.8 G/DL CALC A/G RATIO (test code = 2234) 1.2 RATIO BILIRUBIN, TOTAL (test code = 2207) 0.2 MG/DL ALKALINE PHOSPHATASE (test code = 2204) 109 U/L AST (test code = 2218) 25 U/L ALT (test code = 2219) 23 U/L Moises CovingtonHEMOGLOBIN [id number] 00:00:00* Test Item Value Reference Range Interpretation Comme nts HEMOGLOBIN A1c (test code = 97124) 6.0 % Moises CovingtonCBC W/AUTO [id number] 00:00:00* Test Item Value Reference Range Interpretation Comme nts WBC (test code = 1001) 8.4 K/UL RBC (test code = 1002) 5.05 M/UL HEMOGLOBIN (test code = 1003) 13.7 G/DL HEMATOCRIT (test code = 1004) 42.3 % MCV (test code = 1005) 83.8 fL MCH (test code = 1006) 27.1 PG MCHC (test code = 1007) 32.4 G/DL RDW (test code = 1038) 14.6 % NEUTROPHILS (test code = 1008) 42.3 % LYMPHOCYTES (test code = 1010) 41.3 % MONOCYTES (test code = 1011) 6.2 % EOSINOPHILS (test code = 1012) 9.5 % BASOPHILS (test code = 1013) 0.7 % PLATELET COUNT (test code = 1015) 274 K/UL Moises CovingtonCOMPREHENSIVE METABOLIC [id number] 00:00:00* Test Item Value Reference Range Interpretation Comme nts GLUCOSE (test code = 2217) 84 MG/DL BUN (test code = 2208) 19 MG/DL CREATININE (test code = 2214) 1.12 MG/DL eGFR AMER. (test cod e = 79852) 63 ML/MIN/1.73 eGFR NON- AMER. (test code = 62520) 54 ML/MIN/1.73 CALC BUN/CREAT (test code = 2235) 17 RATIO SODIUM (test code = 2231) 142 MEQ/L POTASSIUM (test code = 2228) 5.7 MEQ/L CHLORIDE (test code = 2215) 105 MEQ/L CARBON DIOXIDE (test code = 2206) 26 MEQ/L CALCIUM (test code = 2209) 10.7 MG/DL PROTEIN, TOTAL (test code = 2229) 8.5 G/DL ALBUMIN (test code = 2201) 4.7 G/DL CALC GLOBULIN (test code = 2240) 3.8 G/DL CALC A/G RATIO (test code = 2234) 1.2 RATIO BILIRUBIN, TOTAL (test code = 2207) 0.2 MG/DL ALKALINE PHOSPHATASE (test code = 2204) 109 U/L AST (test code = 2218) 25 U/L ALT (test code = 2219) 23 U/L Moises CovingtonHEMOGLOBIN [id number] 00:00:00* Test Item Value Reference Range Interpretation Comme [facility] HEMOGLOBIN A1c (test code = 43404) 6.0 % Moises CovingtonCBC W/AUTO [id number] 00:00:00* Test Item Value Reference Range Interpretation Comme nts WBC (test code = 1001) 8.4 K/UL RBC (test code = 1002) 5.05 M/UL HEMOGLOBIN (test code = 1003) 13.7 G/DL HEMATOCRIT (test code = 1004) 42.3 % MCV (test code = 1005) 83.8 fL MCH (test code = 1006) 27.1 PG MCHC (test code = 1007) 32.4 G/DL RDW (test code = 1038) 14.6 % NEUTROPHILS (test code = 1008) 42.3 % LYMPHOCYTES (test code = 1010) 41.3 % MONOCYTES (test code = 1011) 6.2 % EOSINOPHILS (test code = 1012) 9.5 % BASOPHILS (test code = 1013) 0.7 % PLATELET COUNT (test code = 1015) 274 K/UL Moises CovingtonCOMPREHENSIVE METABOLIC [id number] 00:00:00* Test Item Value Reference Range Interpretation Comme nts GLUCOSE (test code = 2217) 84 MG/DL BUN (test code = 2208) 19 MG/DL CREATININE (test code = 2214) 1.12 MG/DL eGFR AMER. (test cod e = 32109) 63 ML/MIN/1.73 eGFR NON- AMER. (test code = 86115) 54 ML/MIN/1.73 CALC BUN/CREAT (test code = 2235) 17 RATIO SODIUM (test code = 2231) 142 MEQ/L POTASSIUM (test code = 2228) 5.7 MEQ/L CHLORIDE (test code = 2215) 105 MEQ/L CARBON DIOXIDE (test code = 2206) 26 MEQ/L CALCIUM (test code = 2209) 10.7 MG/DL PROTEIN, TOTAL (test code = 2229) 8.5 G/DL ALBUMIN (test code = 2201) 4.7 G/DL CALC GLOBULIN (test code = 2240) 3.8 G/DL CALC A/G RATIO (test code = 2234) 1.2 RATIO BILIRUBIN, TOTAL (test code = 2207) 0.2 MG/DL ALKALINE PHOSPHATASE (test code = 2204) 109 U/L AST (test code = 2218) 25 U/L ALT (test code = 2219) 23 U/L Moises CovingtonHEMOGLOBIN [id number] 00:00:00* Test Item Value Reference Range Interpretation Comme nts HEMOGLOBIN A1c (test code = 17222) 6.0 % Moises CovingtonCBC W/AUTO [id number] 00:00:00* Test Item Value Reference Range Interpretation Comme nts WBC (test code = 1001) 8.4 K/UL RBC (test code = 1002) 5.05 M/UL HEMOGLOBIN (test code = 1003) 13.7 G/DL HEMATOCRIT (test code = 1004) 42.3 % MCV (test code = 1005) 83.8 fL MCH (test code = 1006) 27.1 PG MCHC (test code = 1007) 32.4 G/DL RDW (test code = 1038) 14.6 % NEUTROPHILS (test code = 1008) 42.3 % LYMPHOCYTES (test code = 1010) 41.3 % MONOCYTES (test code = 1011) 6.2 % EOSINOPHILS (test code = 1012) 9.5 % BASOPHILS (test code = 1013) 0.7 % PLATELET COUNT (test code = 1015) 274 K/UL Moises CovingtonCOMPREHENSIVE METABOLIC [id number] 00:00:00* Test Item Value Reference Range Interpretation Comme nts GLUCOSE (test code = 2217) 84 MG/DL BUN (test code = 2208) 19 MG/DL CREATININE (test code = 2214) 1.12 MG/DL eGFR AMER. (test cod e = 49108) 63 ML/MIN/1.73 eGFR NON- AMER. (test code = 22597) 54 ML/MIN/1.73 CALC BUN/CREAT (test code = 2235) 17 RATIO SODIUM (test code = 2231) 142 MEQ/L POTASSIUM (test code = 2228) 5.7 MEQ/L CHLORIDE (test code = 2215) 105 MEQ/L CARBON DIOXIDE (test code = 2206) 26 MEQ/L CALCIUM (test code = 2209) 10.7 MG/DL PROTEIN, TOTAL (test code = 2229) 8.5 G/DL ALBUMIN (test code = 2201) 4.7 G/DL CALC GLOBULIN (test code = 2240) 3.8 G/DL CALC A/G RATIO (test code = 2234) 1.2 RATIO BILIRUBIN, TOTAL (test code = 2207) 0.2 MG/DL ALKALINE PHOSPHATASE (test code = 2204) 109 U/L AST (test code = 2218) 25 U/L ALT (test code = 2219) 23 U/L Moises CovingtonHEMOGLOBIN [id number] 00:00:00* Test Item Value Reference Range Interpretation Comme nts HEMOGLOBIN A1c (test code = 88938) 6.0 % Moises CovingtonCBC W/AUTO [id number] 00:00:00* Test Item Value Reference Range Interpretation Comme nts WBC (test code = 1001) 8.4 K/UL RBC (test code = 1002) 5.05 M/UL HEMOGLOBIN (test code = 1003) 13.7 G/DL HEMATOCRIT (test code = 1004) 42.3 % MCV (test code = 1005) 83.8 fL MCH (test code = 1006) 27.1 PG MCHC (test code = 1007) 32.4 G/DL RDW (test code = 1038) 14.6 % NEUTROPHILS (test code = 1008) 42.3 % LYMPHOCYTES (test code = 1010) 41.3 % MONOCYTES (test code = 1011) 6.2 % EOSINOPHILS (test code = 1012) 9.5 % BASOPHILS (test code = 1013) 0.7 % PLATELET COUNT (test code = 1015) 274 K/UL Moises CovingtonCOMPREHENSIVE METABOLIC [id number] 00:00:00* Test Item Value Reference Range Interpretation Comme nts GLUCOSE (test code = 2217) 84 MG/DL BUN (test code = 2208) 19 MG/DL CREATININE (test code = 2214) 1.12 MG/DL eGFR AMER. (test cod e = 51986) 63 ML/MIN/1.73 eGFR NON- AMER. (test code = 46630) 54 ML/MIN/1.73 CALC BUN/CREAT (test code = 2235) 17 RATIO SODIUM (test code = 2231) 142 MEQ/L POTASSIUM (test code = 2228) 5.7 MEQ/L CHLORIDE (test code = 2215) 105 MEQ/L CARBON DIOXIDE (test code = 2206) 26 MEQ/L CALCIUM (test code = 2209) 10.7 MG/DL PROTEIN, TOTAL (test code = 2229) 8.5 G/DL ALBUMIN (test code = 2201) 4.7 G/DL CALC GLOBULIN (test code = 2240) 3.8 G/DL CALC A/G RATIO (test code = 2234) 1.2 RATIO BILIRUBIN, TOTAL (test code = 2207) 0.2 MG/DL ALKALINE PHOSPHATASE (test code = 2204) 109 U/L AST (test code = 2218) 25 U/L ALT (test code = 2219) 23 U/L Moises CovingtonHEMOGLOBIN [id number] 00:00:00* Test Item Value Reference Range Interpretation Comme nts HEMOGLOBIN A1c (test code = 71954) 6.0 % Moises CovingtonCBC W/AUTO [id number] 00:00:00* Test Item Value Reference Range Interpretation Comme nts WBC (test code = 1001) 8.4 K/UL RBC (test code = 1002) 5.05 M/UL HEMOGLOBIN (test code = 1003) 13.7 G/DL HEMATOCRIT (test code = 1004) 42.3 % MCV (test code = 1005) 83.8 fL MCH (test code = 1006) 27.1 PG MCHC (test code = 1007) 32.4 G/DL RDW (test code = 1038) 14.6 % NEUTROPHILS (test code = 1008) 42.3 % LYMPHOCYTES (test code = 1010) 41.3 % MONOCYTES (test code = 1011) 6.2 % EOSINOPHILS (test code = 1012) 9.5 % BASOPHILS (test code = 1013) 0.7 % PLATELET COUNT (test code = 1015) 274 K/UL Moises CovingtonCOMPREHENSIVE METABOLIC [id number] 00:00:00* Test Item Value Reference Range Interpretation Comme nts GLUCOSE (test code = 2217) 84 MG/DL BUN (test code = 2208) 19 MG/DL CREATININE (test code = 2214) 1.12 MG/DL eGFR AMER. (test cod e = 72572) 63 ML/MIN/1.73 eGFR NON- AMER. (test code = 72216) 54 ML/MIN/1.73 CALC BUN/CREAT (test code = 2235) 17 RATIO SODIUM (test code = 2231) 142 MEQ/L POTASSIUM (test code = 2228) 5.7 MEQ/L CHLORIDE (test code = 2215) 105 MEQ/L CARBON DIOXIDE (test code = 2206) 26 MEQ/L CALCIUM (test code = 2209) 10.7 MG/DL PROTEIN, TOTAL (test code = 2229) 8.5 G/DL ALBUMIN (test code = 2201) 4.7 G/DL CALC GLOBULIN (test code = 2240) 3.8 G/DL CALC A/G RATIO (test code = 2234) 1.2 RATIO BILIRUBIN, TOTAL (test code = 2207) 0.2 MG/DL ALKALINE PHOSPHATASE (test code = 2204) 109 U/L AST (test code = 2218) 25 U/L ALT (test code = 2219) 23 U/L Moises CovingtonHEMOGLOBIN [id number] 00:00:00* Test Item Value Reference Range Interpretation Comme [facility] HEMOGLOBIN A1c (test code = 50736) 6.0 % Moises Emerson AdriaCBC W/AUTO [id number] 00:00:00* Test Item Value Reference Range Interpretation Comme nts WBC (test code = 1001) 8.4 K/UL RBC (test code = 1002) 5.05 M/UL HEMOGLOBIN (test code = 1003) 13.7 G/DL HEMATOCRIT (test code = 1004) 42.3 % MCV (test code = 1005) 83.8 fL MCH (test code = 1006) 27.1 PG MCHC (test code = 1007) 32.4 G/DL RDW (test code = 1038) 14.6 % NEUTROPHILS (test code = 1008) 42.3 % LYMPHOCYTES (test code = 1010) 41.3 % MONOCYTES (test code = 1011) 6.2 % EOSINOPHILS (test code = 1012) 9.5 % BASOPHILS (test code = 1013) 0.7 % PLATELET COUNT (test code = 1015) 274 K/UL Moises CovingtonCOMPREHENSIVE METABOLIC [id number] 00:00:00* Test Item Value Reference Range Interpretation Comme nts GLUCOSE (test code = 2217) 84 MG/DL BUN (test code = 2208) 19 MG/DL CREATININE (test code = 2214) 1.12 MG/DL eGFR AMER. (test cod e = 21088) 63 ML/MIN/1.73 eGFR NON- AMER. (test code = 38774) 54 ML/MIN/1.73 CALC BUN/CREAT (test code = 2235) 17 RATIO SODIUM (test code = 2231) 142 MEQ/L POTASSIUM (test code = 2228) 5.7 MEQ/L CHLORIDE (test code = 2215) 105 MEQ/L CARBON DIOXIDE (test code = 2206) 26 MEQ/L CALCIUM (test code = 2209) 10.7 MG/DL PROTEIN, TOTAL (test code = 2229) 8.5 G/DL ALBUMIN (test code = 2201) 4.7 G/DL CALC GLOBULIN (test code = 2240) 3.8 G/DL CALC A/G RATIO (test code = 2234) 1.2 RATIO BILIRUBIN, TOTAL (test code = 2207) 0.2 MG/DL ALKALINE PHOSPHATASE (test code = 2204) 109 U/L AST (test code = 2218) 25 U/L ALT (test code = 2219) 23 U/L Moises CovingtonHEMOGLOBIN [id number] 00:00:00* Test Item Value Reference Range Interpretation Comme [facility] HEMOGLOBIN A1c (test code = 72672) 6.0 % Moises CovingtonCBC W/AUTO [id number] 00:00:00* Test Item Value Reference Range Interpretation Comme donal WBC (test code = 1001) 8.4 K/UL RBC (test code = 1002) 5.05 M/UL HEMOGLOBIN (test code = 1003) 13.7 G/DL HEMATOCRIT (test code = 1004) 42.3 % MCV (test code = 1005) 83.8 fL MCH (test code = 1006) 27.1 PG MCHC (test code = 1007) 32.4 G/DL RDW (test code = 1038) 14.6 % NEUTROPHILS (test code = 1008) 42.3 % LYMPHOCYTES (test code = 1010) 41.3 % MONOCYTES (test code = 1011) 6.2 % EOSINOPHILS (test code = 1012) 9.5 % BASOPHILS (test code = 1013) 0.7 % PLATELET COUNT (test code = 1015) 274 K/UL Moises CovingtonCOMPREHENSIVE METABOLIC [id number] 00:00:00* Test Item Value Reference Range Interpretation Comme nts GLUCOSE (test code = 2217) 84 MG/DL BUN (test code = 2208) 19 MG/DL CREATININE (test code = 2214) 1.12 MG/DL eGFR AMER. (test cod e = 77280) 63 ML/MIN/1.73 eGFR NON- AMER. (test code = 01224) 54 ML/MIN/1.73 CALC BUN/CREAT (test code = 2235) 17 RATIO SODIUM (test code = 2231) 142 MEQ/L POTASSIUM (test code = 2228) 5.7 MEQ/L CHLORIDE (test code = 2215) 105 MEQ/L CARBON DIOXIDE (test code = 2206) 26 MEQ/L CALCIUM (test code = 2209) 10.7 MG/DL PROTEIN, TOTAL (test code = 2229) 8.5 G/DL ALBUMIN (test code = 2201) 4.7 G/DL CALC GLOBULIN (test code = 2240) 3.8 G/DL CALC A/G RATIO (test code = 2234) 1.2 RATIO BILIRUBIN, TOTAL (test code = 2207) 0.2 MG/DL ALKALINE PHOSPHATASE (test code = 2204) 109 U/L AST (test code = 2218) 25 U/L ALT (test code = 2219) 23 U/L Moises CovingtonHEMOGLOBIN [id number] 00:00:00* Test Item Value Reference Range Interpretation Comme [facility] HEMOGLOBIN A1c (test code = 05736) 6.0 % Moises CovingtonCBC W/AUTO [id number] 00:00:00* Test Item Value Reference Range Interpretation Comme nts WBC (test code = 1001) 8.4 K/UL RBC (test code = 1002) 5.05 M/UL HEMOGLOBIN (test code = 1003) 13.7 G/DL HEMATOCRIT (test code = 1004) 42.3 % MCV (test code = 1005) 83.8 fL MCH (test code = 1006) 27.1 PG MCHC (test code = 1007) 32.4 G/DL RDW (test code = 1038) 14.6 % NEUTROPHILS (test code = 1008) 42.3 % LYMPHOCYTES (test code = 1010) 41.3 % MONOCYTES (test code = 1011) 6.2 % EOSINOPHILS (test code = 1012) 9.5 % BASOPHILS (test code = 1013) 0.7 % PLATELET COUNT (test code = 1015) 274 K/UL Moises Idania AdriaCOMPREHENSIVE METABOLIC [id number] 00:00:00* Test Item Value Reference Range Interpretation Comme nts GLUCOSE (test code = 2217) 84 MG/DL BUN (test code = 2208) 19 MG/DL CREATININE (test code = 2214) 1.12 MG/DL eGFR AMER. (test cod e = 30419) 63 ML/MIN/1.73 eGFR NON- AMER. (test code = 11852) 54 ML/MIN/1.73 CALC BUN/CREAT (test code = 2235) 17 RATIO SODIUM (test code = 2231) 142 MEQ/L POTASSIUM (test code = 2228) 5.7 MEQ/L CHLORIDE (test code = 2215) 105 MEQ/L CARBON DIOXIDE (test code = 2206) 26 MEQ/L CALCIUM (test code = 2209) 10.7 MG/DL PROTEIN, TOTAL (test code = 2229) 8.5 G/DL ALBUMIN (test code = 2201) 4.7 G/DL CALC GLOBULIN (test code = 2240) 3.8 G/DL CALC A/G RATIO (test code = 2234) 1.2 RATIO BILIRUBIN, TOTAL (test code = 2207) 0.2 MG/DL ALKALINE PHOSPHATASE (test code = 2204) 109 U/L AST (test code = 2218) 25 U/L ALT (test code = 2219) 23 U/L Moises Idania AdriaHEMOGLOBIN [id number] 00:00:00* Test Item Value Reference Range Interpretation Comme nts HEMOGLOBIN A1c (test code = 48420) 6.0 % Moises CovingtonCBC W/AUTO [id number] 00:00:00* Test Item Value Reference Range Interpretation Comme nts WBC (test code = 1001) 8.4 K/UL RBC (test code = 1002) 5.05 M/UL HEMOGLOBIN (test code = 1003) 13.7 G/DL HEMATOCRIT (test code = 1004) 42.3 % MCV (test code = 1005) 83.8 fL MCH (test code = 1006) 27.1 PG MCHC (test code = 1007) 32.4 G/DL RDW (test code = 1038) 14.6 % NEUTROPHILS (test code = 1008) 42.3 % LYMPHOCYTES (test code = 1010) 41.3 % MONOCYTES (test code = 1011) 6.2 % EOSINOPHILS (test code = 1012) 9.5 % BASOPHILS (test code = 1013) 0.7 % PLATELET COUNT (test code = 1015) 274 K/UL Moises CovingtonCOMPREHENSIVE METABOLIC [id number] 00:00:00* Test Item Value Reference Range Interpretation Comme nts GLUCOSE (test code = 2217) 84 MG/DL BUN (test code = 2208) 19 MG/DL CREATININE (test code = 2214) 1.12 MG/DL eGFR AMER. (test cod e = 48966) 63 ML/MIN/1.73 eGFR NON- AMER. (test code = 95033) 54 ML/MIN/1.73 CALC BUN/CREAT (test code = 2235) 17 RATIO SODIUM (test code = 2231) 142 MEQ/L POTASSIUM (test code = 2228) 5.7 MEQ/L CHLORIDE (test code = 2215) 105 MEQ/L CARBON DIOXIDE (test code = 2206) 26 MEQ/L CALCIUM (test code = 2209) 10.7 MG/DL PROTEIN, TOTAL (test code = 2229) 8.5 G/DL ALBUMIN (test code = 2201) 4.7 G/DL CALC GLOBULIN (test code = 2240) 3.8 G/DL CALC A/G RATIO (test code = 2234) 1.2 RATIO BILIRUBIN, TOTAL (test code = 2207) 0.2 MG/DL ALKALINE PHOSPHATASE (test code = 2204) 109 U/L AST (test code = 2218) 25 U/L ALT (test code = 2219) 23 U/L Moises CovingtonHEMOGLOBIN [id number] 00:00:00* Test Item Value Reference Range Interpretation Comme nts HEMOGLOBIN A1c (test code = 02369) 6.0 % Moises CovingtonCBC W/AUTO [id number] 00:00:00* Test Item Value Reference Range Interpretation Comme nts WBC (test code = 1001) 8.4 K/UL RBC (test code = 1002) 5.05 M/UL HEMOGLOBIN (test code = 1003) 13.7 G/DL HEMATOCRIT (test code = 1004) 42.3 % MCV (test code = 1005) 83.8 fL MCH (test code = 1006) 27.1 PG MCHC (test code = 1007) 32.4 G/DL RDW (test code = 1038) 14.6 % NEUTROPHILS (test code = 1008) 42.3 % LYMPHOCYTES (test code = 1010) 41.3 % MONOCYTES (test code = 1011) 6.2 % EOSINOPHILS (test code = 1012) 9.5 % BASOPHILS (test code = 1013) 0.7 % PLATELET COUNT (test code = 1015) 274 K/UL Moises CovingtonCOMPREHENSIVE METABOLIC [id number] 00:00:00* Test Item Value Reference Range Interpretation Comme nts GLUCOSE (test code = 2217) 84 MG/DL BUN (test code = 2208) 19 MG/DL CREATININE (test code = 2214) 1.12 MG/DL eGFR AMER. (test cod e = 65115) 63 ML/MIN/1.73 eGFR NON- AMER. (test code = 19732) 54 ML/MIN/1.73 CALC BUN/CREAT (test code = 2235) 17 RATIO SODIUM (test code = 2231) 142 MEQ/L POTASSIUM (test code = 2228) 5.7 MEQ/L CHLORIDE (test code = 2215) 105 MEQ/L CARBON DIOXIDE (test code = 2206) 26 MEQ/L CALCIUM (test code = 2209) 10.7 MG/DL PROTEIN, TOTAL (test code = 2229) 8.5 G/DL ALBUMIN (test code = 2201) 4.7 G/DL CALC GLOBULIN (test code = 2240) 3.8 G/DL CALC A/G RATIO (test code = 2234) 1.2 RATIO BILIRUBIN, TOTAL (test code = 2207) 0.2 MG/DL ALKALINE PHOSPHATASE (test code = 2204) 109 U/L AST (test code = 2218) 25 U/L ALT (test code = 2219) 23 U/L Moises Covington Notes Date/Time Note Provider Source [facility]2025-08-05 00:00:00 [facility]2025-05-06 00:00:00 [facility]2025-04-08 00:00:00 [facility]2025-01-15 00:00:00 [facility]2024-09-20 00:00:00 [facility]2024-09-06 00:00:00 [facility]2024-07-02 00:00:00 [facility]2024-06-20 00:00:00 [facility]2024-06-19 00:00:00 [facility]2024-05-09 00:00:00 [facility]
--- NOTE | 2025-09-07 08:40 | EDPHYS ---
Physician Documentation [facility] Name: Donna Patino Age: 65 yrs Sex: Female : 1960 Arrival Date: 09/07/2025 Time: 07:36 Bed 20 Private MD: ED Physician Sahil Castro HPI: 09/07 07:57 This 65 yrs old Black Female presents to ER via Unassigned with complaints of Arm Pain. rn 07:57 The patient or guardian complains of pain. Patient reports seen here 2 weeks ago status rn post fall, initial x-ray did not show fracture, followed up with PCP last week and repeat x-ray showed possible fracture. Has appointment later on today with Dr. Jeffery. PCP sent her here for splinting. Patient reports still having pain from injury but not significantly worse. No swelling. No open wounds. No numbness or tingling. Historical: - PMHx: 08:02 Hypertension; iw - Immunization history:: Adult Immunizations up to date. - Infectious Disease History:: Denies. - Family history:: not pertinent. - Social history:: Smoking status: Patient denies any tobacco usage or history of. - Hospitalizations: : No recent hospitalization is reported. ROS: 07:57 Constitutional: Negative for fever, chills, and weight loss, MS/Extremity: Positive for rn left wrist pain Neuro: Negative for weakness or numbness Exam: 07:57 Constitutional: This is a well developed, well nourished patient who is awake, alert, rn and in no acute distress. MS/ Extremity: Left arm in sling, pulses equal, no cyanosis, no swelling. Mild tenderness mid left wrist. No proximal forearm/elbow/humerus tenderness. Vital Signs: 08:02 BP 139 / 67; Pulse 50; Resp 16; Temp 97.4; Pulse Ox 100% on R/A; Pain 9/10; hb 08:02 Pain Scale: Adult hb Gunner Coma Score: 07:55 Eye Response: spontaneous(4). Motor Response: obeys commands(6). Verbal Response: zm oriented(5). Total: 15. MDM: 07:39 Medical Screening Exam initiated rn 08:39 Differential diagnosis: closed fracture. Data reviewed: vital signs, nurses notes, rn radiologic studies, plain films, and as a result, I will discharge patient. Independent interpretation of the following test(s) in the Emergency Department X-Ray: My interpretation is X-ray left wrist images show midshaft radius fracture with moderate displacement per my interpretation. Counseling: I had a detailed discussion with the patient and/or guardian regarding the historical points, exam findings, and any diagnostic results supporting the discharge/admit diagnosis, radiology results, the need for outpatient follow up, to return to the emergency department if symptoms worsen or persist or if there are any questions or concerns that arise at home. Special discussion: I discussed with the patient/guardian in detail that at this point there is no indication for admission to the hospital. It is understood, however, that if the symptoms persist or worsen the patient needs to return immediately for re-evaluation. Based on the history and exam findings, there is no indication for further emergent testing or inpatient evaluation. I discussed with the patient/guardian the need to see the orthopedic surgeon for further evaluation of the symptoms. ED course: Fracture evident on x-ray, fractures 2 weeks old, will not manipulate and has appointment with Dr. Jeffery today. Will defer further treatment to him as most likely will need surgery. Explained to patient the importance of following up as she might need surgery. Return precautions given and understood.. 09/07 08:37 Order name: Forearm Left EDLA 09/07 07:56 Order name: Splint - Sugar Tong - Forearm; Complete Time: 08:13 rn Administered Medications: No medications were administered Disposition Summary: 09/07/25 08:40 Discharge Ordered Notes: Location: Home rn Problem: an ongoing problem rn Symptoms: are unchanged rn Condition: Stable rn Diagnosis - Displaced transverse fracture of shaft of left radius rn Followup: rn - With: Gabriel Jeffery MD - When: Today - Reason: Recheck today's complaints, Continuance of care, Re-evaluation by your physician Discharge Instructions: - Discharge Summary Sheet rn - Cast or Splint Care, Adult rn - Wrist Fracture Treated With Immobilization rn Forms: - Medication Reconciliation Form rn - Antibiotic learning coach - Prescription Opioid Use rn - Patient Portal Instructions rn - Leadership Thank You Letter rn Signatures: Dispatcher MedHo Tori Azar RN RN iw Nieto, Roman, MD MD rn Baxter, Heather, RN RN Corrections: (The following items were deleted from the chart) 08:37 07:56 Wrist Left 3 View+[id number].BRZ ordered. EDMS EDMS
--- NOTE | 2025-09-07 08:40 | ER ---
Nurse's Notes [facility] Name: Donna Patino Age: 65 yrs Sex: Female : 1960 Arrival Date: 09/07/2025 Time: 07:36 Bed 20 Private MD: Diagnosis: Displaced transverse fracture of shaft of left radius Presentation: 09/07 08:02 Chief complaint: Right arm pain after fall 6 weeks ago, told by PCP she has forearm hb fracture. Coronavirus screen: At this time, the client does not indicate any symptoms associated with coronavirus-19. Ebola Screen: No symptoms or risks identified at this time. Initial Sepsis Screen: Does the patient meet any 2 criteria? No. Patient's initial sepsis screen is negative. Does the patient have a suspected source of infection? No. Patient's initial sepsis screen is negative. Risk Assessment: Do you want to hurt yourself or someone else? Patient reports no desire to harm self or others. Onset of symptoms was June 2025. 08:02 Method Of Arrival: Ambulatory hb 08:02 Acuity: RUSSEL 4 hb Historical: - PMHx: 08:02 Hypertension; iw - Immunization history:: Adult Immunizations up to date. - Infectious Disease History:: Denies. - Family history:: not pertinent. - Social history:: Smoking status: Patient denies any tobacco usage or history of. - Hospitalizations: : No recent hospitalization is reported. Screenin:55 [facility] ED Fall Risk Assessment (Adult) History of falling in the last 3 months, zm including since admission Yes- single mechanical fall (1 pt) Confusion or Disorientation No (0 pts) Intoxicated or Sedated No (0 pts) Impaired Gait No (0 pts) Mobility Assist Device Used No (0 pt) Altered Elimination No (0 pt) Score/Fall Risk Level 0 - 2 = Low Risk Oriented to surroundings, Maintained a safe environment, Educated pt \T\ family on fall prevention, incl call for assistance when getting out of bed, Provided non-skid footwear, Hourly rounding (assess needs \T\ fall precautionary measures) done, Used ambulatory aids as needed (educated on \T\ assisted with), Used gait belt as appropriate. Abuse screen: Denies threats or abuse. Denies injuries from another. Nutritional screening: No deficits noted. Tuberculosis screening: No symptoms or risk factors identified. Assessment: 07:55 General: Appears in no apparent distress. comfortable, Behavior is calm, cooperative. zm 07:55 Pain: Denies pain. Neuro: No deficits noted. Level of Consciousness is awake, alert, zm obeys commands, Oriented to person, place, time, situation. Cardiovascular: No deficits noted. Heart tones S1 S2 present Capillary refill < 3 seconds in bilateral fingers Patient's skin is warm and dry. Respiratory: No deficits noted. Airway is patent Respiratory effort is even, unlabored, Respiratory pattern is regular, symmetrical, Breath sounds are clear bilaterally. in right upper lobe, left upper lobe, left lower lobe and right lower lobe. GI: No signs and/or symptoms were reported involving the gastrointestinal system. Abdomen is flat, Bowel sounds present X 4 quads. Abd is soft and non tender X 4 quads. : No signs and/or symptoms were reported regarding the genitourinary system. EENT: No signs and/or symptoms were reported regarding the EENT system. Derm: No signs and/or symptoms reported regarding the dermatologic system. Musculoskeletal: Capillary refill < 3 seconds, in bilateral fingers. Range of motion: limited in left arm. Vital Signs: 08:02 BP 139 / 67; Pulse 50; Resp 16; Temp 97.4; Pulse Ox 100% on R/A; Pain 9/10; hb 08:02 Pain Scale: Adult hb Pass Christian Coma Score: 07:55 Eye Response: spontaneous(4). Motor Response: obeys commands(6). Verbal Response: zm oriented(5). Total: 15. ED Course: 07:38 Patient arrived in ED. im 07:39 Sahil Castro MD is Attending Physician. rn 07:55 Patient has correct armband on for positive identification. Bed in low position. Call zm light in reach. Side rails up X 1. Provided Education on: call light use. Client placed on continuous cardiac and pulse oximetry monitoring. NIBP monitoring applied. Pulse ox on. NIBP on. Door closed. Noise minimized. Lights dimmed. Warm blanket given. Verbal reassurance given. 07:57 Tori Rao, RN is Primary Nurse. iw 08:04 Triage completed. hb 08:04 Arm band placed on. hb 08:15 Orthoglass splint: Sugar tong splint applied on left arm. zm 08:37 Forearm Left In Process Unspecified. EDMS 08:40 Gabriel Jeffery MD is Referral Physician. rn 08:45 No provider procedures requiring assistance completed. Patient did not have IV access iw during this emergency room visit. Administered Medications: No medications were administered Medication: 07:55 VIS not applicable for this client. zm Outcome: 08:40 Discharge ordered by MD. rn 08:45 Discharged to home ambulatory, iw 08:45 Condition: good 08:45 Discharge instructions given to patient, Instructed on discharge instructions, follow up and referral plans. Demonstrated understanding of instructions, follow-up care, 08:45 Patient left the ED. iw Signatures: Dispatcher [employer] EDMS Tori Rao RN RN iw Sahil Castro MD MD rn Baxter, Heather, RN RN hb Martinez, Zaina RN RN Arlette Higgins Corrections: (The following items were deleted from the chart) 08:04 08:01 Chief complaint: hb hb
--- NOTE | 2025-09-07 09:03 | RAD REPORT ---
EXAMINATION: XR FOREARM CLINICAL INDICATION: Female, 65 years old. [facility] MAIN PAIN Bed Name: 20 TECHNIQUE: 2 view radiograph of the left forearm were obtained. . COMPARISON: No prior exam. FINDINGS: Displaced midshaft radius fracture, with medial displacement of the fragment and mild poste rior apex angulation. Fiberglas cast in place. Moderate degenerative changes throughout the wrist. No focal bone lesion. Soft tissues are unremarkable. IMPRESSION: Displaced midshaft radius fracture as above.
[2025-09-07 10:05] VITALS: BP 139/67; TEMP 97.4; O2SAT 100
== END 2025-09-07 08:45 | disposition home or self-care (01) ==
LOC: ER 07:36
PROC: 2W3DX1Z Immobilization of Left Lower Arm using Splint (ICD-10-PCS; principal; 2025-09-07)
DX: S52.322A Displaced transverse fracture of shaft of left radius, initial encounter for closed fracture (principal); W19.XXXA Unspecified fall, initial encounter; Y93.9 Activity, unspecified
CPT/HCPCS: 99283